=== PATIENT | male | born 1985 | race Caucasian/White ===

== ENCOUNTER → 2018-04-01 | Outpatient (CLI) | payer MEDICAID ==
[~2018-04-01] MED LIST: BUSP10TA95 PO; CATHETER FLUSH 10 ML SYR IV PRN; FLUO10TA PO; QUET100T69 PO
--- NOTE | 2018-04-01 13:38 | Diagnostic Imaging Report ---
Clinical indication: Patient with blood in stool. Comparison: None. Procedure: The patient was administered 5.42 millicuries of technetium 99m Choletec. After 60 minutes of the images, one can of Ensure was drink followed by another 60 minutes of imaging. A nuclear medicine hepatobiliary scan with ejection fraction was performed. Findings: There is prompt uptake and excretion of radiotracer by the liver. Activity is visible in the gallbladder by 25 minutes and the small bowel by 10 minutes. Ejection fraction of the gallbladder is calculated at 41% (normal >35%). The gallbladder visibly empties on the scans following the ingestion of Ensure. Impression: Normal hepatobiliary scan with normal gallbladder ejection fraction. Dictated by: Dictated on workstation # [id number]
== END ==
LOC: CARD 10:18
PROVIDERS: ATTEND Nurse Practitioner Community Health
DX: K92.1 Melena (principal); K92.0 Hematemesis; R19.7 Diarrhea, unspecified
CPT/HCPCS: 78227

== ENCOUNTER 2018-04-14 05:40 | Outpatient (CLI) | payer MEDICAID ==
[~2018-04-14] VITALS: Ht 170.2 cm; Wt 81.6 kg
[2018-04-15] MEDS ORDERED: FLUO10TA PO (09:11)
[2018-04-15] MEDS ORDERED: QUET100T69 PO (09:11)
[2018-04-15] MEDS ORDERED: BUSP10TA95 PO (09:11)
== END 2018-04-14 15:00 | disposition home or self-care (01) ==
LOC: PREOP 05:40
PROVIDERS: ATTEND Surgery
DX: Z01.818 Encounter for other preprocedural examination (principal)

== ENCOUNTER 2018-04-20 09:23 | Day surgery (SDC) | payer MEDICAID ==
[~2018-04-20] VITALS: Ht 170.2 cm; Wt 81.6 kg
[~2018-04-20 09:23] MED LIST changes: -CATHETER FLUSH 10 ML SYR IV PRN
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
--- OUTSIDE RECORDS SUMMARY | 2018-04-20 09:27 | XMS REPORT ---
Author Author SUSHMA KAUFFMAN Organization [employer] Address Unknown Phone Unavailable Care Team Providers Care Component Engineer Name Role Phone SUSHMA KAUFFMAN CP Unavailable Allergies, Adverse Reactions, Alerts Substance Reaction Event Type Penicillin V Potassium unknown Drug Allergy Ibuprofen Info Not Available Drug Allergy Benadryl Unknown reaction Drug Allergy Problems Problem Type Condition Code Onset Dates Condition Status Problem Intermittent explosive disorder 312.34 Active Problem Routine general medical examination at health care facility V70.0 Active Problem Dysthymic disorder 300.4 Active Assessment Depression, unspecified depression type F32.9 Active Problem Acute pharyngitis 462 Active Problem Influenza with other respiratory manifestations 487.1 Active Medications No Known Medications Procedures Procedure Coding System Code Date Office Visit, Est Pt., Level 2 CPT-4 38769 Mar 05, 2016 Vital Signs Date/Time: Mar 05, 2016 Cardiac Monitoring Heart Rate 85 bpm Weight 179 lbs Height 69 in BMI 26.43 Index Blood Pressure Diastolic 70 mmHg Blood Pressure Systolic 120 mmHg Results No Known Results Summary Purpose [employer] Submission
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
[2018-04-20] MEDS ORDERED: LACTATED RINGERS 1,000 ML IV ONE (09:28)
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
--- OUTSIDE RECORDS SUMMARY | 2018-04-20 09:28 | XMS REPORT | Continuity of Care Document ---
Author Author [facility] Address Unknown Phone Unavailable Allergies Active Description Code Type Severity Reaction Onset Reported/Identified Relationship to Patient Clinical Status Yes BENADRYL UNKNOWN UNKNOWN Yes IBUPROFEN UNKNOWN UNKNOWN Yes PENICILLINS MODERATE OTHER Yes Benadryl Drug Allergy N/A N/A 08/11/2013 Yes ibuprofen Drug Allergy N/A N/A 08/11/2013 Yes Penicillins Drug Allergy N/A N/A 08/11/2013 Yes No Allergy Information Available [id number] Drug Allergy Unknown N/A 2017 Yes diphenhydramine [id number] Drug Allergy Unknown RASH 04/15/2018 Yes ibuprofen [id number] Drug Allergy Unknown RASH 04/15/2018 Yes Penicillins [id number] Drug Allergy Unknown ANAPHYLAXIS 04/15/2018 Medications Medication Packaging Start Date Stop Date Route Dosage Sig FAMOTIDINE VIAL INJ 20 MG/2CC (PEPCID VIAL) MG 01/25/2017 01/25/2017 ONCE&2056 PANTOPAZOLE VIAL INJ 40 MG (PROTONIX IV) MG 01/25/2017 01/25/2017 ONCE&2056 NORMAL SALINE 1000CC IV BAG INJ 0.9 % (NS 1000CC IV BAG) ml 01/25/2017 02/09/2017 CONTINUOUSEVERY 0 Hour ONDANSETRON VIAL INJ 4 MG/2CC (ZOFRAN 2CC VIAL) MG 03/12/2018 03/12/2018 PRN ONCE LACTATED RINGERS 1000CC IV BAG INJ ml 03/12/2018 03/12/2018 ONCE&1909 PANTOPRAZOLE VIAL INJ 40 MG (PROTONIX IV) MG 03/12/2018 03/12/2018 ONCE&1909 ONDANSETRON VIAL INJ 4 MG/2CC (ZOFRAN 2CC VIAL) MG 03/12/2018 03/12/2018 PRN ONCE GI COCKTAIL SINGLE DOSE LIQ (GRASSHOPPER) ML 03/12/2018 03/12/2018 ONCE&2042 AZITHROMYCIN TAB 500 MG (ZITHROMAX) MG 03/12/2018 03/12/2018 ONCE&2110 PROMETHAZINE VIAL INJ 25 MG/CC (PHENERGAN VIAL) MG 03/12/2018 03/12/2018 PRN ONCE Problems Date Dx Coded Attending Type Code Diagnosis Diagnosed By 08/11/2013 KHADIJAH COYLE DO 487.1 INFLUENZA WITH OTHER RESPIRATORY MANIFESTATIONS 08/11/2013 KHADIJAH COYLE DO 487.1 INFLUENZA WITH OTHER RESPIRATORY MANIFESTATIONS 08/11/2013 DIANA SESAY DDS 487.1 INFLUENZA WITH OTHER RESPIRATORY MANIFESTATIONS 08/11/2013 JESUS DA SILVA APRN 487.1 INFLUENZA WITH OTHER RESPIRATORY MANIFESTATIONS 08/11/2013 KHADIJAH COYLE DO 487.1 INFLUENZA WITH OTHER RESPIRATORY MANIFESTATIONS 08/11/2013 JESUS DA SILVA APRN 487.1 INFLUENZA WITH OTHER RESPIRATORY MANIFESTATIONS 08/29/2013 KHADIJAH COYLE DO V70.0 ROUTINE GENERAL MEDICAL EXAMINATION AT A HEALTH CARE FACILITY 08/29/2013 DIANA SESAY DDS V70.0 ROUTINE GENERAL MEDICAL EXAMINATION AT A HEALTH CARE FACILITY 08/29/2013 JESUS DA SILVA APRN V70.0 ROUTINE GENERAL MEDICAL EXAMINATION AT A HEALTH CARE FACILITY 08/29/2013 KHADIJAH COYLE DO V70.0 ROUTINE GENERAL MEDICAL EXAMINATION AT A HEALTH CARE FACILITY 08/29/2013 JESUS DA SILVA APRN V70.0 ROUTINE GENERAL MEDICAL EXAMINATION AT A HEALTH CARE FACILITY 08/07/2014 KHADIJAH COYLE DO 462 ACUTE PHARYNGITIS 08/07/2014 JESUS DA SILVA APRN 462 ACUTE PHARYNGITIS 08/16/2014 KHADIJAH COYLE DO 300.4 DYSTHYMIC DISORDER 08/16/2014 KHADIJAH COYLE DO 312.34 INTERMITTENT EXPLOSIVE DISORDER 08/16/2014 JESUS DA SILVA APRN 300.4 DYSTHYMIC DISORDER 08/16/2014 JESUS DA SILVA APRN 312.34 INTERMITTENT EXPLOSIVE DISORDER 01/25/2017 KENNEDI MIRANDA 535.00 ACUTE GASTRITIS, WITHOUT MENTION OF HEMORRHAGE 01/25/2017 KENNEDI MIRANDA K29.00 ACUTE GASTRITIS WITHOUT BLEEDING 03/12/2018 Anthony Mendoza 535.00 ACUTE GASTRITIS, WITHOUT MENTION OF HEMORRHAGE 03/12/2018 Anthony Mendoza K29.00 ACUTE GASTRITIS WITHOUT BLEEDING 04/14/2018 AMELIA FELIX DO Ot Z01.818 ENCOUNTER FOR OTHER PREPROCEDURAL EXAMIN 04/14/2018 SHAHBAZ CROWDER Ot K92.0 HEMATEMESIS 04/14/2018 SHAHBAZ CROWDER Ot K92.1 MELENA 04/14/2018 SHAHBAZ CROWDER Ot R19.7 DIARRHEA, UNSPECIFIED 04/15/2018 AMELIA FELIX DO Ot Z01.818 ENCOUNTER FOR OTHER PREPROCEDURAL EXAMIN 04/15/2018 AMELIA FELIX DO, Ot Z01.818 ENCOUNTER FOR OTHER PREPROCEDURAL EXAMIN 04/20/2018 SHAHBAZ CROWDER Ot K92.0 HEMATEMESIS 04/20/2018 SHAHBAZ CROWDER Ot K92.1 MELENA 04/20/2018 SHAHBAZ CROWDER Ot R19.7 DIARRHEA, UNSPECIFIED Procedures Code Description [place] [address] INFLUENZA A & B (IN-HOUSE) 08/11/2013 75162 ROUTINE VENIPUNCTURE 08/16/2014 37613 URINE DRUG SCREEN (IN-HOUSE ) 08/16/2014 82900 TSH 08/16/2014 94072 A1C (IN-HOUSE) 08/16/2014 Results Test Result Range Amylase - 01/25/17 20:56 Amylase 56 U/L 20-100 CMP - 07/17/17 09:49 GLUCOSE 64 mg/dL 65-99 UREA NITROGEN (BUN) 18 mg/dL 7-25 CREATININE 1.06 mg/dL 0.60-1.35 eGFR NON-AFR. ZAMBIAN 91 mL/min/1.73m2 > OR=60 eGFR 106 mL/min/1.73m2 > OR=60 BUN/CREATININE RATIO NOT APPLICABLE (calc) 6-22 SODIUM 140 mmol/L 135-146 POTASSIUM 4.3 mmol/L 3.5-5.3 CHLORIDE 104 mmol/L 98-110 CARBON DIOXIDE 28 mmol/L 20-31 CALCIUM 9.7 mg/dL 8.6-10.3 PROTEIN, TOTAL 7.0 g/dL 6.1-8.1 ALBUMIN 4.5 g/dL 3.6-5.1 GLOBULIN 2.5 g/dL (calc) 1.9-3.7 ALBUMIN/GLOBULIN RATIO 1.8 (calc) 1.0-2.5 BILIRUBIN, TOTAL 0.5 mg/dL 0.2-1.2 ALKALINE PHOSPHATASE 73 U/L 40-115 AST 19 U/L 10-40 ALT 28 U/L 9-46 Mycoplasma - 03/12/18 19:10 Mycoplasma Positive Negative Lipase - 03/12/18 19:10 Lipase 44 U/L 7-59 Urinalysis - 03/12/18 20:00 Icotest N/A Negative Urine Crystals Amorphous material: few/HPF Urine Volume Urine Volume Sufficient (10mL) Urine-Appearance Slightly cloudy Clear Urine-Bacteria Trace Urine-Bilirubin Negative Negative Urine-Blood Negative Negative Urine-Color Yellow Colorless-Lt. Yellow Urine-Epithelial Cells 0-5/HPF Urine-Glucose Negative Negative Urine-Ketones 1+ Negative Urine-Leukocytes Negative Negative Urine-Mucus 4+ Urine-Nitrite Negative Negative Urine-Other Urine Saved if Culture Needed (48hrs from time of collection) Urine-pH 5.5 5-8.5 Urine-Protein Negative Negative Urine-RBC 0-2/HPF Urine-Specific [place] >=1.030 1.000-1.030 Urine-WBC 2-5/HPF Urobilinogen 0.2 0.2-1.0 Encounters ACCT No. Visit Date/Time Discharge Status Pt. Type Provider Facility Loc./Unit Complaint [id number] 10/02/2014 14:57:00 10/02/2014 23:59:59 CLS Outpatient JESUS DA SILVA APRN [id number] 08/16/2014 09:49:00 08/16/2014 23:59:59 CLS Outpatient KHADIJAH COYLE DO [id number] 04/12/2014 14:51:00 04/12/2014 23:59:59 CLS Outpatient JESUS DA SILVA APRN [id number] 10/26/2013 07:49:00 10/26/2013 23:59:59 CLS Outpatient DIANA SESAY DDS [id number] 08/29/2013 15:38:00 08/29/2013 23:59:59 CLS Outpatient KHADIJAH COYLE DO [id number] 08/11/2013 14:18:00 08/11/2013 23:59:59 [place] [id number] 01/15/2018 16:40:00 01/15/2018 23:59:59 CLS Outpatient DALY GARCIASUSHMA Juarez [facility] [id number] 07/17/2017 09:20:00 Document Registration [id number] 03/12/2018 18:13:00 Document Registration [id number] 03/12/2018 18:13:00 03/12/2018 21:40:00 [facility] [id number] 01/25/2017 20:07:00 01/25/2017 22:10:00 DIS Outpatient KENNEDI MIRANDA [id number] 01/25/2017 20:57:33 Document Registration [id number] 04/14/2018 05:40:00 04/14/2018 15:00:00 DIS Outpatient AMELIA FELIX DO Via [facility] PREOP COLONOSCOPY/EGD [id number] 04/01/2018 10:18:00 04/01/2018 23:59:59 CLS Outpatient SHAHBAZ CROWDER [facility] CARD BLOOD IN STOOL, HEMATEMESIS W/ NAUSEA [id number] 04/20/2018 09:23:00 ACT Outpatient AMELIA FELIX DO [facility] ENDO DIARRHEA/BLOOD IN STOOL/EPIGASTRIC ABD PAIN
[2018-04-20 09:30] VITALS: BP 121/86
[2018-04-20] MEDS ORDERED: LACTATED RINGERS 1,000 ML IV STA (09:35)
[2018-04-20] MEDS ORDERED: HURRICAINE EXT TUBE (BENZOCAINE) ONE (09:45)
[2018-04-20] MEDS ORDERED: HURRICAINE EXT TUBE (BENZOCAINE) XX PRN (09:45)
[2018-04-20] MEDS ORDERED: PROPOFOL INJECTION 50 ML IV ONE ×2 (09:54→10:13)
[2018-04-20] MEDS ORDERED: MIDAZOLAM 2 MG/2 ML (VERSED) VIAL ONE (09:55)
--- NOTE | 2018-04-20 09:57 | Progress Note-Pre Operative ---
Pre-Operative Progress Note H&P Reviewed The H&P was reviewed, patient examined and no changes noted. Date Seen by Provider: Apr 20, 2018 Time Seen by Provider: 09:57 Date H&P Reviewed: Apr 20, 2018 Time H&P Reviewed: 09:57 Pre-Operative Diagnosis: epigastric abdominal pain, blood in stool, diarrhea AMELIA FELIX DO Apr 20, 2018 09:57
[2018-04-20] MEDS ORDERED: PANT40TA2 PO (10:29)
--- NOTE | 2018-04-20 10:29 | Progress Note-Post Operative ---
Post-Operative Progess Note Surgeon (s)/Master Control Operator (s) Surgeon AMELIA FELIX DO Master Control Operator: na Pre-Operative Diagnosis epigastric abdominal pain, blood in stool, diarrhea Post-Operative Diagnosis small hiatal hernia, reflux esophagitis, normal colon Procedure & Operative Findings Date of Procedure 04/20/18 Procedure Performed/Findings egd c biopsies, colonoscopy Anesthesia Type per rice dryer mechanic Estimated Blood Loss Estimated blood loss (mL): none Specimens/Packing Specimens Removed antrum, ge AMELIA FELIX DO Apr 20, 2018 10:29
--- NOTE | 2018-04-20 10:31 | Discharge Inst-Simple/Standard ---
Discharge Inst-Standard Discharge Medications New, Converted or Re-Newed RX: Transmitted to Pharmacy Patient Instructions/Follow Up Plan of Care/Instructions/FU: 2 weeks Chand[place] Activity as Tolerated: Yes Discharge Diet: Regular Diet AMELIA FELIX DO Apr 20, 2018 10:31
[2018-04-20 11:15] VITALS: BP 115/71
[2018-04-20 11:45] VITALS: BP 116/79
[2018-04-20 12:10] VITALS: BP 116/79
--- NOTE | 2018-04-20 14:10 | OPERATIVE REPORT ---
DATE OF SERVICE: 04/20/2018 PREOPERATIVE DIAGNOSES: Epigastric abdominal pain, blood in stool, diarrhea. POSTOPERATIVE DIAGNOSES: Small hiatal hernia, reflux esophagitis, normal colon. PROCEDURE: EGD with biopsies and colonoscopy. SURGEON: Amelia Tariq DO ANESTHESIA: Per HEAD OF CYTOGENETICS. ESTIMATED BLOOD LOSS: None. COMPLICATIONS: None. INDICATIONS: The patient is a 33-year-old male with epigastric abdominal pain. He states he had some blood in stools and having some diarrhea. He understands risks and benefits of procedure and wished to proceed with procedure. Consent was signed on the chart. DESCRIPTION OF PROCEDURE: The patient was taken to the endoscopy suite, placed in left lateral recumbent position. Timeout was performed. Scope was inserted into the mouth, down the esophagus, stomach and into the duodenum without difficulty. There were no polyps, masses or ulcerations in the duodenum. Scope was slowly retracted back into the stomach where it was further insufflated. No polyps, masses or ulcerations. No erythematous changes. Biopsy of the antrum was obtained. Scope was retroflexed noting a small hiatal hernia, no other pathology. Scope was then returned to its normal position, slowly withdrawn to the distal esophagus, had significant erythema at the GE junction. Biopsy of the GE junction was obtained. Scope was then slowly retracted back until completely removed, noting no other pathology. Digital rectal exam was performed. There were no palpable polyps, masses or ulcerations. The scope was inserted in the rectum and advanced all the way to the cecum with minimal difficulty. Prep was adequate. Scope was then slowly retracted back. There were no polyps, masses or ulcerations in the cecum, ascending, transverse, descending and sigmoid colon. Once in the rectum, scope was also retroflexed noting no other pathology. Scope was returned to its normal position, slowly withdrawn until completely removed. RECOMMENDATIONS: The patient was started on Protonix 40 mg daily if this does not improve his symptoms. He will follow up in the office in approximately 2 weeks. If he has any return of condition, he should be reevaluated at that time. The patient will need repeat colonoscopy per routine guidelines. Job ID: [id number] DocumentID: [id number] Dictated Date: 04/20/2018 10:33:03 School Physical Therapist Date: 04/20/2018 14:09:22 Dictated By: AMELIA TARIQ DO
--- NOTE | 2018-04-20 14:28 | Anesthesia-General Post-Op ---
MAC Patient Condition Mental Status/LOC: Same as Preop Cardiovascular: Satisfactory Nausea/Vomiting: Absent Respiratory: Satisfactory Pain: Controlled Complications: Absent Post Op Complications Complications None Follow Up Care/Instructions Patient Instructions None needed. Anesthesiology Discharge Order Discharge Order Patient is doing well, no complaints, stable vital signs, no apparent adverse anesthesia problems. No complications reported per nursing. YAAKOV SAVAGE CRNA Apr 20, 2018 14:28
[2018-04-21] MEDS ORDERED: ONDA8TAB13 SL (22:43)
[2018-04-23] MEDS ORDERED: CEFD300C3 PO (11:32)
== END 2018-04-20 12:10 | disposition home or self-care (01) ==
LOC: ENDO 09:23
PROVIDERS: ATTEND Surgery
DX: K21.0 Gastro-esophageal reflux disease with esophagitis (principal); K44.9 Diaphragmatic hernia without obstruction or gangrene; R19.7 Diarrhea, unspecified; K92.1 Melena; F17.210 Nicotine dependence, cigarettes, uncomplicated

== ENCOUNTER 2018-04-21 22:23 | Inpatient (IN) | payer MEDICAID ==
[~2018-04-21] VITALS: Ht 170.2 cm; Wt 81.6 kg
[~2018-04-21 22:23] MED LIST changes: +PANT40TA2 PO
--- OUTSIDE RECORDS SUMMARY | 2018-04-21 22:29 | XMS REPORT | Continuity of Care Document ---
Author Author [facility] Address Unknown Phone Unavailable Allergies Active Description Code Type Severity Reaction Onset Reported/Identified Relationship to Patient Clinical Status Yes BENADRYL UNKNOWN UNKNOWN Yes IBUPROFEN UNKNOWN UNKNOWN Yes PENICILLINS MODERATE OTHER Yes Benadryl Drug Allergy N/A N/A 08/11/2013 Yes ibuprofen Drug Allergy N/A N/A 08/11/2013 Yes Penicillins Drug Allergy N/A N/A 08/11/2013 Yes No Allergy Information Available [id number] Drug Allergy Unknown N/A 2017 Yes diphenhydramine [id number] Drug Allergy Unknown RASH 04/15/2018 Yes ibuprofen [id number] Drug Allergy Unknown RASH 04/15/2018 Yes Penicillins [id number] Drug Allergy Unknown ANAPHYLAXIS 04/15/2018 Medications Medication [...] Procedures Code [place] [address] INFLUENZA A & B (IN-HOUSE) 08/11/2013 05301 ROUTINE VENIPUNCTURE 08/16/2014 54809 URINE DRUG SCREEN (IN-HOUSE ) 08/16/2014 13920 TSH 08/16/2014 48159 A1C (IN-HOUSE) 08/16/2014 Results Test Result Range Amylase - 01/25/17 20:56 Amylase 56 U/L 20-100 CMP - 07/17/17 09:49 GLUCOSE 64 mg/dL 65-99 UREA NITROGEN (BUN) 18 mg/dL 7-25 CREATININE 1.06 mg/dL 0.60-1.35 eGFR NON-AFR. TOGOLESE 91 mL/min/1.73m2 > OR=60 eGFR 106 mL/min/1.73m2 [...] 5-8.5 Urine-Protein Negative Negative Urine-RBC 0-2/HPF Urine-Specific [place] >=1.030 1.000-1.030 Urine-WBC 2-5/HPF Urobilinogen 0.2 0.2-1.0 Encounters ACCT No. Visit Date/Time Discharge Status Pt. Type Provider Facility Loc./Unit Complaint [id number] 10/02/2014 14:57:00 10/02/2014 23:59:59 CLS Outpatient JESUS DA SILVA APRN [id number] 08/16/2014 09:49:00 08/16/2014 23:59:59 CLS Outpatient KHADIJAH COYLE DO [id number] 04/12/2014 14:51:00 04/12/2014 23:59:59 CLS Outpatient JESUS DA SILVA APRN [id number] 10/26/2013 07:49:00 10/26/2013 23:59:59 CLS Outpatient DIANA SESAY DDS [id number] 08/29/2013 15:38:00 08/29/2013 23:59:59 CLS Outpatient KHADIJAH COYLE DO [id number] 08/11/2013 14:18:00 08/11/2013 23:59:59 [place] [id number] 01/15/2018 16:40:00 01/15/2018 23:59:59 CLS Outpatient SUSHMA KAUFFMAN APRN [facility] [id number] 07/17/2017 09:20:00 Document Registration [id number] 03/12/2018 18:13:00 Document Registration [id number] 03/12/2018 18:13:00 03/12/2018 21:40:00 [facility] [id number] 01/25/2017 20:07:00 01/25/2017 22:10:00 DIS Outpatient KENNEDI MIRANDA [id number] 01/25/2017 20:57:33 Document Registration [id number] 04/20/2018 09:23:00 04/20/2018 12:10:00 DIS Outpatient AMELIA FELIX DO [facility] ENDO DIARRHEA/BLOOD IN STOOL/ EPIGASTRIC ABD PAIN [id number] 04/14/2018 05:40:00 04/14/2018 15:00:00 DIS Outpatient AMELIA FELIX DO [facility] PREOP COLONOSCOPY/EGD [id number] 04/01/2018 10:18:00 04/01/2018 23:59:59 CLS Outpatient SHAHBAZ CROWDER [facility] CARD BLOOD IN STOOL, HEMATEMESIS W/ NAUSEA [id number] 04/21/2018 22:23:00 ACT Emergency ARMANI BANEGAS, ESTEPHANIA Arroyo [facility] ER VOMITING BLOOD
[2018-04-21] MEDS ORDERED: ONDA8TAB13 SL (22:43)
[2018-04-21] MEDS ORDERED: ONDANSETRON 4 MG/2 ML (SDV) Z0FRAN IVP ONE (22:45)
[2018-04-21] MEDS ORDERED: CEFEPIME INJECTION 2,000 MG in NS (IVPB) 50 ML IV ONE (22:45)
[2018-04-21] MEDS ORDERED: fentaNYL INJECTION 100 MCG/2 ML AMP IVP ONE (22:45)
[2018-04-21] MEDS ORDERED: LACTATED RINGERS 1,500 ML IV PRN (22:45)
--- NOTE | 2018-04-21 22:50 | ED GI ---
General Chief Complaint: Abdominal/GI Problems Stated Complaint: VOMITING BLOOD Source of Information: Patient, Spouse Exam Limitations: No Limitations History of Present Illness Date Seen by Provider: Apr 21, 2018 Time Seen by Provider: 22:32 Initial Comments The patient presents to ER with a significant medical history of depression and anxiety and most recently EGD colonoscopy working up his abdominal pain find some gastritis and erosions. Came by private conveyance with his francisco because he had an EGD colonoscopy yesterday by Dr. Felix and then today he had some nausea vomiting, diarrhea for the past 2 days and then some coughing fits. Whenever he coughs he vomits and then he has pain in his midepigastric area. He thinks is related to his gallbladder he had an ultrasound and HIDA scan done that showed his and gallbladder to be punching at low end of normal for ejection fraction. He's had no surgeries on his abdomen and no findings on his colonoscopy. He had a fever today and yesterday of 101 MAXIMUM TEMPERATURE and he was given Tylenol by his significant other yesterday. He was prescribed some Zofran which they picked up this evening and took around 5 or 6:00 at night and he says it did not help with his vomiting. He seemed a little bit of red blood in his vomit. He's having no chest pain or shortness of breath. Nonproductive cough. No painful urination. Allergies and Home Medications Allergies Coded Allergies: Penicillins (Verified Allergy, Unknown, ANAPHYLAXIS, 04/15/18) diphenhydramine (Verified Allergy, Unknown, RASH, 04/15/18) ibuprofen (Verified Allergy, Unknown, RASH, 04/15/18) Home Medications Buspirone HCl 10 Mg Tablet, 10 MG PO BID, (Reported) Fluoxetine HCl 10 Mg Tablet, 30 MG PO DAILY, (Reported) take 3 (10mg) tabs Pantoprazole Sodium 40 Mg Tablet.dr, 40 MG PO DAILY Prescribed by: AMELIA FELIX on 04/20/18 1029 Quetiapine Fumarate 100 Mg Tablet, 100 MG PO HS, (Reported) Patient Home Medication List Home Medication List Reviewed: Yes Review of Systems Review of Systems Constitutional: chills, diaphoresis, fever, malaise EENTM: No Blurred Vision, No Double Vision Respiratory: Cough; Denies Shortness of Air Cardiovascular: Denies Chest Pain, Denies Edema, Denies Irregular Heart Rate, Denies Lightheadedness Gastrointestinal: Denies Abdomen Distended; Abdominal Pain; Denies Constipated ; Diarrhea, Nausea, Poor Appetite, Poor Fluid Intake, Vomiting Genitourinary: Denies Burning, Denies Discharge, Denies Drainage Musculoskeletal: No back pain, No joint pain Past Heddfqm-Lqyytl-Jfvfot Hx Patient Social History Alcohol Use: Denies Use Recreational Drug Use: No Smoking Status: Former Smoker Former Smoker, Quit: Apr 14, 2016 Recent Foreign Travel: No Contact w/Someone Who Travel: No Recent Hopitalizations: No Seasonal Allergies Seasonal Allergies: No Past Medical History Gastroesophageal Reflux Physical Exam Vital Signs Vital Signs - First Documented 04/21/18 22:35 Temp 100.9 Pulse 119 Resp 20 B/P (MAP) 120/96 (104) Pulse Ox 95 O2 Delivery Room Air Capillary Refill : Height/Weight/BMI Height: 5'7.00" Weight: 180lbs. 0.0oz. 81.764883ot; 28.2 BMI Method: General Appearance: WD/WN, mild distress HEENT: PERRL/EOMI, normal ENT inspection, TMs normal, pharynx normal Neck: non-tender, full range of motion, normal inspection Respiratory: chest non-tender, lungs clear, normal breath sounds, no respiratory distress, no accessory muscle use Cardiovascular: normal peripheral pulses, regular rate, rhythm Peripheral Pulses: 2+ Radial Pulses (R), 2+ Radial Pulses (L) Gastrointestinal: normal bowel sounds; No rebound; tenderness, other ( difficult to elicit a reproducible [place] sign. He has tenderness diffusely throughout his abdomen with pain on leg rise and some mesenteric tenderness when percussing his heels.) Extremities: normal range of motion, non-tender, normal inspection, no pedal edema, normal capillary refill Back: normal inspection, no CVA tenderness Neurologic/Psychiatric: no motor/sensory deficits, alert, oriented x 3, other ( anxious affect, tearful) Skin: normal color, warm/dry Focused Exam Lactate Level 04/21/18 23:00: Lactic Acid Level 0.72 Lactic Acid Level Laboratory Tests Test 04/21/18 23:00 Lactic Acid Level 0.72 MMOL/L (0.50-2.00) Progress/Results/Core Measures Results/Orders Lab Results Laboratory Tests Test 04/21/18 22:00 04/21/18 22:50 04/21/18 23:00 Range/Units Lipase 15 8-78 U/L Urine Color YELLOW Urine Clarity CLEAR Urine pH 5 5-9 Urine Specific [place] 1.025 H 1.016-1.022 Urine Protein 2+ H NEGATIVE Urine Glucose (UA) NEGATIVE NEGATIVE Urine Ketones 1+ H NEGATIVE Urine Nitrite NEGATIVE NEGATIVE Urine Bilirubin NEGATIVE NEGATIVE Urine Urobilinogen 1 NORMAL MG/DL Urine Leukocyte Esterase 1+ H NEGATIVE Urine RBC (Auto) NEGATIVE NEGATIVE Urine RBC 5-10 H /HPF Urine WBC 10-25 H /HPF Urine Squamous Epithelial Cells 0-2 /HPF Urine Crystals NONE /LPF Urine Bacteria FEW H /HPF Urine Casts NONE /LPF Urine Mucus LARGE H /LPF Urine Culture Indicated NO White Blood Count 15.4 H 4.3-11.0 10^3/uL Red Blood Count 5.08 4.35-5.85 10^6/uL Hemoglobin 15.2 13.3-17.7 G/DL Hematocrit 43 40-54 % Mean Corpuscular Volume 84 80-99 FL Mean Corpuscular Hemoglobin 30 25-34 PG Mean Corpuscular Hemoglobin Concent 36 32-36 G/DL Red Cell Distribution Width 13.3 10.0-14.5 % Platelet Count 192 130-400 10^3/uL Mean Platelet Volume 10.1 7.4-10.4 FL Neutrophils (%) (Auto) 80 H 42-75 % Lymphocytes (%) (Auto) 10 L 12-44 % Monocytes (%) (Auto) 9 0-12 % Eosinophils (%) (Auto) 1 0-10 % Basophils (%) (Auto) 0 0-10 % Neutrophils # (Auto) 12.3 H 1.8-7.8 X 10^3 Lymphocytes # (Auto) 1.5 1.0-4.0 X 10^3 Monocytes # (Auto) 1.4 H 0.0-1.0 X 10^3 Eosinophils # (Auto) 0.2 0.0-0.3 10^3/uL Basophils # (Auto) 0.0 0.0-0.1 10^3/uL Neutrophils % (Manual) 80 % Lymphocytes % (Manual) 13 % Monocytes % (Manual) 5 % Eosinophils % (Manual) 1 % Basophils % (Manual) 1 % Band Neutrophils 0 % Blood Morphology Comment NORMAL Prothrombin Time 15.1 H 12.2-14.7 SEC INR Comment 1.2 0.8-1.4 Activated Partial Thromboplast Time 34 24-35 SEC Sodium Level 143 135-145 MMOL/L Potassium Level 3.9 3.6-5.0 MMOL/L Chloride Level 108 H 98-107 MMOL/L Carbon Dioxide Level 24 21-32 MMOL/L Anion Gap 11 5-14 MMOL/L Blood Urea Nitrogen 19 H 7-18 MG/DL Creatinine 1.30 0.60-1.30 MG/DL Estimat Glomerular Filtration Rate > 60 BUN/Creatinine Ratio 15 Glucose Level 137 H 70-105 MG/DL Lactic Acid Level 0.72 0.50-2.00 MMOL/L Calcium Level 9.4 8.5-10.1 MG/DL Corrected Calcium 9.1 8.5-10.1 MG/DL Total Bilirubin 0.7 0.1-1.0 MG/DL Aspartate Amino Transf (AST/SGOT) 23 5-34 U/L Alanine Aminotransferase (ALT/SGPT) 35 0-55 U/L Alkaline Phosphatase 74 40-136 U/L Total Protein 7.4 6.4-8.2 GM/DL Albumin 4.4 3.2-4.5 GM/DL Monoscreen NEGATIVE NEGATIVE Micro Results Microbiology 04/21/18 Influenza Types A,B Antigen (GARY) - Final, Complete My Orders Orders - ESTEPHANIA LOMELI Ct Abdomen/Pelvis W (04/21/18 22:41) Saline Lock/Iv-Start (04/21/18 22:41) Cbc With Automated Diff (04/21/18 22:41) Comprehensive Metabolic Panel (04/21/18 22:41) Blood Culture (04/21/18 22:41) Sputum Culture (04/21/18 22:41) Urinalysis (04/21/18 22:41) Urine Culture (04/21/18 22:41) Protime With Inr (04/21/18 22:41) Partial Thromboplastin Time (04/21/18 22:41) Chest 1 View, Ap/Pa Only (04/21/18 22:41) Saline Lock/Iv-Start (04/21/18 22:41) Saline Lock/Iv-Start (04/21/18 22:41) Vital Signs Adult Sepsis Patie Q15M (04/21/18 22:41) O2 (04/21/18 22:41) Remove Rings In Anticipation O (04/21/18 22:41) Lactic Acid Analyzer (04/21/18 22:41) Lactated Ringers (Lr 1000 Ml Iv Solution (04/21/18 22:45) Ondansetron Injection (Zofran Injectio (04/21/18 22:45) Influenza A And B Antigens (04/21/18 22:41) Monotest (04/21/18 22:41) Fentanyl Injection (Sublimaze Injection (04/21/18 22:45) Cefepime Injection (Maxipime Injection) (04/21/18 22:45) Acetaminophen Tablet (Tylenol Tablet) (04/21/18 23:00) Manual Differential (04/21/18 23:00) Iohexol Injection (Omnipaque 350 Mg/Ml 1 (04/21/18 23:45) Ns (Ivpb) (Sodium Chloride 0.9%) (04/21/18 23:45) Lipase (04/21/18 23:43) Promethazine Injection (Phenergan Injec (04/22/18 00:30) Azithromycin Injection (Zithromax Inject (04/22/18 00:30) Ondansetron Injection (Zofran Injectio (04/22/18 00:30) Medications Given in ED Current Medications Medications Dose Ordered Sig/Mitzy Route Start Time Stop Time Status Last Admin Dose Admin Acetaminophen 1,000 mg ONCE ONCE PO 04/21/18 23:00 04/21/18 23:01 DC 04/21/18 23:21 1,000 MG Azithromycin 500 mg/Sodium Chloride 250 ml @ 250 mls/hr ONCE ONCE IV 04/22/18 00:30 04/22/18 01:29 DC 04/22/18 00:42 250 MLS/HR Cefepime HCl 2000 mg/Sodium Chloride 50 ml @ 100 mls/hr ONCE ONCE IV 04/21/18 22:45 04/21/18 23:14 DC 04/21/18 23:20 100 MLS/HR Fentanyl Citrate 50 mcg ONCE ONCE IVP 04/21/18 22:45 04/21/18 22:47 DC 04/21/18 23:04 50 MCG Iohexol 100 ml ONCE ONCE IV 04/21/18 23:45 04/21/18 23:46 DC 04/21/18 23:50 100 ML Lactated Ringer's 1,500 ml @ 1,500 mls/hr PRN PRN IV 04/21/18 22:45 04/21/18 23:04 1,500 MLS/HR Ondansetron HCl 4 mg ONCE ONCE IVP 04/21/18 22:45 04/21/18 22:47 DC 04/21/18 23:04 4 MG Ondansetron HCl 4 mg ONCE ONCE IVP 04/22/18 00:30 04/22/18 00:31 DC 04/22/18 00:41 4 MG Promethazine HCl 25 mg ONCE ONCE IVP 04/22/18 00:30 04/22/18 00:31 DC 04/22/18 00:41 25 MG Sodium Chloride 250 ml ONCE ONCE IV 04/21/18 23:45 04/21/18 23:46 DC 04/21/18 23:50 80 ML Vital Signs/I&O 04/21/18 04/21/18 04/21/18 22:35 23:04 23:21 Temp 100.9 100.9 100.9 Pulse 119 Resp 20 B/P (MAP) 120/96 (104) Pulse Ox 95 O2 Delivery Room Air 04/22/18 00:00 Intake Total 50 ml Balance 50 ml Progress Progress Note : Time: 22:49 Progress Note Septic workup, LR, cefepime. Is not sure what his reaction to penicillin as he just knows the hospital stay associated with the use of it. Since he states he has a allergy to ibuprofen is probably more related to his gastritis/erosions so we will use fentanyl instead. We'll give him another dose of Zofran IV see if we can get his nausea under control as well as some IV fluids and a CT of the abdomen and pelvis with contrast. Diagnostic Imaging Diagonstic Imaging: Xray Plain Films/CT/US/NM/MRI: chest (1v) Comments Faint bibasilar infiltrates seen. Reviewed: Reviewed by Me Diagonstic Imaging: CT (with contrast) Plain Films/CT/US/NM/MRI: abdomen, pelvis Comments Bilateral basilar infiltrates for which follow-up is recommended. Unremarkable abdomen pelvis otherwise. Reviewed: Reviewed by Me Departure Communication (Admissions) Time/Spoke to Admitting Phy: 01:00 Discussed case lab imaging findings with Dr. Jurado and she agrees to accept the patient. Impression Primary Impression: Pneumonia Qualified Codes: J18.1 - Lobar pneumonia, unspecified organism Additional Impressions: UTI (urinary tract infection) Qualified Codes: N30.01 - Acute cystitis with hematuria Sepsis Qualified Codes: A41.9 - Sepsis, unspecified organism Disposition: ADMITTED INPATIENT Condition: Stable Admissions Decision to Admit Reason: Admit from ER (General) Decision to Admit/Date: Apr 22, 2018 Time/Decision to Admit Time: 01:00 Departure-Patient Inst. Referrals: SHAHBAZ CROWDER (PCP/Family) Primary Care Physician Copy Copies To 1: KHADIJAH COYLE TITUS J Apr 21, 2018 22:50
[2018-04-21] MEDS ORDERED: ACETAMINOPHEN 500 MG TAB (TYLENOL) PO ONE (23:00)
[2018-04-21 23:18] LABS: BASOPHILS % (AUTO) 0 % (0-10); EOSINOPHILS # (AUTO) 0.2 10^3/uL (0.0-0.3); EOSINOPHILS % (AUTO) 1 % (0-10); HEMATOCRIT 43 % (40-54); HEMOGLOBIN 15.2 G/DL (13.3-17.7); LYMPHOCYTES # (AUTO) 1.5 X 10^3 (1.0-4.0); LYMPHOCYTES % (AUTO) 10 % (12-44); MEAN CORPUSCULAR HEMOGLOBIN 30 PG (25-34); MEAN CORPUSCULAR HGB CONC 36 G/DL (32-36); MEAN CORPUSCULAR VOLUME 84 FL (80-99); MEAN PLATELET VOLUME 10.1 FL (7.4-10.4); MONOCYTES # (AUTO) 1.4 X 10^3 (0.0-1.0); MONOCYTES % (AUTO) 9 % (0-12); NEUTROPHILS # (AUTO) 12.3 X 10^3 (1.8-7.8); NEUTROPHILS % (AUTO) 80 % (42-75); PLATELET COUNT 192 10^3/uL (130-400); RED BLOOD COUNT 5.08 10^6/uL (4.35-5.85); RED CELL DISTRIBUTION WIDTH 13.3 % (10.0-14.5); WHITE BLOOD COUNT 15.4 10^3/uL (4.3-11.0)
[2018-04-21 23:19] LABS: BILIRUBIN,URINE NEGATIVE (NEGATIVE); CLARITY,URINE CLEAR; COLOR,URINE YELLOW; GLUCOSE, URINE (UA) NEGATIVE (NEGATIVE); KETONES,URINE 1+ (NEGATIVE); LEUKOCYTE ESTERASE ,URINE 1+ (NEGATIVE); NITRITE,URINE NEGATIVE (NEGATIVE); PH,URINE 5 (5-9); PROTEIN,URINE 2+ (NEGATIVE); UROBILINOGEN,URINE 1 MG/DL (NORMAL)
[2018-04-21 23:26] LABS: BACTERIA,URINE FEW /HPF; SQUAMOUS EPITHELIAL CELL,UR 0-2 /HPF
[2018-04-21 23:29] LABS: BAND NEUTROPHILS 0 %; BASOPHILS % (MANUAL) 1 %; EOSINOPHILS % (MANUAL) 1 %; LYMPHOCYTES % (MANUAL) 13 %; MONOCYTES % (MANUAL) 5 %; NEUTROPHILS % (MANUAL) 80 %; RBC MORPH NORMAL
[2018-04-21 23:31] LABS: INR 1.2 (0.8-1.4); PROTHROMBIN TIME PATIENT 15.1 SEC (12.2-14.7)
[2018-04-21 23:41] LABS: ALANINE AMINOTRANSFERASE 35 U/L (0-55); ALBUMIN 4.4 GM/DL (3.2-4.5); ALKALINE PHOSPHATASE 74 U/L (40-136); BILIRUBIN,TOTAL 0.7 MG/DL (0.1-1.0); BUN/CREATININE RATIO 15; CALCIUM 9.4 MG/DL (8.5-10.1); CARBON DIOXIDE 24 MMOL/L (21-32); CHLORIDE 108 MMOL/L (98-107); GFR ESTIMATED > 60; GLUCOSE 137 MG/DL (70-105); POTASSIUM 3.9 MMOL/L (3.6-5.0); SODIUM 143 MMOL/L (135-145); TOTAL PROTEIN 7.4 GM/DL (6.4-8.2)
[2018-04-21] MEDS ORDERED: IOHEXOL 350 MG/ML 100 ML (OMNIPAQUE 350) VIAL IV ONE (23:45)
[2018-04-21] MEDS ORDERED: NS 250 ML (IVPB) BAG IV ONE (23:45)
[2018-04-22] VITALS (7 sets, daily range): BP systolic 114–134; BP diastolic 65–80
[2018-04-22] MEDS ORDERED: ONDANSETRON 4 MG/2 ML (SDV) Z0FRAN IVP ONE (00:30)
[2018-04-22] MEDS ORDERED: PROMETHAZINE INJ 25 MG/ML (PHENERGAN) AMP IVP ONE (00:30)
[2018-04-22] MEDS ORDERED: AZITHROMYCIN INJECTION 500 MG in NS (IVPB) 250 ML IV ONE (00:30)
--- OUTSIDE RECORDS SUMMARY | 2018-04-22 01:27 | XMS REPORT | Continuity of Care Document ---
Author Author [facility] Address Unknown Phone Unavailable Allergies Active Description Code Type Severity Reaction Onset Reported/Identified Relationship to Patient Clinical Status Yes BENADRYL UNKNOWN UNKNOWN Yes IBUPROFEN UNKNOWN UNKNOWN Yes PENICILLINS MODERATE OTHER Yes Benadryl Drug Allergy N/A N/A 08/11/2013 Yes ibuprofen Drug Allergy N/A N/A 08/11/2013 Yes Penicillins Drug Allergy N/A N/A 08/11/2013 Yes No Allergy Information Available [id number] Drug Allergy Unknown N/A 2017 Yes diphenhydramine [id number] Drug Allergy Unknown RASH 04/15/2018 Yes ibuprofen [id number] Drug Allergy Unknown RASH 04/15/2018 Yes Penicillins [id number] Drug Allergy Unknown ANAPHYLAXIS 04/15/2018 Medications Medication [...] EXAMINATION AT A HEALTH CARE FACILITY 08/29/2013 JSEUS DA SILVA APRN V70.0 ROUTINE GENERAL MEDICAL [...] GASTRITIS, WITHOUT MENTION OF HEMORRHAGE 01/25/2017 KENNEDI MIARNDA K29.00 ACUTE GASTRITIS WITHOUT BLEEDING 03/12/2018 Anthony [...] Procedures Code [place] [address] INFLUENZA A & B (IN-HOUSE) 08/11/2013 42249 ROUTINE VENIPUNCTURE 08/16/2014 05706 URINE DRUG SCREEN (IN-HOUSE ) 08/16/2014 46682 TSH 08/16/2014 73021 A1C (IN-HOUSE) 08/16/2014 Results Test Result Range Amylase - 01/25/17 20:56 Amylase 56 U/L 20-100 CMP - 07/17/17 09:49 GLUCOSE 64 mg/dL 65-99 UREA NITROGEN (BUN) 18 mg/dL 7-25 CREATININE 1.06 mg/dL 0.60-1.35 eGFR NON-AFR. DANISH 91 mL/min/1.73m2 > OR=60 eGFR 106 mL/min/1.73m2 [...] 5-8.5 Urine-Protein Negative Negative Urine-RBC 0-2/HPF Urine-Specific [place] >=1.030 1.000-1.030 Urine-WBC 2-5/HPF Urobilinogen 0.2 0.2-1.0 Lipase - 04/21/18 22:00 Lipase 15 U/L 8-78 Complete urinalysis with reflex to culture - 04/21/18 22:50 Urine color determination YELLOW NRG Urine clarity determination CLEAR NRG Urine pH measurement by test strip 5 5-9 Specific gravity of urine by test strip 1.025 1.016- 1.022 Urine protein assay by test strip, semi-quantitative 2+ NEGATIVE Urine glucose detection by automated test strip NEGATIVE NEGATIVE Erythrocytes detection in urine sediment by light microscopy NEGATIVE NEGATIVE Urine ketones detection by automated test strip 1+ NEGATIVE Urine nitrite detection by test strip NEGATIVE NEGATIVE Urine total bilirubin detection by test strip NEGATIVE NEGATIVE Urine urobilinogen measurement by automated test strip (mass/volume) 1 mg/dL NORMAL Urine leukocyte esterase detection by dipstick 1+ NEGATIVE Automated urine sediment erythrocyte count by microscopy (number/high power field) [HPF] NRG Automated urine sediment leukocyte count by microscopy (number/high power field ) [HPF] NRG Bacteria detection in urine sediment by light microscopy FEW NRG Squamous epithelial cells detection in urine sediment by light microscopy 0-2 NRG Crystals detection in urine sediment by light microscopy NONE NRG Casts detection in urine sediment by light microscopy NONE NRG Mucus detection in urine sediment by light microscopy LARGE NRG Complete urinalysis with reflex to culture NO NRG Complete blood count (CBC) with automated white blood cell (WBC) differential - 04/21/18 23:00 Blood leukocytes automated count (number/volume) 15.4 10*3/uL 4.3-11.0 Blood erythrocytes automated count (number/volume) 5.08 10*6/uL 4.35-5.85 Venous blood hemoglobin measurement (mass/volume) 15.2 g/dL 13.3-17.7 Blood hematocrit (volume fraction) 43 % 40-54 Automated erythrocyte mean corpuscular volume 84 [foz_us] 80-99 Automated erythrocyte mean corpuscular hemoglobin (mass per erythrocyte) 30 pg 25-34 Automated erythrocyte mean corpuscular hemoglobin concentration measurement ( mass/volume) 36 g/dL 32-36 Automated erythrocyte distribution width ratio 13.3 % 10.0-14.5 Automated blood platelet count (count/volume) 192 10*3/uL 130-400 Automated blood platelet mean volume measurement 10.1 [foz_us] 7.4-10.4 Automated blood neutrophils/100 leukocytes 80 % 42-75 Automated blood lymphocytes/100 leukocytes 10 % 12-44 Blood monocytes/100 leukocytes 9 % 0-12 Automated blood eosinophils/100 leukocytes 1 % 0-10 Automated blood basophils/100 leukocytes 0 % 0-10 Blood neutrophils automated count (number/volume) 12.3 10*3 1.8-7.8 Blood lymphocytes automated count (number/volume) 1.5 10*3 1.0-4.0 Blood monocytes automated count (number/volume) 1.4 10*3 0.0-1.0 Automated eosinophil count 0.2 10*3/uL 0.0-0.3 Automated blood basophil count (count/volume) 0.0 10*3/uL 0.0-0.1 Blood manual differential performed detection - 04/21/18 23:00 Blood monocytes/100 leukocytes 5 % NRG Manual blood segmented neutrophils/100 leukocytes 80 % NRG Blood band neutrophils/100 leukocytes 0 % NRG Manual blood lymphocytes/100 leukocytes 13 % NRG Manual eosinophils/100 leukocytes in nose 1 % NRG Manual blood basophils/100 leukocytes 1 % [facility] Blood erythrocyte morphology finding identification NORMAL [facility] Serum heterophile antibody titer - 04/21/18 23:00 Serum heterophile antibody titer NEGATIVE NEGATIVE PT panel in platelet poor plasma by coagulation assay - 04/21/18 23:00 Prothrombin time (PT) in platelet poor plasma by coagulation assay 15.1 s 12.2-14.7 INR in platelet poor plasma or blood by coagulation assay 1.2 0.8-1.4 Activated partial thromboplastin time (aPTT) in platelet poor plasma bycoagulation assay - 04/21/18 23:00 Activated partial thromboplastin time (aPTT) in platelet poor plasma bycoagulation assay 34 s 24-35 Blood lactic acid measurement (moles/volume) - 04/21/18 23:00 Blood lactic acid measurement (moles/volume) 0.72 mmol/L 0.50-2.00 Influenza virus A and B antigen detection - 04/21/18 23:00 FLU RESULT NEGATIVE FOR INFLUENZA A AND B ANTIGENS BY IA [facility] Comprehensive metabolic panel - 04/21/18 23:00 Serum or plasma sodium measurement (moles/volume) 143 mmol/L 135-145 Serum or plasma potassium measurement (moles/volume) 3.9 mmol/L 3.6-5.0 Serum or plasma chloride measurement (moles/volume) 108 mmol/L 98-107 Carbon dioxide 24 mmol/L 21-32 Serum or plasma anion gap determination (moles/volume) 11 mmol/L 5-14 Serum or plasma urea nitrogen measurement (mass/volume) 19 mg/dL 7-18 Serum or plasma creatinine measurement (mass/volume) 1.30 mg/dL 0.60-1.30 Serum or plasma urea nitrogen/creatinine mass ratio 15 [facility] Serum or plasma creatinine measurement with calculation of estimated glomerular filtration rate > [facility] Serum or plasma glucose measurement (mass/volume) 137 mg/dL 70-105 Serum or plasma calcium measurement (mass/volume) 9.4 mg/dL 8.5-10.1 Serum or plasma total bilirubin measurement (mass/volume) 0.7 mg/dL 0.1-1.0 Serum or plasma alkaline phosphatase measurement (enzymatic activity/volume) 74 U/L 40-136 Serum or plasma aspartate aminotransferase measurement (enzymatic activity/ volume) 23 U/L 5-34 Serum or plasma alanine aminotransferase measurement (enzymatic activity/volume ) 35 U/L 0-55 Serum or plasma protein measurement (mass/volume) 7.4 g/dL 6.4-8.2 Serum or plasma albumin measurement (mass/volume) 4.4 g/dL 3.2-4.5 CALCIUM CORRECTED 9.1 mg/dL 8.5-10.1 Encounters ACCT No. Visit Date/Time Discharge Status Pt. Type Provider Facility Loc./Unit Complaint [id number] 10/02/2014 14:57:00 10/02/2014 23:59:59 CLS Outpatient JESUS DA SILVA APRN [id number] 08/16/2014 09:49:00 08/16/2014 23:59:59 CLS Outpatient KHADIJAH COYLE DO [id number] 04/12/2014 14:51:00 04/12/2014 23:59:59 CLS Outpatient JESUS DA SILVA APRN [id number] 10/26/2013 07:49:00 10/26/2013 23:59:59 CLS Outpatient DIANA SESAY DDS [id number] 08/29/2013 15:38:00 08/29/2013 23:59:59 CLS Outpatient KHADIJAH COYLE DO [id number] 08/11/2013 14:18:00 08/11/2013 23:59:59 [place] [id number] 01/15/2018 16:40:00 01/15/2018 23:59:59 CLS Outpatient SUSHMA KAUFFMAN [facility]N [facility] [id number] 07/17/2017 09:20:00 Document Registration [id number] 03/12/2018 18:13:00 Document Registration [id number] 03/12/2018 18:13:00 03/12/2018 21:40:00 DIS Outpatient Reji [facility] ER [id number] 01/25/2017 20:07:00 01/25/2017 22:10:00 DIS Outpatient KENNEDI MIRANDA [id number] 01/25/2017 20:57:33 Document Registration [id number] 04/20/2018 09:23:00 04/20/2018 12:10:00 DIS Outpatient AMELIA FELIX DO [facility] ENDO DIARRHEA/BLOOD IN STOOL/ EPIGASTRIC ABD PAIN [id number] 04/14/2018 05:40:00 04/14/2018 15:00:00 DIS Outpatient AMELIA FELIX DO [facility] PREOP COLONOSCOPY/EGD [id number] 04/01/2018 10:18:00 04/01/2018 23:59:59 CLS Outpatient SHAHBAZ CROWDER [facility] CARD BLOOD IN STOOL, HEMATEMESIS W/ NAUSEA [id number] 04/22/2018 01:00:00 ACT Inpatient MANDIE BANEGAS, LINWOOD Juarez [facility] 4TH PNA,UTI,SEPSIS
[2018-04-22] MEDS ORDERED: fentaNYL INJECTION 100 MCG/2 ML AMP ONE (02:50)
[2018-04-22] MEDS ORDERED: 1/2 NS W/KCL 20 MEQ/L 1,000 ML IV ONE (02:50)
[2018-04-22] MEDS ORDERED: PROMETHAZINE INJ 25 MG/ML (PHENERGAN) AMP IV PRN (03:00)
[2018-04-22] MEDS ORDERED: AZITHROMYCIN INJECTION 500 MG in NS (IVPB) 250 ML IV SCH (03:00)
[2018-04-22] MEDS ORDERED: ONDANSETRON 4 MG/2 ML (SDV) Z0FRAN IV PRN (03:00)
[2018-04-22] MEDS ORDERED: ACETAMINOPHEN 500 MG TAB (TYLENOL) PO PRN (03:00)
[2018-04-22] MEDS: fentaNYL INJECTION 100 MCG/2 ML AMP IV PRN ×3 (03:01→20:17)
[2018-04-22] MEDS: 1/2 NS W/KCL 20 MEQ/L 1,000 ML IV SCH ×4 (03:01→22:25)
[2018-04-22] MEDS ORDERED: RT-ALBUTEROL SULF 2.5 MG/3 ML PRE-MIX VIAL INH PRN (03:45)
[2018-04-22 05:14] LABS: BASOPHILS % (AUTO) 0 % (0-10); EOSINOPHILS # (AUTO) 0.2 10^3/uL (0.0-0.3); EOSINOPHILS % (AUTO) 1 % (0-10); HEMATOCRIT 40 % (40-54); HEMOGLOBIN 14.1 G/DL (13.3-17.7); LYMPHOCYTES # (AUTO) 2.2 X 10^3 (1.0-4.0); LYMPHOCYTES % (AUTO) 17 % (12-44); MEAN CORPUSCULAR HEMOGLOBIN 30 PG (25-34); MEAN CORPUSCULAR HGB CONC 35 G/DL (32-36); MEAN CORPUSCULAR VOLUME 85 FL (80-99); MEAN PLATELET VOLUME 9.9 FL (7.4-10.4); MONOCYTES # (AUTO) 1.3 X 10^3 (0.0-1.0); MONOCYTES % (AUTO) 10 % (0-12); NEUTROPHILS % (AUTO) 71 % (42-75); PLATELET COUNT 192 10^3/uL (130-400); RED BLOOD COUNT 4.73 10^6/uL (4.35-5.85); RED CELL DISTRIBUTION WIDTH 13.4 % (10.0-14.5); WHITE BLOOD COUNT 12.6 10^3/uL (4.3-11.0)
[2018-04-22] MEDS: cefTRIAXone FOR IV USE 1,000 MG in NS (IVPB) 50 ML IV SCH (05:16)
[2018-04-22 05:30] LABS: BUN/CREATININE RATIO 13; CALCIUM 8.9 MG/DL (8.5-10.1); CARBON DIOXIDE 23 MMOL/L (21-32); CHLORIDE 110 MMOL/L (98-107); CREATININE SERUM 1.11 MG/DL (0.60-1.30); GFR ESTIMATED > 60; GLUCOSE 98 MG/DL (70-105); SODIUM 142 MMOL/L (135-145)
--- NOTE | 2018-04-22 06:02 | Diagnostic Imaging Report ---
PROCEDURE: CT abdomen and pelvis with contrast. TECHNIQUE: Multiple contiguous axial images were obtained through the abdomen and pelvis after administration of intravenous contrast. INDICATION: Nausea, emesis and left upper quadrant abdominal pain There is groundglass density seen in both lower lobes as well as the visualized lingula due to edema or pneumonitis. No focal hepatic or splenic lesion is identified. Spleen is at the upper limits of normal for size. There is no evidence of gallbladder, pancreatic or adrenal gland lesion. Kidneys are also unremarkable in appearance. There is no evidence of free fluid within the abdomen or pelvis. Partially opacified urinary bladder has a normal appearance. There is no evidence of localized inflammation or organized fluid collection within the abdomen or pelvis. No pathologic adenopathy is identified and there is no evidence of bowel obstruction. IMPRESSION: Edema and/or pneumonitis is seen in the visualized lung bases. Clinical correlation would be of use. Otherwise, there is no evidence of acute abnormality seen within the abdomen or pelvis. Dictated by: Dictated on workstation # [id number]
[2018-04-22] MEDS ORDERED: CATHETER FLUSH 10 ML SYR IV PRN (06:30)
--- NOTE | 2018-04-22 06:32 | Diagnostic Imaging Report ---
INDICATION: Nausea, emesis and cough. Single PA view of the chest is obtained. There is no previous study for comparison. FINDINGS: Heart size and pulmonary vascularity are within normal limits. There is groundglass density in the perihilar and basilar regions, greater on the left. No lobar consolidation is identified. There is no evidence of pneumothorax or significant pleural fluid. IMPRESSION: Probable edema and/or pneumonitis in the perihilar regions, greater on the left. Followup study could be performed to document resolution. Dictated by: Dictated on workstation # [id number]
--- NOTE | 2018-04-22 07:29 | Consultation ---
History of Present Illness History of Present Illness Patient Consulted On(etienne/time) 04/22/18 07:23 Date Seen by Provider: Apr 22, 2018 Time Seen by Provider: 06:42 History of Present Illness Consulted by Dr Jurado for N/V/D, abdominal pain. 33 year old male who had EGD and colonoscopy done 2 days ago c/o N/V/D, epigastric abd pain fever and chills since after his scopes. Pt states that he is having a productive cough, and notices some red in his emesis occasionally. Pt also c/o lower abdominal pain. Pt had CT abdomen done that was negative. Pt had CXR that showed edema/pneumonitis perihilar L>R. Pt denies CP, SOB. Patient laying in bed does answer some questions, but has forced speech to answer questions and limited response. Allergies and Home Medications Allergies Coded Allergies: Penicillins (Verified Allergy, Unknown, ANAPHYLAXIS, 04/15/18) diphenhydramine (Verified Allergy, Unknown, RASH, 04/15/18) ibuprofen (Verified Allergy, Unknown, RASH, 04/15/18) Home Medications Buspirone HCl 10 Mg Tablet, 10 MG PO BID, (Reported) Fluoxetine HCl 10 Mg Capsule, 30 MG PO DAILY, (Reported) TAKES 3 (10MG) CAPSULES Ondansetron 8 Mg Tab.rapdis, 8 MG SL Q8H PRN for NAUSEA/VOMITING-1ST LINE, ( Reported) Pantoprazole Sodium 40 Mg Tablet.dr, 40 MG PO DAILY, (Reported) Promethazine HCl 25 Mg Tablet, 25 MG PO Q6H PRN for NAUSEA/VOMITING-2ND LINE, ( Reported) Quetiapine Fumarate 100 Mg Tablet, 100 MG PO HS, (Reported) Sucralfate 1 Gm Tablet, 1 GM PO ACHS, (Reported) Terbinafine HCl 15 Gm Cream..g., TOP BID PRN for RASH, (Reported) Patient Home Medication List Home Medication List Reviewed: Yes Past Zpkmuzs-Pyiofs-Jlywio Hx Patient Social History Alcohol Use: Denies Use Recreational Drug Use: No Smoking Status: Never a Smoker Former Smoker, Quit: Apr 14, 2016 Recent Foreign Travel: No Contact w/Someone Who Travel: No Recent Infectious Disease Expo: No Recent Hopitalizations: No Physical Abuse Screen: No Sexual Abuse: No Immunizations Up To Date Tetanus Booster (TDap): Unknown Seasonal Allergies Seasonal Allergies: No Surgeries History of Surgeries: Yes (lump removed from tongue, egd, colonoscopy) Respiratory History of Respiratory Disorde: No Cardiovascular History of Cardiac Disorders: No Neurological History of Neurological Disord: No Reproductive System Sexually Transmitted Disease: No HIV/AIDS: No Genitourinary History of Genitourinary Disor: No Gastrointestinal History of Gastrointestinal Di: Yes (diarrhea, blood in stools, vomiting) Gastrointestinal Disorders: Gastroesophageal Reflux, Hiatal Hernia Musculoskeletal History of Musculoskeletal Dis: No Endocrine History of Endocrine Disorders: No HEENT History of HEENT Disorders: No Cancer History of Cancer: No Psychosocial History of Psychiatric Problem: Yes Behavioral Health Disorders: Sleep Difficulties, Anxiety, Bipolar, Depression Integumentary History of Skin or Integumenta: No Blood Transfusions History of Blood Disorders: No Adverse Reaction to a Blood Tr: No Family Medical History Significant Family History: No Pertinent Family Hx Family Medial History: Diabetes mellitus 17 FATHER Review of Systems-General Constitutional: chills, fever EENTM: no symptoms reported Respiratory: cough; No short of breath Gastrointestinal: abdominal pain (epigastric and lower abdomen), diarrhea, nausea, vomiting Musculoskeletal: no symptoms reported Skin: no symptoms reported Psychiatric/Neurological: No Symptoms Reported Physical Exam-General Problems Physical Exam Vital Signs Vital Signs - First Documented 04/21/18 04/22/18 22:35 03:30 Temp 100.9 Pulse 119 Resp 20 B/P (MAP) 120/96 (104) Pulse Ox 95 O2 Delivery Room Air FiO2 21 Capillary Refill : Less Than 3 SecondsLess Than 3 Seconds General Appearance: no apparent distress (laying in bed) Eyes: Bilateral Eye EOMI HEENT: PERRL/EOMI Neck: full range of motion, supple Respiratory: chest non-tender, no respiratory distress, no accessory muscle use Cardiovascular: regular rate, rhythm Gastrointestinal: soft, tenderness (minimal in epigastric and lower abdomen) Rectal: deferred Back: no CVA tenderness Extremities: normal range of motion 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, no motor/sensory deficits, alert, oriented x 3, other (forced speech) Skin: normal color Lymphatic: no adenopathy Data Review Labs Laboratory Tests 04/21/18 22:00: Lipase 15 04/21/18 22:50: Urine Color YELLOW, Urine Clarity CLEAR, Urine pH 5, Urine Specific [place] 1.025H, Urine Protein 2+H, Urine Glucose (UA) NEGATIVE, Urine Ketones 1+H, Urine Nitrite NEGATIVE, Urine Bilirubin NEGATIVE, Urine Urobilinogen 1, Urine Leukocyte Esterase 1+H, Urine RBC (Auto) NEGATIVE, Urine RBC 5-10H, Urine WBC 10 -25H, Urine Squamous Epithelial Cells 0-2, Urine Crystals NONE, Urine Bacteria FEWH, Urine Casts NONE, Urine Mucus LARGEH, Urine Culture Indicated NO 04/21/18 23:00: White Blood Count 15.4H, Red Blood Count 5.08, Hemoglobin 15.2, Hematocrit 43, Mean Corpuscular Volume 84, Mean Corpuscular Hemoglobin 30, Mean Corpuscular Hemoglobin Concent 36, Red Cell Distribution Width 13.3, Platelet Count 192, Mean Platelet Volume 10.1, Neutrophils (%) (Auto) 80H, Lymphocytes (%) (Auto) 10L, Monocytes (%) (Auto) 9, Eosinophils (%) (Auto) 1, Basophils (%) (Auto) 0, Neutrophils # (Auto) 12.3H, Lymphocytes # (Auto) 1.5, Monocytes # (Auto) 1.4H, Eosinophils # (Auto) 0.2, Basophils # (Auto) 0.0, Neutrophils % (Manual) 80, Lymphocytes % (Manual) 13, Monocytes % (Manual) 5, Eosinophils % (Manual) 1, Basophils % (Manual) 1, Band Neutrophils 0, Blood Morphology Comment NORMAL, Prothrombin Time 15.1H, INR Comment 1.2, Activated Partial Thromboplast Time 34 , Sodium Level 143, Potassium Level 3.9, Chloride Level 108H, Carbon Dioxide Level 24, Anion Gap 11, Blood Urea Nitrogen 19H, Creatinine 1.30, Estimat Glomerular Filtration Rate > 60, BUN/Creatinine Ratio 15, Glucose Level 137H, Lactic Acid Level 0.72, Calcium Level 9.4, Corrected Calcium 9.1, Total Bilirubin 0.7, Aspartate Amino Transf (AST/SGOT) 23, Alanine Aminotransferase ( ALT/SGPT) 35, Alkaline Phosphatase 74, Total Protein 7.4, Albumin 4.4, Monoscreen NEGATIVE 04/22/18 05:00: White Blood Count 12.6H, Red Blood Count 4.73, Hemoglobin 14.1, Hematocrit 40, Mean Corpuscular Volume 85, Mean Corpuscular Hemoglobin 30, Mean Corpuscular Hemoglobin Concent 35, Red Cell Distribution Width 13.4, Platelet Count 192, Mean Platelet Volume 9.9, Neutrophils (%) (Auto) 71, Lymphocytes (%) (Auto) 17, Monocytes (%) (Auto) 10, Eosinophils (%) (Auto) 1, Basophils (%) (Auto) 0, Neutrophils # (Auto) 9.0H, Lymphocytes # (Auto) 2.2, Monocytes # (Auto) 1.3H, Eosinophils # (Auto) 0.2, Basophils # (Auto) 0.0, Sodium Level 142, Potassium Level 4.0, Chloride Level 110H, Carbon Dioxide Level 23, Anion Gap 9, Blood Urea Nitrogen 14, Creatinine 1.11, Estimat Glomerular Filtration Rate > 60, BUN/ Creatinine Ratio 13, Glucose Level 98, Calcium Level 8.9 Microbiology 04/21/18 Influenza Types A,B Antigen (GARY) - Final, Complete Assessment/Plan Assessment/Plan Assessment/Plan Nausea and Vomiting Diarrhea Abdominal pain epigastric and lower abdomen UTI Pneumonitis Pt has elevated WBC at 12.6. CT abdomen/pelvis was negative. Chest x ray with pneumonitis Will continue IV abx No surgical intervention Do not see any complication from egd/colonoscopy Will follow. Physician Assessment Physician Assessment Scribed by Edy Coyne MS3 for Dr. Felix Clinical Quality Measures DVT/VTE Risk/Contraindication: RFS Level Per Nursing on Admit: 0=No Risk/No VTE PPX SUSHMA COYNE MEDICAL STUDENT Apr 22, 2018 07:29 AMELIA FELIX DO Apr 22, 2018 10:53
[2018-04-22] MEDS ORDERED: FLU QUADRIvalent (5+ YOA) 2018-2019 (AFLURIA) 0.5 ML IM ONE (07:30)
[2018-04-22] MEDS: RT-ALBUTEROL SULF 2.5 MG/3 ML PRE-MIX VIAL INH SCH ×4 (07:45→18:47)
[2018-04-22] MEDS ORDERED: FLUO10CA19 PO (08:37)
[2018-04-22] MEDS ORDERED: PROM25TA14 PO (08:37)
[2018-04-22] MEDS ORDERED: SUCR1TAB PO (08:37)
[2018-04-22] MEDS ORDERED: TERB15CR6 TOP (08:37)
[2018-04-22] MEDS ORDERED: PANT40TA3 PO (08:37)
--- NOTE | 2018-04-22 16:39 | History & Physicial ([facility]) ---
HPI History of Present Illness: 33 yo male presented to ER with vomiting x 2 days, fever and feeling very poorly not acting himself. His mother provides most of the history and states he has had trouble with vomiting for a year at least. He had EGD/colonoscopy 2 days ago with gastritis. He admits to cough, shortness of breath, vomiting, diarrhea. Source: family Date seen by provider: Apr 22, 2018 Time Seen by Provider: 11:40 Attending Physician Linwood Jurado MD PCP Dean Villalta Consult Date of Admission Apr 22, 2018 at 1:00 am Home Medications Home Medications Reviewed patient Home Medication Reconciliation performed by pharmacy medication reconciliations body shop technician and/or nursing. Patients Allergies have been reviewed. Allergies Coded Allergies: Penicillins (Verified Allergy, Unknown, ANAPHYLAXIS, 04/15/18) diphenhydramine (Verified Allergy, Unknown, RASH, 04/15/18) ibuprofen (Verified Allergy, Unknown, RASH, 04/15/18) [id number] Hx Patient Social History Alcohol Use: Denies Use Recreational Drug Use: No Smoking Status: Never a Smoker Recent Foreign Travel: No Contact w/other who traveled: No Recent Hopitalizations: No Recent Infectious Disease Expo: No Physical Abuse Screen: No Sexual Abuse: No Immunizations Up To Date Tetanus Booster (TDap): Unknown Past Medical History PMHx: Anxiety Bipolar disorder PSurgHx: Tongue lesion removal as a child Family Medical History Significant Family History: Diabetes Family History: Diabetes mellitus 19 FATHER Review of Systems ([facility]) Constitutional: chills, fever, malaise EENTM: No nose congestion Respiratory: cough, short of breath Cardiovascular: No chest pain Gastrointestinal: see HPI Genitourinary: no symptoms reported Musculoskeletal: muscle pain Skin: no symptoms reported Psychiatric/Neurological: Anxiety Reviewed Test Results Reviewed Test Results Lab Laboratory Tests Test 04/21/18 22:00 04/21/18 22:50 04/21/18 23:00 04/22/18 05:00 Range/Units Lipase 15 8-78 U/L Urine Color YELLOW Urine Clarity CLEAR Urine pH 5 5-9 Urine Specific [place] 1.025 H 1.016-1.022 Urine Protein 2+ H NEGATIVE Urine Glucose (UA) NEGATIVE NEGATIVE Urine Ketones 1+ H NEGATIVE Urine Nitrite NEGATIVE NEGATIVE Urine Bilirubin NEGATIVE NEGATIVE Urine Urobilinogen 1 NORMAL MG/DL Urine Leukocyte Esterase 1+ H NEGATIVE Urine RBC (Auto) NEGATIVE NEGATIVE Urine RBC 5-10 H /HPF Urine WBC 10-25 H /HPF Urine Squamous Epithelial Cells 0-2 /HPF Urine Crystals NONE /LPF Urine Bacteria FEW H /HPF Urine Casts NONE /LPF Urine Mucus LARGE H /LPF Urine Culture Indicated NO White Blood Count 15.4 H 12.6 H 4.3-11.0 10^3/uL Red Blood Count 5.08 4.73 4.35-5.85 10^6/uL Hemoglobin 15.2 14.1 13.3-17.7 G/DL Hematocrit 43 40 40-54 % Mean Corpuscular Volume 84 85 80-99 FL Mean Corpuscular Hemoglobin 30 30 25-34 PG Mean Corpuscular Hemoglobin Concent 36 35 32-36 G/DL Red Cell Distribution Width 13.3 13.4 10.0-14.5 % Platelet Count 192 192 130-400 10^3/uL Mean Platelet Volume 10.1 9.9 7.4-10.4 FL Neutrophils (%) (Auto) 80 H 71 42-75 % Lymphocytes (%) (Auto) 10 L 17 12-44 % Monocytes (%) (Auto) 9 10 0-12 % Eosinophils (%) (Auto) 1 1 0-10 % Basophils (%) (Auto) 0 0 0-10 % Neutrophils # (Auto) 12.3 H 9.0 H 1.8-7.8 X 10^3 Lymphocytes # (Auto) 1.5 2.2 1.0-4.0 X 10^3 Monocytes # (Auto) 1.4 H 1.3 H 0.0-1.0 X 10^3 Eosinophils # (Auto) 0.2 0.2 0.0-0.3 10^3/uL Basophils # (Auto) 0.0 0.0 0.0-0.1 10^3/uL Neutrophils % (Manual) 80 % Lymphocytes % (Manual) 13 % Monocytes % (Manual) 5 % Eosinophils % (Manual) 1 % Basophils % (Manual) 1 % Band Neutrophils 0 % Blood Morphology Comment NORMAL Prothrombin Time 15.1 H 12.2-14.7 SEC INR Comment 1.2 0.8-1.4 Activated Partial Thromboplast Time 34 24-35 SEC Sodium Level 143 142 135-145 MMOL/L Potassium Level 3.9 4.0 3.6-5.0 MMOL/L Chloride Level 108 H 110 H 98-107 MMOL/L Carbon Dioxide Level 24 23 21-32 MMOL/L Anion Gap 11 9 5-14 MMOL/L Blood Urea Nitrogen 19 H 14 7-18 MG/DL Creatinine 1.30 1.11 0.60-1.30 MG/DL Estimat Glomerular Filtration Rate > 60 > 60 BUN/Creatinine Ratio 15 13 Glucose Level 137 H 98 70-105 MG/DL Lactic Acid Level 0.72 0.50-2.00 MMOL/L Calcium Level 9.4 8.9 8.5-10.1 MG/DL Corrected Calcium 9.1 8.5-10.1 MG/DL Total Bilirubin 0.7 0.1-1.0 MG/DL Aspartate Amino Transf (AST/SGOT) 23 5-34 U/L Alanine Aminotransferase (ALT/SGPT) 35 0-55 U/L Alkaline Phosphatase 74 40-136 U/L Total Protein 7.4 6.4-8.2 GM/DL Albumin 4.4 3.2-4.5 GM/DL Monoscreen NEGATIVE NEGATIVE Radiology CXR IMPRESSION: Probable edema and/or pneumonitis in the perihilar regions, greater on the left. Followup study could be performed to document resolution. CT abd/pelvis: IMPRESSION: Edema and/or pneumonitis is seen in the visualized lung bases. Clinical correlation would be of use. Otherwise, there is no evidence of acute abnormality seen within the abdomen or pelvis. Physical Exam-([facility]) Physical Exam Vital Signs VS - Last 72 Hours, by Label 04/21/18 04/21/18 04/21/18 04/22/18 22:35 23:04 23:21 01:51 Temp 100.9 100.9 100.9 98.2 Pulse 119 105 Resp 20 18 B/P (MAP) 120/96 (104) 117/77 (90) Pulse Ox 95 97 O2 Delivery Room Air Room Air 04/22/18 04/22/18 04/22/18 04/22/18 02:10 02:10 03:30 04:44 Temp 98.6 98.7 Pulse 100 105 84 Resp 19 18 B/P (MAP) 132/76 (94) 127/65 (85) Pulse Ox 94 97 94 O2 Delivery Room Air Room Air Room Air FiO2 21 04/22/18 04/22/18 04/22/18 04/22/18 07:50 08:00 09:00 11:10 Temp 99.2 Pulse 91 Resp 22 B/P (MAP) 130/74 (92) Pulse Ox 94 92 95 O2 Delivery Room Air Room Air Room Air Room Air 04/22/18 04/22/18 12:00 14:43 Temp 99.1 Pulse 103 Resp 24 B/P (MAP) 134/80 (98) Pulse Ox 96 96 O2 Delivery Room Air Room Air Capillary Refill : Less Than 3 SecondsLess Than 3 Seconds General Appearance: WD/WN, other (moaning, barely opens eyes or speaks) Respiratory: lungs clear, normal breath sounds, no respiratory distress Cardiovascular: regular rate, rhythm, no murmur Gastrointestinal: normal bowel sounds, soft, tenderness (diffuse) Neurologic/Psychiatric: other (flat affect, answers questions when prodded, but otherwise defers to mother) Skin: normal color, warm/dry Assessment/Plan Assessment/Plan Admission Status: Inpatient Order (span 2 midnights) Reason for Inpatient Admission: Sepsis with nausea and vomiting unable to tolerate oral antibiotics. (1) Sepsis Status: Acute Assessment & Plan: Possibly secondary to pneumonia- febrile with leukocytosis and suspected pneumonia. No hypotension, lactic acidosis or end organ dysfunction. Treatment as below for pneumonia. Qualifiers: Qualified Codes: A41.9 - Sepsis, unspecified organism (2) Pneumonia Status: Acute Assessment & Plan: Ceftriaxone and azithromycin. Blood cultures pending. Sputum culture pending. Influenza neg. No hypoxia. RT protocol. Qualifiers: Qualified Codes: J18.1 - Lobar pneumonia, unspecified organism (3) Nausea and vomiting Status: Chronic Assessment & Plan: Acute on chronic, supportive care with promethazine, ondansetron. Clear liquid diet, advance as tolerated. (4) Hematuria Status: Acute Assessment & Plan: Urine culture pending. CT abdomen/pelvis unremarkable. (5) Abdominal pain Status: Acute Assessment & Plan: CT unremarkable. Recent EGD/colo, Surgery consulted, appreciate recommendations. (6) Bipolar disorder Status: Chronic Assessment & Plan: Resume home medications. (7) Anxiety Status: Chronic Assessment & Plan: Resume home medications. (8) DVT prophylaxis Status: Acute Assessment & Plan[facility] Clinical Quality Measures DVT/VTE Risk/Contraindication: RFS Level Per Nursing on Admit: 0=No Risk/No VTE PPX LINWOOD JURADO MD Apr 22, 2018 4:39 pm
[2018-04-22] MEDS: busPIRone 10 MG (BUSPAR) TAB PO SCH (20:31)
[2018-04-22] MEDS: SUCRALFATE 1 GM (CARAFATE) TAB PO SCH (20:31)
[2018-04-22] MEDS ORDERED: AZITHROMYCIN 250 MG TAB (ZITHROMAX) PO SCH (21:00)
[2018-04-22] MEDS ORDERED: QUEtiapine 100 MG (SEROquel) TAB IMMEDIATE RELEASE PO SCH (21:00)
[2018-04-23 00:17] VITALS: BP 115/70
[2018-04-23] MEDS: 1/2 NS W/KCL 20 MEQ/L 1,000 ML IV SCH ×2 (03:21→09:50)
[2018-04-23 04:18] VITALS: BP 113/72
[2018-04-23] MEDS: SUCRALFATE 1 GM (CARAFATE) TAB PO SCH ×2 (05:47→11:25)
[2018-04-23] MEDS: cefTRIAXone FOR IV USE 1,000 MG in NS (IVPB) 50 ML IV SCH (05:47)
[2018-04-23 05:59] LABS: HEMOGLOBIN 13.3 G/DL (13.3-17.7); MEAN PLATELET VOLUME 9.7 FL (7.4-10.4); RED BLOOD COUNT 4.52 10^6/uL (4.35-5.85); RED CELL DISTRIBUTION WIDTH 13.6 % (10.0-14.5); WHITE BLOOD COUNT 10.7 10^3/uL (4.3-11.0)
[2018-04-23] MEDS: RT-ALBUTEROL SULF 2.5 MG/3 ML PRE-MIX VIAL INH SCH ×2 (06:09→10:22)
[2018-04-23 06:22] LABS: BUN/CREATININE RATIO 6; CARBON DIOXIDE 23 MMOL/L (21-32); CHLORIDE 110 MMOL/L (98-107); CREATININE SERUM 1.08 MG/DL (0.60-1.30); GFR ESTIMATED > 60; GLUCOSE 92 MG/DL (70-105); POTASSIUM 4.6 MMOL/L (3.6-5.0); SODIUM 142 MMOL/L (135-145)
[2018-04-23 08:00] VITALS: BP 117/77
[2018-04-23] MEDS ORDERED: PANTOPRAZOLE 40 MG (PROTONIX) TAB PO SCH (09:00)
[2018-04-23] MEDS ORDERED: FLUoxetine HCL 10 MG (PROzac) CAPSULE/TABLET PO SCH (09:00)
--- NOTE | 2018-04-23 09:25 | Progress Note ---
Subjective Date Seen by a Provider: Apr 23, 2018 Time Seen by a Provider: 09:22 Subjective/Events-last exam Patient states that still having abdominal pain like he had before. Patient has not had fever overnight. wbc down in normal range. No new issues. Denies n/v fever sweats chills shortness of breath or chest pain. No family in room. Focused Exam Lactate Level 04/21/18 23:00: Lactic Acid Level 0.72 Objective Exam Vital Signs Date Time Temp Pulse Resp B/P (MAP) Pulse Ox O2 Delivery O2 Flow Rate FiO2 04/23/18 08:00 99.1 87 16 117/77 (90) 93 Room Air 04/23/18 06:11 93 Room Air 04/23/18 04:18 98.0 75 22 113/72 (86) 91 Room Air 04/23/18 00:17 97.6 86 24 115/70 (85) 93 Room Air 04/22/18 20:10 98.9 104 24 129/70 (89) 95 Room Air 04/22/18 19:50 Room Air 04/22/18 18:47 93 Room Air 04/22/18 16:45 98.5 85 24 114/70 (85) 94 Room Air 04/22/18 14:43 96 Room Air 04/22/18 12:00 99.1 103 24 134/80 (98) 96 Room Air 04/22/18 11:10 95 Room Air I & O 04/23/18 07:00 Intake Total 3845 ml Output Total 3450 ml Balance 395 ml Capillary Refill : Less Than 3 SecondsLess Than 3 Seconds General Appearance: No Apparent Distress HEENT: PERRL/EOMI Neck: Supple Respiratory: Chest Non Tender, No Accessory Muscle Use, No Respiratory Distress Cardiovascular: Regular Rate, Rhythm Peripheral Pulses: 2+ Radial Pulses (R), 2+ Radial Pulses (L) Gastrointestinal: normal bowel sounds, soft, tenderness (minimal varies location and doesn't seem to have significant pain when distracted.) Neurologic/Psychiatric: Alert, Oriented x3, No Motor/Sensory Deficits, Normal 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, 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 Skin: Normal Color, Warm/Dry Lymphatic: No Adenopathy Results Lab Laboratory Tests 04/23/18 05:40: White Blood Count 10.7, Red Blood Count 4.52, Hemoglobin 13.3, Hematocrit 39L, Mean Corpuscular Volume 86, Mean Corpuscular Hemoglobin 29, Mean Corpuscular Hemoglobin Concent 34, Red Cell Distribution Width 13.6, Platelet Count 172, Mean Platelet Volume 9.7, Sodium Level 142, Potassium Level 4.6, Chloride Level 110H, Carbon Dioxide Level 23, Anion Gap 9, Blood Urea Nitrogen 7, Creatinine 1.08, Estimat Glomerular Filtration Rate > 60, BUN/Creatinine Ratio 6, Glucose Level 92, Calcium Level 9.0 Microbiology 04/21/18 Blood Culture - Preliminary, Resulted No growth 04/21/18 Influenza Types A,B Antigen (GARY) - Final, Complete 04/21/18 Urine Culture - Preliminary, Resulted Culture In Progress Assessment/Plan Assessment/Plan Assessment/Plan Nausea and Vomiting Diarrhea Abdominal pain epigastric and lower abdomen UTI Pneumonitis Pt had elevated WBC now in normal range. CT abdomen/pelvis was negative. Chest x ray with pneumonitis Will continue IV abx No surgical intervention Do not see any complication from egd/colonoscopy Will follow. Clinical Quality Measures DVT/VTE Risk/Contraindication: RFS Level Per Nursing on Admit: 0=No Risk/No VTE PPX AMELIA FELIX DO Apr 23, 2018 09:25
[2018-04-23] MEDS: busPIRone 10 MG (BUSPAR) TAB PO SCH (09:47)
[2018-04-23] MEDS ORDERED: CEFD300C3 PO (11:32)
--- NOTE | 2018-04-23 11:33 | Discharge Instructions ---
Discharge [facility] Discharge Medications New, Converted or Re-Newed RX: Transmitted to Pharmacy New Medications: Cefdinir (Cefdinir) 300 Mg Capsule 300 MG PO BID, #12 CAP 0 Refills Continued Medications: Buspirone HCl (Buspirone HCl) 10 Mg Tablet 10 MG PO BID, TAB Fluoxetine HCl (Fluoxetine HCl) 10 Mg Capsule 30 MG PO DAILY, CAP TAKES 3 (10MG) CAPSULES Ondansetron (Ondansetron Odt) 8 Mg Tab.rapdis 8 MG SL Q8H PRN for NAUSEA/VOMITING-1ST LINE, TAB Pantoprazole Sodium (Pantoprazole Sodium) 40 Mg Tablet.dr 40 MG PO DAILY, TAB Promethazine HCl (Promethazine Tablet) 25 Mg Tablet 25 MG PO Q6H PRN for NAUSEA/VOMITING-2ND LINE, TAB Quetiapine Fumarate (Quetiapine Fumarate) 100 Mg Tablet 100 MG PO HS, TAB Sucralfate (Sucralfate) 1 Gm Tablet 1 GM PO ACHS, TAB Terbinafine HCl (Terbinafine) 15 Gm Cream..g. TOP BID PRN for RASH, EA Patient Instructions Goal/Follow Up Appt: Follow up with Salvador Villalta on 04/28 at 2:40 pm. Activity & Diet Discharge Diet: No Restrictions (start with liquid diet, advance to bland and then advance as tolerated) Activity as Tolerated: Yes Copy Copies To 1: RUBEN Bernardo BETHANY N MD Apr 23, 2018 11:33 am
--- NOTE | 2018-04-23 11:36 | Discharge Summary ---
Diagnosis/Chief Complaint Date of Admission Apr 22, 2018 at 1:00 am Date of Discharge Apr 23, 2018 Admission Diagnosis Admission Diagnosis (1) Sepsis Status: Acute Qualifiers: Qualified Codes: A41.9 - Sepsis, unspecified organism (2) Pneumonia Status: Acute Qualifiers: Qualified Codes: J18.1 - Lobar pneumonia, unspecified organism (3) Nausea and vomiting Status: Chronic (4) Hematuria Status: Acute (5) Abdominal pain Status: Acute (6) Bipolar disorder Status: Chronic (7) Anxiety Status: Chronic Discharge Diagnosis (1) Sepsis Status: Acute Assessment & Plan: Possibly secondary to pneumonia- febrile with leukocytosis and suspected pneumonia. No hypotension, lactic acidosis or end organ dysfunction. Treatment as below for pneumonia. RESOLVED (2) Pneumonia Status: Acute Assessment & Plan: Ceftriaxone and azithromycin. Blood cultures pending. Sputum culture pending. Influenza neg. No hypoxia. RT protocol. Discharged with cefdinir x 6 more days. (3) Nausea and vomiting Status: Chronic Assessment & Plan: Acute on chronic, supportive care with promethazine, ondansetron. Clear liquid diet, advance as tolerated. Tolerated liquids inpatient. (4) Hematuria Status: Acute Assessment & Plan: Urine culture pending. CT abdomen/pelvis unremarkable. (5) Abdominal pain Status: Acute Assessment & Plan: CT unremarkable. Recent EGD/colo, Surgery consulted, no acute issues. (6) Bipolar disorder Status: Chronic Assessment & Plan: Resumed home medications. (7) Anxiety Status: Chronic Assessment & Plan: Resumed home medications. Chief Complaint/HPI Chief Complaint/HPI 33 yo male presented to ER with vomiting x 2 days, fever and feeling very poorly not acting himself. His mother provides most of the history and states he has had trouble with vomiting for a year at least. He had EGD/colonoscopy 2 days ago with gastritis. He admits to cough, shortness of breath, vomiting, diarrhea. Discharge Summary-Simple/Stand Consultations Discharge Physical Examination Allergies: Coded Allergies: Penicillins (Verified Allergy, Unknown, ANAPHYLAXIS, 04/15/18) diphenhydramine (Verified Allergy, Unknown, RASH, 04/15/18) ibuprofen (Verified Allergy, Unknown, RASH, 04/15/18) Vitals & I&Os Vital Sign - Last 12Hours Date Time Temp Pulse Resp B/P (MAP) Pulse Ox O2 Delivery O2 Flow Rate FiO2 04/23/18 10:40 92 Room Air 04/23/18 08:00 99.1 87 16 117/77 (90) 04/22/18 03:30 21 Intake and Output 04/23/18 00:00 Intake Total 2530 ml Output Total 2700 ml Balance -170 ml General Appearance: Alert, No Acute Distress Respiratory: Clear to Auscultation, Normal Air Movement Cardiovascular: Regular Rate, No Murmurs Abdominal: Normal Bowel Sounds, Soft, Other (mild diffuse tenderness) Neuro: Normal Speech Psych/Mental Status: Mental Status NL Hospital Course See final discharge diagnosis. Labs Laboratory Tests Test 04/21/18 22:00 04/21/18 22:50 04/21/18 23:00 04/22/18 05:00 Range/Units Lipase 15 8-78 U/L Urine Color YELLOW Urine Clarity CLEAR Urine pH 5 5-9 Urine Specific [place] 1.025 H 1.016-1.022 Urine Protein 2+ H NEGATIVE Urine Glucose (UA) NEGATIVE NEGATIVE Urine Ketones 1+ H NEGATIVE Urine Nitrite NEGATIVE NEGATIVE Urine Bilirubin NEGATIVE NEGATIVE Urine Urobilinogen 1 NORMAL MG/DL Urine Leukocyte Esterase 1+ H NEGATIVE Urine RBC (Auto) NEGATIVE NEGATIVE Urine RBC 5-10 H /HPF Urine WBC 10-25 H /HPF Urine Squamous Epithelial Cells 0-2 /HPF Urine Crystals NONE /LPF Urine Bacteria FEW H /HPF Urine Casts NONE /LPF Urine Mucus LARGE H /LPF Urine Culture Indicated NO White Blood Count 15.4 H 12.6 H 4.3-11.0 10^3/uL Red Blood Count 5.08 4.73 4.35-5.85 10^6/uL Hemoglobin 15.2 14.1 13.3-17.7 G/DL Hematocrit 43 40 40-54 % Mean Corpuscular Volume 84 85 80-99 FL Mean Corpuscular Hemoglobin 30 30 25-34 PG Mean Corpuscular Hemoglobin Concent 36 35 32-36 G/DL Red Cell Distribution Width 13.3 13.4 10.0-14.5 % Platelet Count 192 192 130-400 10^3/uL Mean Platelet Volume 10.1 9.9 7.4-10.4 FL Neutrophils (%) (Auto) 80 H 71 42-75 % Lymphocytes (%) (Auto) 10 L 17 12-44 % Monocytes (%) (Auto) 9 10 0-12 % Eosinophils (%) (Auto) 1 1 0-10 % Basophils (%) (Auto) 0 0 0-10 % Neutrophils # (Auto) 12.3 H 9.0 H 1.8-7.8 X 10^3 Lymphocytes # (Auto) 1.5 2.2 1.0-4.0 X 10^3 Monocytes # (Auto) 1.4 H 1.3 H 0.0-1.0 X 10^3 Eosinophils # (Auto) 0.2 0.2 0.0-0.3 10^3/uL Basophils # (Auto) 0.0 0.0 0.0-0.1 10^3/uL Neutrophils % (Manual) 80 % Lymphocytes % (Manual) 13 % Monocytes % (Manual) 5 % Eosinophils % (Manual) 1 % Basophils % (Manual) 1 % Band Neutrophils 0 % Blood Morphology Comment NORMAL Prothrombin Time 15.1 H 12.2-14.7 SEC INR Comment 1.2 0.8-1.4 Activated Partial Thromboplast Time 34 24-35 SEC Sodium Level 143 142 135-145 MMOL/L Potassium Level 3.9 4.0 3.6-5.0 MMOL/L Chloride Level 108 H 110 H 98-107 MMOL/L Carbon Dioxide Level 24 23 21-32 MMOL/L Anion Gap 11 9 5-14 MMOL/L Blood Urea Nitrogen 19 H 14 7-18 MG/DL Creatinine 1.30 1.11 0.60-1.30 MG/DL Estimat Glomerular Filtration Rate > 60 > 60 BUN/Creatinine Ratio 15 13 Glucose Level 137 H 98 70-105 MG/DL Lactic Acid Level 0.72 0.50-2.00 MMOL/L Calcium Level 9.4 8.9 8.5-10.1 MG/DL Corrected Calcium 9.1 8.5-10.1 MG/DL Total Bilirubin 0.7 0.1-1.0 MG/DL Aspartate Amino Transf (AST/SGOT) 23 5-34 U/L Alanine Aminotransferase (ALT/SGPT) 35 0-55 U/L Alkaline Phosphatase 74 40-136 U/L Total Protein 7.4 6.4-8.2 GM/DL Albumin 4.4 3.2-4.5 GM/DL Monoscreen NEGATIVE NEGATIVE Test 04/23/18 05:40 Range/Units White Blood Count 10.7 4.3-11.0 10^3/uL Red Blood Count 4.52 4.35-5.85 10^6/uL Hemoglobin 13.3 13.3-17.7 G/DL Hematocrit 39 L 40-54 % Mean Corpuscular Volume 86 80-99 FL Mean Corpuscular Hemoglobin 29 25-34 PG Mean Corpuscular Hemoglobin Concent 34 32-36 G/DL Red Cell Distribution Width 13.6 10.0-14.5 % Platelet Count 172 130-400 10^3/uL Mean Platelet Volume 9.7 7.4-10.4 FL Sodium Level 142 135-145 MMOL/L Potassium Level 4.6 3.6-5.0 MMOL/L Chloride Level 110 H 98-107 MMOL/L Carbon Dioxide Level 23 21-32 MMOL/L Anion Gap 9 5-14 MMOL/L Blood Urea Nitrogen 7 7-18 MG/DL Creatinine 1.08 0.60-1.30 MG/DL Estimat Glomerular Filtration Rate > 60 BUN/Creatinine Ratio 6 Glucose Level 92 70-105 MG/DL Calcium Level 9.0 8.5-10.1 MG/DL Radiology Reviewed CXR IMPRESSION: Probable edema and/or pneumonitis in the perihilar regions, greater on the left. Followup study could be performed to document resolution. CT abd/pelvis: IMPRESSION: Edema and/or pneumonitis is seen in the visualized lung bases. Clinical correlation would be of use. Otherwise, there is no evidence of acute abnormality seen within the abdomen or pelvis. Discharge Instructions to patient/family Please see electronic discharge instructions given to patient. Discharge Medications Reviewed and agree with Discharge Medication list on patient's Discharge Instruction sheet Clinical Quality Measures DVT/VTE Risk/Contraindication: RFS Level Per Nursing on Admit: 0=No Risk/No VTE PPX Copy Copies To 1: RUBEN Bernardo BETHANY N MD Apr 23, 2018 11:36 am
[2018-04-23 12:00] VITALS: BP 118/71
[2018-04-23 14:00] VITALS: BP 118/71
== END 2018-04-23 14:05 | disposition home or self-care (01) | DRG 871 ==
LOC: ER 22:23 → EDUNIT# 22:23 → 4TH 04-22 01:00
PROVIDERS: ADMIT Family Medicine; ATTEND Family Medicine
DX: A41.9 Sepsis, unspecified organism (principal); J18.9 Pneumonia, unspecified organism; N39.0 Urinary tract infection, site not specified; R11.2 Nausea with vomiting, unspecified; R19.7 Diarrhea, unspecified; R31.9 Hematuria, unspecified; K21.9 Gastro-esophageal reflux disease without esophagitis; K44.9 Diaphragmatic hernia without obstruction or gangrene; K29.70 Gastritis, unspecified, without bleeding; F41.9 Anxiety disorder, unspecified; F31.9 Bipolar disorder, unspecified; Z87.891 Personal history of nicotine dependence
CPT/HCPCS: 36415; 71045; 74177; 80048; 80053; 81000; 83605; 83690; 85007; 85025; 85027; 85610; 85730; 86308; 87040; 87088; 87804; 94640; 94760; 96361; 96365; 96367; 96375; 96376

== ENCOUNTER 2018-06-08 20:40 | Observation (INO) | payer MEDICAID ==
[~2018-06-08] VITALS: Ht 175.3 cm; Wt 76.7 kg
[~2018-06-08 20:40] MED LIST changes: +CEFD300C3 PO; +FLUO10CA19 PO; +ONDA8TAB13 SL; +PANT40TA3 PO; +PROM25TA14 PO; +SUCR1TAB PO; +TERB15CR6 TOP
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
--- OUTSIDE RECORDS SUMMARY | 2018-06-08 20:46 | XMS REPORT | Continuity of Care Document ---
Author Author [facility] Address Unknown Phone Unavailable Allergies Active Description Code Type Severity Reaction Onset Reported/Identified Relationship to Patient Clinical Status Yes BENADRYL UNKNOWN UNKNOWN Yes IBUPROFEN UNKNOWN UNKNOWN Yes PENICILLINS MODERATE OTHER Yes Benadryl Drug Allergy N/A N/A 08/11/2013 Yes ibuprofen Drug Allergy N/A N/A 08/11/2013 Yes Penicillins Drug Allergy N/A N/A 08/11/2013 Yes No Allergy Information Available [id number] Drug Allergy Unknown N/A 2017 Yes diphenhydramine [id number] Drug Allergy Unknown RASH 04/15/2018 Yes ibuprofen [id number] Drug Allergy Unknown RASH 04/15/2018 Yes Penicillins [id number] Drug Allergy Unknown ANAPHYLAXIS 04/15/2018 Medications Medication [...] MIRANDA K29.00 ACUTE GASTRITIS WITHOUT BLEEDING 03/12/2018 Howayek, Anthony A 535.00 ACUTE GASTRITIS, WITHOUT MENTION OF HEMORRHAGE 03/12/2018 Anthony Mendoza A K29.00 ACUTE GASTRITIS WITHOUT BLEEDING 04/14/2018 AMELIA FELIX DO Ot Z01.818 ENCOUNTER FOR OTHER PREPROCEDURAL EXAMIN 04/14/2018 SHAHBAZ CROWDER Ot K92.0 HEMATEMESIS 04/14/2018 SHAHBAZ CROWDER Ot K92.1 MELENA 04/14/2018 SHAHBAZ RCOWDER Ot R19.7 DIARRHEA, UNSPECIFIED 04/15/2018 AMELIA FELIX DO Ot Z01.818 ENCOUNTER FOR OTHER PREPROCEDURAL EXAMIN 04/15/2018 AMELIA FELIX DO, Ot Z01.818 ENCOUNTER FOR OTHER PREPROCEDURAL EXAMIN 04/20/2018 SHAHBAZ CROWDER Ot K92.0 HEMATEMESIS 04/20/2018 SHAHBAZ CROWDER Ot K92.1 MELENA 04/20/2018 SHAHBAZ CROWDER Ot R19.7 DIARRHEA, UNSPECIFIED 04/20/2018 AMELIA FELIX DO Ot F17.210 NICOTINE DEPENDENCE, CIGARETTES, UNCOMPL 04/20/2018 AMELIA FELIX DO Ot K21.0 GASTRO-ESOPHAGEAL REFLUX DISEASE WITH ES 04/20/2018 AMELIA FELIX DO Ot K44.9 DIAPHRAGMATIC HERNIA WITHOUT OBSTRUCTION 04/20/2018 AMELIA FELIX DO Ot K92.1 MELENA 04/20/2018 AMELIA FELIX DO Ot R19.7 DIARRHEA, UNSPECIFIED 04/22/2018 SHAHBAZ CROWDER Ot K92.0 HEMATEMESIS 04/22/2018 SHAHBAZ CROWDER Ot K92.1 MELENA 04/22/2018 SHAHBAZ CROWDER Ot R19.7 DIARRHEA, UNSPECIFIED 04/23/2018 LINWOOD LOCKWOOD MD Ot A41.9 SEPSIS, UNSPECIFIED ORGANISM 04/23/2018 LINWOOD LOCKWOOD MD Ot F31.9 BIPOLAR DISORDER, UNSPECIFIED 04/23/2018 LINWOOD LOCKWOOD MD Ot F41.9 ANXIETY DISORDER, UNSPECIFIED 04/23/2018 LINWOOD LOCKWOOD MD Ot J18.9 PNEUMONIA, UNSPECIFIED ORGANISM 04/23/2018 LINWOOD LOCKWOOD MD Ot K21.9 GASTRO-ESOPHAGEAL REFLUX DISEASE WITHOUT 04/23/2018 LINWOOD LOCKWOOD MD Ot K29.70 GASTRITIS, UNSPECIFIED, WITHOUT BLEEDING 04/23/2018 LINWOOD LOCKWOOD MD Ot K44.9 DIAPHRAGMATIC HERNIA WITHOUT OBSTRUCTION 04/23/2018 LINWOOD LOCKWOOD MD Ot N39.0 URINARY TRACT INFECTION, SITE NOT SPECIF 04/23/2018 LINWOOD LOCKWOOD MD Ot R11.2 NAUSEA WITH VOMITING, UNSPECIFIED 04/23/2018 LINWOOD LOCKWOOD MD Ot R19.7 DIARRHEA, UNSPECIFIED 04/23/2018 LINWOOD LOCKWOOD MD Ot R31.9 HEMATURIA, UNSPECIFIED 04/23/2018 LINWOOD LOCKWOOD MD, Ot Z87.891 PERSONAL HISTORY OF NICOTINE DEPENDENCE 04/30/2018 AMELIA FELIX DO Ot F17.210 NICOTINE DEPENDENCE, CIGARETTES, UNCOMPL 04/30/2018 AMELIA FELIX DO Ot K21.0 GASTRO-ESOPHAGEAL REFLUX DISEASE WITH ES 04/30/2018 AMELIA FELIX DO Ot K44.9 DIAPHRAGMATIC HERNIA WITHOUT OBSTRUCTION 04/30/2018 AMELIA FELIX DO Ot K92.1 MELENA 04/30/2018 AMELIA FELIX DO Ot R19.7 DIARRHEA, UNSPECIFIED Procedures Code [place] [address] INFLUENZA A & B (IN-HOUSE) 08/11/2013 56188 ROUTINE VENIPUNCTURE 08/16/2014 08661 URINE DRUG SCREEN (IN-HOUSE ) 08/16/2014 00057 TSH 08/16/2014 73882 A1C (IN-HOUSE) 08/16/2014 Results Test Result Range Amylase - 01/25/17 20:56 Amylase 56 U/L 20-100 CMP - 07/17/17 09:49 GLUCOSE 64 mg/dL 65-99 UREA NITROGEN (BUN) 18 mg/dL 7-25 CREATININE 1.06 mg/dL 0.60-1.35 eGFR NON-AFR. SPANISH 91 mL/min/1.73m2 > OR=60 eGFR 106 mL/min/1.73m2 [...] 5-8.5 Urine-Protein Negative Negative Urine-RBC 0-2/HPF Urine-Specific Shipman >=1.030 1.000-1.030 Urine-WBC 2-5/HPF Urobilinogen 0.2 0.2-1.0 [...] urinalysis with reflex to culture NO NRG Bacterial urine culture - 04/21/18 22:50 Bacterial urine culture [id number] NRG COLONY COUNT . NRG FTX;REPORTABLE 10,000 CFU/ML NRG FREE TEXT ENTRY 2 NO SUSCEPTIBILITY PERFORMED NRG FREE TEXT ENTRY 3 FINAL REPORT 04-23-2018, 1205. NRG Complete blood count (CBC) with automated [...] NRG Manual blood basophils/100 leukocytes 1 % NRG Blood erythrocyte morphology finding identification [facility] Serum heterophile antibody titer - 04/21/18 23:00 [...] INFLUENZA A AND B ANTIGENS BY IA [facility] Comprehensive metabolic panel - 04/21/18 23:00 Serum [...] or plasma urea nitrogen/creatinine mass ratio 15 NRG Serum or plasma creatinine measurement with calculation of estimated glomerular filtration rate > NRG Serum or plasma glucose measurement (mass/volume) 137 [...] g/dL 3.2-4.5 CALCIUM CORRECTED 9.1 mg/dL 8.5-10.1 Bacterial blood culture - 04/21/18 23:00 Bacterial blood culture NG NRG Bacterial blood culture - 04/21/18 23:15 Bacterial blood culture NG NRG Complete blood count (CBC) with automated white blood cell (WBC) differential - 04/22/18 05:00 Blood leukocytes automated count (number/volume) 12.6 10*3/uL 4.3-11.0 Blood erythrocytes automated count (number/volume) 4.73 10*6/uL 4.35-5.85 Venous blood hemoglobin measurement (mass/volume) 14.1 g/dL 13.3-17.7 Blood hematocrit (volume fraction) 40 % 40-54 Automated erythrocyte mean corpuscular volume 85 [foz_us] 80-99 Automated erythrocyte mean corpuscular hemoglobin (mass per erythrocyte) 30 pg 25-34 Automated erythrocyte mean corpuscular hemoglobin concentration measurement ( mass/volume) 35 g/dL 32-36 Automated erythrocyte distribution width ratio 13.4 % 10.0-14.5 Automated blood platelet count (count/volume) 192 10*3/uL 130-400 Automated blood platelet mean volume measurement 9.9 [foz_us] 7.4-10.4 Automated blood neutrophils/100 leukocytes 71 % 42-75 Automated blood lymphocytes/100 leukocytes 17 % 12-44 Blood monocytes/100 leukocytes 10 % 0-12 Automated blood eosinophils/100 leukocytes 1 % 0-10 Automated blood basophils/100 leukocytes 0 % 0-10 Blood neutrophils automated count (number/volume) 9.0 10*3 1.8-7.8 Blood lymphocytes automated count (number/volume) 2.2 10*3 1.0-4.0 Blood monocytes automated count (number/volume) 1.3 10*3 0.0-1.0 Automated eosinophil count 0.2 10*3/uL 0.0-0.3 Automated blood basophil count (count/volume) 0.0 10*3/uL 0.0-0.1 Whole blood basic metabolic panel - 04/22/18 05:00 Serum or plasma sodium measurement (moles/volume) 142 mmol/L 135-145 Serum or plasma potassium measurement (moles/volume) 4.0 mmol/L 3.6-5.0 Serum or plasma chloride measurement (moles/volume) 110 mmol/L 98-107 Carbon dioxide 23 mmol/L 21-32 Serum or plasma anion gap determination (moles/volume) 9 mmol/L 5-14 Serum or plasma urea nitrogen measurement (mass/volume) 14 mg/dL 7-18 Serum or plasma creatinine measurement (mass/volume) 1.11 mg/dL 0.60-1.30 Serum or plasma urea nitrogen/creatinine mass ratio 13 NRG Serum or plasma creatinine measurement with calculation of estimated glomerular filtration rate > NRG Serum or plasma glucose measurement (mass/volume) 98 mg/dL 70-105 Serum or plasma calcium measurement (mass/volume) 8.9 mg/dL 8.5-10.1 Automated blood complete blood count (hemogram) panel - 04/23/18 05:40 Blood leukocytes automated count (number/volume) 10.7 10*3/uL 4.3-11.0 Blood erythrocytes automated count (number/volume) 4.52 10*6/uL 4.35-5.85 Venous blood hemoglobin measurement (mass/volume) 13.3 g/dL 13.3-17.7 Blood hematocrit (volume fraction) 39 % 40-54 Automated erythrocyte mean corpuscular volume 86 [foz_us] 80-99 Automated erythrocyte mean corpuscular hemoglobin (mass per erythrocyte) 29 pg 25-34 Automated erythrocyte mean corpuscular hemoglobin concentration measurement ( mass/volume) 34 g/dL 32-36 Automated erythrocyte distribution width ratio 13.6 % 10.0-14.5 Automated blood platelet count (count/volume) 172 10*3/uL 130-400 Automated blood platelet mean volume measurement 9.7 [foz_us] 7.4-10.4 Whole blood basic metabolic panel - 04/23/18 05:40 Serum or plasma sodium measurement (moles/volume) 142 mmol/L 135-145 Serum or plasma potassium measurement (moles/volume) 4.6 mmol/L 3.6-5.0 Serum or plasma chloride measurement (moles/volume) 110 mmol/L 98-107 Carbon dioxide 23 mmol/L 21-32 Serum or plasma anion gap determination (moles/volume) 9 mmol/L 5-14 Serum or plasma urea nitrogen measurement (mass/volume) 7 mg/dL 7-18 Serum or plasma creatinine measurement (mass/volume) 1.08 mg/dL 0.60-1.30 Serum or plasma urea nitrogen/creatinine mass ratio 6 NRG Serum or plasma creatinine measurement with calculation of estimated glomerular filtration rate > NRG Serum or plasma glucose measurement (mass/volume) 92 mg/dL 70-105 Serum or plasma calcium measurement (mass/volume) 9.0 mg/dL 8.5-10.1 Encounters ACCT No. Visit Date/Time Discharge Status Pt. Type Provider Facility Loc./Unit Complaint [id number] 10/02/2014 14:57:00 10/02/2014 23:59:59 CLS Outpatient JESUS DA SILVA APRN [id number] 08/16/2014 09:49:00 08/16/2014 23:59:59 CLS Outpatient KHADIJAH COYLE DO [id number] 04/12/2014 14:51:00 04/12/2014 23:59:59 CLS Outpatient JESUS DA SILVA APRN [id number] 10/26/2013 07:49:00 10/26/2013 23:59:59 CLS Outpatient DIANA SESAY DDS [id number] 08/29/2013 15:38:00 08/29/2013 23:59:59 CLS Outpatient KHADIJAH COYLE DO [id number] 08/11/2013 14:18:00 08/11/2013 23:59:59 [place] [id number] 01/15/2018 16:40:00 01/15/2018 23:59:59 CLS Outpatient SUSHMA KAUFFMAN APRN [facility] [id number] 07/17/2017 09:20:00 Document Registration [id number] 03/12/2018 18:13:00 Document Registration [id number] 03/12/2018 18:13:00 03/12/2018 21:40:00 DIS Outpatient Re[facility] ER [id number] 01/25/2017 20:07:00 01/25/2017 22:10:00 DIS Outpatient KENNEDI MIRANDA [id number] 01/25/2017 20:57:33 Document Registration [id number] 04/22/2018 01:00:00 04/23/2018 14:05:00 DIS Inpatient MANDIE BANEGAS, LINWOOD Juarez [facility] 4TH PNA,UTI,SEPSIS [id number] 04/20/2018 09:23:00 04/20/2018 12:10:00 DIS Outpatient AMELIA FELIX DO [facility] ENDO DIARRHEA/BLOOD IN STOOL/ EPIGASTRIC ABD PAIN [id number] 04/14/2018 05:40:00 04/14/2018 15:00:00 DIS Outpatient AMELIA FELIX DO [facility] PREOP COLONOSCOPY/EGD [id number] 04/01/2018 10:18:00 04/01/2018 23:59:59 CLS Outpatient SHAHBAZ CROWDER [facility] CARD BLOOD IN STOOL, HEMATEMESIS W/ NAUSEA
[2018-06-08] MEDS ORDERED: NS IV 1000 ML 1,000 ML IV ONE (21:20)
[2018-06-08 21:30] LABS: BASOPHILS % (AUTO) 0 % (0-10); EOSINOPHILS % (AUTO) 0 % (0-10); HEMATOCRIT 46 % (40-54); HEMOGLOBIN 16.4 G/DL (13.3-17.7); LYMPHOCYTES # (AUTO) 0.8 X 10^3 (1.0-4.0); LYMPHOCYTES % (AUTO) 7 % (12-44); MEAN CORPUSCULAR HEMOGLOBIN 29 PG (25-34); MEAN CORPUSCULAR HGB CONC 36 G/DL (32-36); MEAN CORPUSCULAR VOLUME 82 FL (80-99); MEAN PLATELET VOLUME 9.8 FL (7.4-10.4); MONOCYTES # (AUTO) 1.1 X 10^3 (0.0-1.0); MONOCYTES % (AUTO) 10 % (0-12); NEUTROPHILS # (AUTO) 9.7 X 10^3 (1.8-7.8); NEUTROPHILS % (AUTO) 83 % (42-75); PLATELET COUNT 212 10^3/uL (130-400); RED BLOOD COUNT 5.61 10^6/uL (4.35-5.85); RED CELL DISTRIBUTION WIDTH 13.7 % (10.0-14.5); WHITE BLOOD COUNT 11.6 10^3/uL (4.3-11.0)
[2018-06-08] MEDS ORDERED: ONDANSETRON 4 MG/2 ML (SDV) Z0FRAN IVP ONE (21:30)
[2018-06-08] MEDS ORDERED: HYOSCYAMINE 0.125 MG (LEVSIN) TAB PO ONE (21:30)
[2018-06-08] MEDS ORDERED: PANTOPRAZOLE 40 MG (PROTONIX) VIAL IV ONE (21:30)
[2018-06-08 21:48] LABS: BILIRUBIN,URINE NEGATIVE (NEGATIVE); CLARITY,URINE CLEAR; COLOR,URINE YELLOW; GLUCOSE, URINE (UA) NEGATIVE (NEGATIVE); KETONES,URINE 1+ (NEGATIVE); LEUKOCYTE ESTERASE ,URINE 2+ (NEGATIVE); NITRITE,URINE NEGATIVE (NEGATIVE); PH,URINE 5 (5-9); PROTEIN,URINE 1+ (NEGATIVE); UROBILINOGEN,URINE NORMAL (NORMAL)
[2018-06-08 21:49] LABS: BACTERIA,URINE NEGATIVE /HPF; RBC,URINE RARE /HPF
[2018-06-08 21:50] LABS: ALANINE AMINOTRANSFERASE 29 U/L (0-55); ALBUMIN 4.7 GM/DL (3.2-4.5); ALKALINE PHOSPHATASE 77 U/L (40-136); AMYLASE 73 U/L (25-125); BILIRUBIN,TOTAL 0.9 MG/DL (0.1-1.0); BUN/CREATININE RATIO 16; CALCIUM 9.8 MG/DL (8.5-10.1); CARBON DIOXIDE 22 MMOL/L (21-32); CHLORIDE 108 MMOL/L (98-107); CREATININE SERUM 1.25 MG/DL (0.60-1.30); GFR ESTIMATED > 60; GLUCOSE 118 MG/DL (70-105); LIPASE 35 U/L (8-78); POTASSIUM 3.9 MMOL/L (3.6-5.0); SODIUM 142 MMOL/L (135-145); TOTAL PROTEIN 7.7 GM/DL (6.4-8.2)
[2018-06-08 21:54] LABS: BAND NEUTROPHILS 1 %; BASOPHILS % (MANUAL) 0 %; EOSINOPHILS % (MANUAL) 0 %; LYMPHOCYTES % (MANUAL) 5 %; MONOCYTES % (MANUAL) 5 %; NEUTROPHILS % (MANUAL) 89 %; RBC MORPH NORMAL
[2018-06-08 21:56] LABS: AMPHETAMINE SCREEN, URINE NEGATIVE (NEGATIVE); BARBITURATE SCREEN URINE NEGATIVE (NEGATIVE); BENZODIAZEPINES SCREEN URINE NEGATIVE (NEGATIVE); CANNABINOID SCREEN, URINE NEGATIVE (NEGATIVE); COCAINE SCREEN URINE NEGATIVE (NEGATIVE); METHADONE STAT NEGATIVE (NEGATIVE); METHAMPHETAMINE SCREEN URINE S NEGATIVE (NEGATIVE); OPIATE SCREEN URINE NEGATIVE (NEGATIVE); OXYCODONE STAT NEGATIVE (NEGATIVE); PROPOXYPHENE STAT NEGATIVE (NEGATIVE); TRICYCLIC ANTIDEPRESSANTS SCRE NEGATIVE (NEGATIVE)
--- NOTE | 2018-06-08 22:08 | ED GI ---
General Chief Complaint: Abdominal/GI Problems Stated Complaint: VOMITING,SHAKING Nursing Triage Note: Pt has been vomiting all day today (>10 times). Pt was in hospital couple weeks ago for pneumonia and sepsis. Pt has had diarrhea for the past 6 years. Pt has generalized abd pain, but localizes main pain on RUQ. Pt states pain is a 10, stabbing and constant. Sepsis Screen: Possible Sepsis Risk Source of Information: Patient, Other (FEMALE S.O. TRIES TO DO MOST OF TALKING FOR PT) History of Present Illness Date Seen by Provider: Jun 08, 2018 Time Seen by Provider: 21:20 Initial Comments PT ARRIVES VIA POV FROM HOME C/O NAUSEA/VOMITING/DIARRHEA AND ABDOMINAL PAIN SINCE THIS MORNING STATES HE HAS VOMITED OVER 10 TIMES TODAY AND CANNOT KEEP ANYTHING DOWN. STATES HAS HAD A FEW STREAKS OF BLOOD IN EMESIS. STATES HE HAS HAD DIARRHEA X 4 TODAY--NO BLACK/BLOODY/TARRY STOOLS. C/O GENERALIZED CONSTANT ABDOMINAL PAIN WITH SHARP SHOOTING PAINS THAT COME AND GO--PAIN IS MOSTLY IN RIGHT MID AND UPPER ABDOMEN PAIN IS WORSE WITH MOVEMENTS HAS HAD SUBJECTIVE FEVER LAST VOID IS UNKNOWN--THINKS IT WAS SOME TIME THIS MORNING. 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 STATES HE WAS HOSPITALIZED IN [place] WITH PNEUMONIA PT HAD EGD AND COLONOSCOPY 04/20/18 FOR ONGOING ISSUES WITH DIARRHEA AND NAUSEA/ VOMITING WITH QUESTIONABLE HEMATEMESIS. WAS FOUND TO HAVE NORMAL COLON, AND MILD HIATAL HERNIA AND REFLUX ESOPHAGITIS. PT HAD ALSO BEEN PREVIOUSLY TREATED FOR H. PYLORI PT WAS THEN ADMITTED 04/22-04/24 FOR PNEUMONIA. PT HAS FOLLOW UP APPOINTMENT WITH DR. FELIX TOMORROW FOR TEST RESULTS FROM COLONOSCOPY. STATES HE DID NOT COMPLETELY GET OVER THE GI ISSUES, BUT PNEUMONIA SYMPTOMS HAVE RESOLVED. Allergies and Home Medications Allergies Coded Allergies: Penicillins (Verified Allergy, Unknown, ANAPHYLAXIS, 04/15/18) diphenhydramine (Verified Allergy, Unknown, RASH, 04/15/18) ibuprofen (Verified Allergy, Unknown, RASH, 04/15/18) Home Medications Buspirone HCl 10 Mg Tablet, 10 MG PO BID, (Reported) Cefdinir 300 Mg Capsule, 300 MG PO BID Prescribed by: LINWOOD LOCKWOOD on 04/23/18 1132 Fluoxetine HCl 10 Mg Capsule, 30 MG PO DAILY, (Reported) TAKES 3 (10MG) CAPSULES Ondansetron 8 Mg Tab.rapdis, 8 MG SL Q8H PRN for NAUSEA/VOMITING-1ST LINE, ( Reported) Pantoprazole Sodium 40 Mg Tablet.dr, 40 MG PO DAILY, (Reported) Promethazine HCl 25 Mg Tablet, 25 MG PO Q6H PRN for NAUSEA/VOMITING-2ND LINE, ( Reported) Quetiapine Fumarate 100 Mg Tablet, 100 MG PO HS, (Reported) Sucralfate 1 Gm Tablet, 1 GM PO ACHS, (Reported) Terbinafine HCl 15 Gm Cream..g., TOP BID PRN for RASH, (Reported) Patient Home Medication List Home Medication List Reviewed: Yes Review of Systems Review of Systems Constitutional: see HPI, chills, fever, malaise, weakness EENTM: No Symptoms Reported Respiratory: No Symptoms Reported Cardiovascular: No Symptoms Reported Gastrointestinal: See HPI, Abdominal Pain, Diarrhea, Nausea, Poor Appetite, Poor Fluid Intake; Denies Rectal Bleeding; Vomiting Genitourinary: See HPI Musculoskeletal: no symptoms reported Skin: no symptoms reported Psychiatric/Neurological: No Symptoms Reported Endocrine: No Symptoms Reported Hematologic/Lymphatic: No Symptoms Reported Past Yzjnsog-Mvepuc-Rlksrp Hx Patient Social History Alcohol Use: Denies Use Recreational Drug Use: No Smoking Status: Never a Smoker Former Smoker, Quit: Apr 14, 2016 Recent Foreign Travel: No Contact w/Someone Who Travel: No Recent Infectious Disease Expo: No Recent Hopitalizations: Yes (few weeks ago for pneumonia and sepsis) Physical Abuse: No Sexual Abuse: No Mistreated: No Fear: No Immunizations Up To Date Tetanus Booster (TDap): Unknown Seasonal Allergies Seasonal Allergies: No Past Medical History Surgeries: Yes (lump removed from tongue, egd, colonoscopy) Respiratory: Yes (PNEUMONIA 04/2018) Pneumonia Cardiac: No Neurological: No Sexually Transmitted Disease: No HIV/AIDS: No Genitourinary: Yes Kidney Stones Gastrointestinal: Yes (ONGOING NAUSEA/VOMITING/DIARRHEA) Gastroesophageal Reflux, Esophagitis, Hiatal Hernia Musculoskeletal: No Endocrine: No HEENT: No Cancer: No Psychosocial: Yes (ANGER ISSUES) Sleep Difficulties, Anxiety, Bipolar, Depression Integumentary: No Blood Disorders: No Adverse Reaction/Blood Tranf: No Family Medical History Diabetes mellitus 19 FATHER Diabetes Physical Exam Vital Signs Vital Signs - First Documented 06/08/18 21:10 Temp 100.0 Pulse 110 Resp 20 B/P (MAP) 129/91 (104) Pulse Ox 97 O2 Delivery Room Air Capillary Refill : Less Than 3 Seconds Height/Weight/BMI Height: 5'8.00" Weight: 190lbs. 0.0oz. 86.232186oa; 28.2 BMI Method:Stated General Appearance: WD/WN, no apparent distress, other (DRAMATIC) Neck: normal inspection Respiratory: normal breath sounds, no respiratory distress, no accessory muscle use Cardiovascular: regular rate, rhythm, no edema, no JVD, no murmur Gastrointestinal: soft, no organomegaly, no pulsatile mass, abnormal bowel sounds (HYPERACTIVE); No distended, No guarding, No rebound; tenderness ( DIFFUSE TENDERNESS, BUT HAS SIGNIFICANT TENDERNESS TO RIGHT MID AND UPPER ABDOMEN); No hernia, No mass Extremities: normal inspection, normal capillary refill Back: normal inspection, no CVA tenderness Neurologic/Psychiatric: motor expert II-XII nml as tested, no motor/sensory deficits, alert, oriented x 3 Skin: normal color, warm/dry, rash (HAS APPEARANCE OF CONTACT DERMATITIS TO AREA BELOW UMBILICUS, IN AREA OF WHERE BELT BUCKLE OR BUTTON WOULD RUB. SKIN ERYTHEMATOUS, THICKENED, SLIGHTLY PAPULAR, SLIGHTLY SCALY. ), tattoos/piercings (TATTOOS) Focused Exam Lactate Level 06/08/18 21:17: Lactic Acid Level 0.97 Lactic Acid Level Laboratory Tests Test 06/08/18 21:17 Lactic Acid Level 0.97 MMOL/L (0.50-2.00) Progress/Results/Core Measures Results/Orders Lab Results Laboratory Tests Test 06/08/18 21:17 06/08/18 21:18 06/08/18 21:35 Range/Units White Blood Count 11.6 H 4.3-11.0 10^3/uL Red Blood Count 5.61 4.35-5.85 10^6/uL Hemoglobin 16.4 13.3-17.7 G/DL Hematocrit 46 40-54 % Mean Corpuscular Volume 82 80-99 FL Mean Corpuscular Hemoglobin 29 25-34 PG Mean Corpuscular Hemoglobin Concent 36 32-36 G/DL Red Cell Distribution Width 13.7 10.0-14.5 % Platelet Count 212 130-400 10^3/uL Mean Platelet Volume 9.8 7.4-10.4 FL Neutrophils (%) (Auto) 83 H 42-75 % Lymphocytes (%) (Auto) 7 L 12-44 % Monocytes (%) (Auto) 10 0-12 % Eosinophils (%) (Auto) 0 0-10 % Basophils (%) (Auto) 0 0-10 % Neutrophils # (Auto) 9.7 H 1.8-7.8 X 10^3 Lymphocytes # (Auto) 0.8 L 1.0-4.0 X 10^3 Monocytes # (Auto) 1.1 H 0.0-1.0 X 10^3 Eosinophils # (Auto) 0.0 0.0-0.3 10^3/uL Basophils # (Auto) 0.0 0.0-0.1 10^3/uL Neutrophils % (Manual) 89 % Lymphocytes % (Manual) 5 % Monocytes % (Manual) 5 % Eosinophils % (Manual) 0 % Basophils % (Manual) 0 % Band Neutrophils 1 % Blood Morphology Comment NORMAL Sodium Level 142 135-145 MMOL/L Potassium Level 3.9 3.6-5.0 MMOL/L Chloride Level 108 H 98-107 MMOL/L Carbon Dioxide Level 22 21-32 MMOL/L Anion Gap 12 5-14 MMOL/L Blood Urea Nitrogen 20 H 7-18 MG/DL Creatinine 1.25 0.60-1.30 MG/DL Estimat Glomerular Filtration Rate > 60 BUN/Creatinine Ratio 16 Glucose Level 118 H 70-105 MG/DL Lactic Acid Level 0.97 0.50-2.00 MMOL/L Calcium Level 9.8 8.5-10.1 MG/DL Corrected Calcium 8.5-10.1 MG/DL Magnesium Level 2.0 1.8-2.4 MG/DL Total Bilirubin 0.9 0.1-1.0 MG/DL Aspartate Amino Transf (AST/SGOT) 19 5-34 U/L Alanine Aminotransferase (ALT/SGPT) 29 0-55 U/L Alkaline Phosphatase 77 40-136 U/L Total Protein 7.7 6.4-8.2 GM/DL Albumin 4.7 H 3.2-4.5 GM/DL Amylase Level 73 25-125 U/L Lipase 35 8-78 U/L Serum Alcohol < 10 <10 MG/DL Glucometer 116 H 70-110 MG/DL Urine Color YELLOW Urine Clarity CLEAR Urine pH 5 5-9 Urine Specific [place] 1.020 1.016-1.022 Urine Protein 1+ H NEGATIVE Urine Glucose (UA) NEGATIVE NEGATIVE Urine Ketones 1+ H NEGATIVE Urine Nitrite NEGATIVE NEGATIVE Urine Bilirubin NEGATIVE NEGATIVE Urine Urobilinogen NORMAL NORMAL MG/DL Urine Leukocyte Esterase 2+ H NEGATIVE Urine RBC (Auto) NEGATIVE NEGATIVE Urine RBC RARE /HPF Urine WBC 2-5 /HPF Urine Crystals NONE /LPF Urine Bacteria NEGATIVE /HPF Urine Casts NONE /LPF Urine Mucus LARGE H /LPF Urine Culture Indicated NO Urine Opiates Screen NEGATIVE NEGATIVE Urine Oxycodone Screen NEGATIVE NEGATIVE Urine Methadone Screen NEGATIVE NEGATIVE Urine Propoxyphene Screen NEGATIVE NEGATIVE Urine Barbiturates Screen NEGATIVE NEGATIVE Ur Tricyclic Antidepressants Screen NEGATIVE NEGATIVE Urine Phencyclidine Screen NEGATIVE NEGATIVE Urine Amphetamines Screen NEGATIVE NEGATIVE Urine Methamphetamines Screen NEGATIVE NEGATIVE Urine Benzodiazepines Screen NEGATIVE NEGATIVE Urine Cocaine Screen NEGATIVE NEGATIVE Urine Cannabinoids Screen NEGATIVE NEGATIVE Micro Results Microbiology 06/08/18 Influenza Types A,B Antigen (GARY) - Final, Complete My Orders Orders - ODALIS DONATO DO Saline Lock/Iv-Start (06/08/18 21:20) Ekg Tracing (06/08/18 21:20) Monitor-Rhythm Ecg Trace Only (06/08/18 21:20) Amylase (06/08/18 21:20) Cbc With Automated Diff (06/08/18 21:20) Comprehensive Metabolic Panel (06/08/18 21:20) Lactic Acid Analyzer (06/08/18 21:20) Lipase (06/08/18 21:20) Magnesium (06/08/18 21:20) Saline Lock/Iv-Start (06/08/18 21:20) Ns Iv 1000 Ml (Sodium Chloride 0.9%) (06/08/18 21:20) Ondansetron Injection (Zofran Injectio (06/08/18 21:30) Alcohol (06/08/18 21:29) Drug Screen Stat (Urine) (06/08/18 21:29) Blood Culture (06/08/18 21:29) Influenza A And B Antigens (06/08/18 21:29) Pantoprazole Injection (Protonix Injecti (06/08/18 21:30) Hyoscyamine Sl Tablet (Levsin Sl Tablet) (06/08/18 21:30) Manual Differential (06/08/18 21:17) Ct Abdomen/Pelvis W (06/08/18 21:57) Acute Abd Series (06/08/18 21:57) Iohexol Injection (Omnipaque 350 Mg/Ml 1 (06/08/18 22:30) Contrast Received (Contrast Received) (06/08/18 22:30) Ns (Ivpb) (Sodium Chloride 0.9%) (06/08/18 22:30) Acetaminophen Tablet (Tylenol Tablet) (06/08/18 23:30) Medications Given in ED Current Medications Medications Dose Ordered Sig/Mitzy Route Start Time Stop Time Status Last Admin Dose Admin Acetaminophen 1,000 mg ONCE ONCE PO 06/08/18 23:30 06/08/18 23:31 DC 06/08/18 23:56 1,000 MG Hyoscyamine Sulfate 0.25 mg ONCE ONCE PO 06/08/18 21:30 06/08/18 21:31 DC 06/08/18 21:44 0.25 MG Iohexol 100 ml ONCE ONCE IV 06/08/18 22:30 06/08/18 22:31 DC 06/08/18 22:24 100 ML Ondansetron HCl 4 mg ONCE ONCE IVP 06/08/18 21:30 06/08/18 21:31 DC 06/08/18 21:43 4 MG Pantoprazole 40 mg ONCE ONCE IV 06/08/18 21:30 06/08/18 21:31 DC 06/08/18 21:44 40 MG Sodium Chloride 250 ml ONCE ONCE IV 06/08/18 22:30 06/08/18 22:31 DC 06/08/18 22:24 80 ML Sodium Chloride 1,000 ml @ 0 mls/hr Q0M ONCE IV 06/08/18 21:20 06/08/18 21:23 DC 06/08/18 21:43 1,000 MLS/HR Vital Signs/I&O 06/08/18 21:10 Temp 100.0 Pulse 110 Resp 20 B/P (MAP) 129/91 (104) Pulse Ox 97 O2 Delivery Room Air 06/09/18 00:00 Intake Total 1000 ml Balance 1000 ml Blood Pressure Mean: 104 FSBG Bedside Testing Finger Stick Blood Glucose: 116 Blood Glucose Action Taken: Dr Donato notified Progress Progress Note : Progress Note UNEVENTFUL ER STAY. NO DETERIORATION IN PT'S CONDITION DURING ER STAY NAUSEA IMPROVED AND NO VOMITING OR DIARRHEA DURING ER STAY CONTINUES TO C/O PAIN--GIVEN FENTANYL PRIOR TO ADMIT, WITH SOME IMPROVEMENT. Diagnostic Imaging Comments ABDOMEN XRAYS--NO ACUTE PROCESS, PENDING RADIOLOGIST REVIEW CT ABDOMEN/PELVIS--APPENDIX IS ENLARGED AT 8MM AND IS IN RIGHT UPPER QUADRANT. NO SURROUNDING INFLAMMATORY CHANGES. SPLENOMEGALY. QUESTIONABLE WALL THICKENING OF DISTAL ESOPHAGUS-LIMITED VIEW OF ESOPHAGUS. FLUID IN COLON. PER [facility] VIA FAX @ [phone] Reviewed: Reviewed by De Departure Communication (Admissions) [id number]--SPOKE WITH DR. TURPIN, SURGEON MEDICAL SERVICES COORDINATOR. ACCEPTS PT FOR ADMIT. Impression Primary Impression: Abdominal pain Additional Impressions: Gastroenteritis BORDERLINE APPENDIX IN RUQ Dehydration Disposition: ADMITTED INPATIENT Condition: Stable Admissions Decision to Admit Reason: Admit from ER (General) Decision to Admit/Date: Jun 08, 2018 Time/Decision to Admit Time: 23:30 Departure-Patient Inst. Referrals: SHAHBAZ CROWDER (PCP/Family) Primary Care Physician ODALIS DONATO DO Jun 08, 2018 22:08
[2018-06-08] MEDS ORDERED: NS 250 ML (IVPB) BAG IV ONE (22:30)
[2018-06-08] MEDS ORDERED: IOHEXOL 350 MG/ML 100 ML (OMNIPAQUE 350) VIAL IV ONE (22:30)
[2018-06-08] MEDS ORDERED: RECEIVED CONTRAST (Hold Metformin) IV SCH (22:30)
[2018-06-08] MEDS ORDERED: ACETAMINOPHEN 500 MG TAB (TYLENOL) PO ONE (23:30)
[2018-06-09] MEDS ORDERED: fentaNYL INJECTION 100 MCG/2 ML AMP IVP STA (00:14)
--- OUTSIDE RECORDS SUMMARY | 2018-06-09 00:21 | XMS REPORT | Continuity of Care Document ---
Author Author [facility] Address Unknown Phone Unavailable Allergies Active Description Code Type Severity Reaction Onset Reported/Identified Relationship to Patient Clinical Status Yes BENADRYL UNKNOWN UNKNOWN Yes IBUPROFEN UNKNOWN UNKNOWN Yes PENICILLINS MODERATE OTHER Yes Benadryl Drug Allergy N/A N/A 08/11/2013 Yes ibuprofen Drug Allergy N/A N/A 08/11/2013 Yes Penicillins Drug Allergy N/A N/A 08/11/2013 Yes No Allergy Information Available [id number] Drug Allergy Unknown N/A 2017 Yes diphenhydramine [id number] Drug Allergy Unknown RASH 04/15/2018 Yes ibuprofen [id number] Drug Allergy Unknown RASH 04/15/2018 Yes Penicillins [id number] Drug Allergy Unknown ANAPHYLAXIS 04/15/2018 Medications Medication [...] Procedures Code [place] [address] INFLUENZA A & B (IN-HOUSE) 08/11/2013 80549 ROUTINE VENIPUNCTURE 08/16/2014 16615 URINE DRUG SCREEN (IN-HOUSE ) 08/16/2014 62504 TSH 08/16/2014 94816 A1C (IN-HOUSE) 08/16/2014 Results Test Result Range Amylase - 01/25/17 20:56 Amylase 56 U/L 20-100 CMP - 07/17/17 09:49 GLUCOSE 64 mg/dL 65-99 UREA NITROGEN (BUN) 18 mg/dL 7-25 CREATININE 1.06 mg/dL 0.60-1.35 eGFR NON-AFR. SUDANESE 91 mL/min/1.73m2 > OR=60 eGFR 106 mL/min/1.73m2 [...] 5-8.5 Urine-Protein Negative Negative Urine-RBC 0-2/HPF Urine-Specific [place] >=1.030 1.000-1.030 Urine-WBC 2-5/HPF Urobilinogen 0.2 0.2-1.0 [...] culture - 04/21/18 22:50 Bacterial urine culture [id number] NRG COLONY COUNT . NRG FTX;REPORTABLE 10,000 [...] NRG Blood erythrocyte morphology finding identification NORMAL [facility] Serum heterophile antibody titer - 04/21/18 [...] INFLUENZA A AND B ANTIGENS BY IA [facility] Comprehensive metabolic panel - 04/21/18 23:00 [...] Status Pt. Type Provider Facility Loc./Unit Complaint [id number] 10/02/2014 14:57:00 10/02/2014 23:59:59 CLS Outpatient JESUS DA SILVA APRN [id number] 08/16/2014 09:49:00 08/16/2014 23:59:59 CLS Outpatient KHADIJAH COYLE DO [id number] 04/12/2014 14:51:00 04/12/2014 23:59:59 CLS Outpatient JESUS DA SILVA APRN [id number] 10/26/2013 07:49:00 10/26/2013 23:59:59 CLS Outpatient DIANA SESAY DDS [id number] 08/29/2013 15:38:00 08/29/2013 23:59:59 CLS Outpatient KHADIJAH COYLE DO [id number] 08/11/2013 14:18:00 08/11/2013 23:59:59 [place] [id number] 01/15/2018 16:40:00 01/15/2018 23:59:59 CLS Outpatient SUSHMA KAUFFMAN APRN [facility] [id number] 07/17/2017 09:20:00 Document Registration [id number] 03/12/2018 18:13:00 Document Registration [id number] 03/12/2018 18:13:00 03/12/2018 21:40:00 DIS Outpatient Re[facility] ER [id number] 01/25/2017 20:07:00 01/25/2017 22:10:00 DIS Outpatient KENNEDI MIRANDA [id number] 01/25/2017 20:57:33 Document Registration [id number] 04/22/2018 01:00:00 04/23/2018 14:05:00 DIS Inpatient MANDIE BANEGSA, LINWOOD Juarez [facility] 4TH PNA,UTI,SEPSIS [id number] 04/20/2018 09:23:00 04/20/2018 12:10:00 DIS Outpatient AMELIA FELIX DO [facility] ENDO DIARRHEA/BLOOD IN STOOL/ EPIGASTRIC ABD PAIN [id number] 04/14/2018 05:40:00 04/14/2018 15:00:00 DIS Outpatient AMELIA FELIX DO [facility] PREOP COLONOSCOPY/EGD [id number] 04/01/2018 10:18:00 04/01/2018 23:59:59 CLS Outpatient SHAHBAZ CROWDER [facility] CARD BLOOD IN STOOL, HEMATEMESIS W/ NAUSEA
[2018-06-09 01:00] VITALS: BP 133/67
[2018-06-09] MEDS ORDERED: D5 1/2 NS W/KCL 20 MEQ/L 1,000 ML IV ONE (01:11)
[2018-06-09] MEDS ORDERED: ONDANSETRON 4 MG/2 ML (SDV) Z0FRAN IV PRN (01:30)
[2018-06-09] MEDS ORDERED: ACETAMINOPHEN 500 MG TAB (TYLENOL) PO PRN (01:30)
[2018-06-09] MEDS ORDERED: CATHETER FLUSH 10 ML SYR IV PRN (01:30)
[2018-06-09] MEDS: D5 1/2 NS W/KCL 20 MEQ/L 1,000 ML IV SCH ×3 (01:56→11:12)
[2018-06-09] MEDS: fentaNYL INJECTION 100 MCG/2 ML AMP IV PRN ×4 (02:18→10:52)
[2018-06-09 04:00] VITALS: BP 109/63
[2018-06-09 04:05] VITALS: BP 109/63
[2018-06-09 05:08] LABS: BASOPHILS % (AUTO) 0 % (0-10); EOSINOPHILS # (AUTO) 0.1 10^3/uL (0.0-0.3); EOSINOPHILS % (AUTO) 1 % (0-10); HEMATOCRIT 41 % (40-54); HEMOGLOBIN 14.5 G/DL (13.3-17.7); LYMPHOCYTES # (AUTO) 1.1 X 10^3 (1.0-4.0); LYMPHOCYTES % (AUTO) 15 % (12-44); MEAN CORPUSCULAR HEMOGLOBIN 30 PG (25-34); MEAN CORPUSCULAR HGB CONC 35 G/DL (32-36); MEAN CORPUSCULAR VOLUME 84 FL (80-99); MEAN PLATELET VOLUME 9.8 FL (7.4-10.4); MONOCYTES # (AUTO) 0.9 X 10^3 (0.0-1.0); MONOCYTES % (AUTO) 11 % (0-12); NEUTROPHILS # (AUTO) 5.6 X 10^3 (1.8-7.8); NEUTROPHILS % (AUTO) 73 % (42-75); PLATELET COUNT 176 10^3/uL (130-400); RED BLOOD COUNT 4.91 10^6/uL (4.35-5.85); RED CELL DISTRIBUTION WIDTH 13.8 % (10.0-14.5); WHITE BLOOD COUNT 7.6 10^3/uL (4.3-11.0)
[2018-06-09 05:38] LABS: ALANINE AMINOTRANSFERASE 23 U/L (0-55); ALBUMIN 3.8 GM/DL (3.2-4.5); ALKALINE PHOSPHATASE 61 U/L (40-136); BILIRUBIN,TOTAL 0.8 MG/DL (0.1-1.0); BUN/CREATININE RATIO 14; CALCIUM 8.7 MG/DL (8.5-10.1); CARBON DIOXIDE 22 MMOL/L (21-32); CHLORIDE 110 MMOL/L (98-107); CREATININE SERUM 1.14 MG/DL (0.60-1.30); GFR ESTIMATED > 60; GLUCOSE 124 MG/DL (70-105); POTASSIUM 3.9 MMOL/L (3.6-5.0); SODIUM 140 MMOL/L (135-145); TOTAL PROTEIN 6.1 GM/DL (6.4-8.2)
[2018-06-09] MEDS: CATHETER FLUSH 10 ML SYR IV SCH ×2 (06:08→14:26)
[2018-06-09] MEDS ORDERED: FLU QUADRIvalent (5+ YOA) 2018-2019 (AFLURIA) 0.5 ML IM ONE (07:30)
--- NOTE | 2018-06-09 07:39 | Diagnostic Imaging Report ---
INDICATION: Upper abdominal pain. COMPARISON: CT abdomen and pelvis performed earlier same day. FINDINGS: Low lung volumes. No focal airspace disease. No pleural effusion or pneumothorax. Heart is normal in size. No free intraperitoneal air. Nonobstructive bowel gas pattern. There are a few air-fluid levels within the small bowel and colon on upright imaging which can be seen with enteritis. Normal regional skeleton. IMPRESSION: 1. Nonobstructive bowel gas pattern with features suggestive of enteritis. Dictated by: Dictated on workstation # [id number]
--- NOTE | 2018-06-09 07:47 | Diagnostic Imaging Report ---
PROCEDURE: CT abdomen and pelvis with contrast. TECHNIQUE: Multiple contiguous axial images were obtained through the abdomen and pelvis after administration of intravenous contrast. INDICATION: Right upper quadrant pain with diarrhea. COMPARISON: 04/21/2018 CT abdomen and pelvis. FINDINGS: Lower chest: The lung bases are clear. No pericardial or pleural effusion. Peritoneum: No free intraperitoneal air or fluid. Liver and biliary system: The liver is normal. The gallbladder is normal. No biliary duct dilation. Spleen and Pancreas: Spleen is borderline enlarged measuring 12.5 cm. The pancreas enhances normally without mass lesion or peripancreatic inflammatory changes. Adrenals: Normal. tract: The kidneys enhance normally without suspicious mass or obstruction. Urinary bladder is distended without wall thickening. Prostate is normal. GI tract: Stomach is normally distended with fluid and air and there is no wall thickening. No bowel obstruction. No pericolonic inflammatory changes. Fluid within the small bowel and colon is present. The appendix is in the right upper quadrant but fluid and air-filled and normal. Vasculature and Lymph nodes: Normal caliber aorta. No abdominal or pelvic lymphadenopathy. Musculoskeletal: No concerning osseous lesion. IMPRESSION: 1. No bowel obstruction. Potential enteritis/gastroenteritis. 2. Otherwise, no acute intra-abdominal process. The appendix is normal. 3. Findings are in general agreement with the preliminary report. Dictated by: Dictated on workstation # [id number]
[2018-06-09 08:00] VITALS: BP 113/68
[2018-06-09] MEDS ORDERED: PANTOPRAZOLE 40 MG (PROTONIX) VIAL IV SCH (09:00)
[2018-06-09] MEDS ORDERED: TR1C15 TOP (09:54)
[2018-06-09] MEDS ORDERED: SUCR1TAB36 PO (09:58)
--- NOTE | 2018-06-09 12:00 | History & Physical-Surgical ---
History of Present Illness History of Present Illness Reason for visit/HPI Pt was admitted [facility] night because of abdominal pain, R/O appendicitis. HPI per ED: PT ARRIVES VIA POV FROM HOME C/O NAUSEA/VOMITING/DIARRHEA AND ABDOMINAL PAIN SINCE THIS MORNING STATES HE HAS VOMITED OVER 10 TIMES TODAY AND CANNOT KEEP ANYTHING DOWN. STATES HAS HAD A FEW STREAKS OF BLOOD IN EMESIS. STATES HE HAS HAD DIARRHEA X 4 TODAY--NO BLACK/BLOODY/TARRY STOOLS. C/O GENERALIZED CONSTANT ABDOMINAL PAIN WITH SHARP SHOOTING PAINS THAT COME AND GO--PAIN IS MOSTLY IN RIGHT MID AND UPPER ABDOMEN PAIN IS WORSE WITH MOVEMENTS HAS HAD SUBJECTIVE FEVER LAST VOID IS UNKNOWN--THINKS IT WAS SOME TIME THIS MORNING. 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 STATES HE WAS HOSPITALIZED IN [facility] WITH PNEUMONIA PT HAD EGD AND COLONOSCOPY 04/20/18 FOR ONGOING ISSUES WITH DIARRHEA AND NAUSEA/ VOMITING WITH QUESTIONABLE HEMATEMESIS. WAS FOUND TO HAVE NORMAL COLON, AND MILD HIATAL HERNIA AND REFLUX ESOPHAGITIS. PT HAD ALSO BEEN PREVIOUSLY TREATED FOR H. PYLORI PT WAS THEN ADMITTED 04/22-04/24 FOR PNEUMONIA. PT HAS FOLLOW UP APPOINTMENT WITH DR. TARIQ TOMORROW FOR TEST RESULTS FROM COLONOSCOPY. STATES HE DID NOT COMPLETELY GET OVER THE GI ISSUES, BUT PNEUMONIA SYMPTOMS HAVE RESOLVED. When I spoke to him and his girlfriend today, they relate a story of severe lower abdominal pain. 10 out of 10 stabbing pain. Associated symptoms include diarrhea (watery occurring 2-3 times per day), nausea and recent sick contacts with girlfriend and child who had "gastritis". He has seen Dr. Tariq and had EGD, colonoscopy and HIDA scan. They state he has never had any stool studies. Date of Admission Jun 09, 2018 at 00:02 Time Seen by a Provider: 11:13 I consulted on this patient on 06/09/18 11:55 Attending Physician Abner Turpin DO Admitting Physician Radu Consult Allergies and Home Medications Allergies Coded Allergies: Penicillins (Verified Allergy, Unknown, ANAPHYLAXIS, 04/15/18) diphenhydramine (Verified Allergy, Unknown, RASH, 04/15/18) ibuprofen (Verified Allergy, Unknown, RASH, 04/15/18) Home Medications Buspirone HCl 10 Mg Tablet, 10 MG PO BID, (Reported) LAST FILLED #60 10-16-18 Fluoxetine HCl 10 Mg Capsule, 30 MG PO DAILY, (Reported) LAST FILLED #90 04-27-18 TAKES 3 (10MG) CAPSULES Pantoprazole Sodium 40 Mg Tablet.dr, 40 MG PO DAILY, (Reported) LAST FILLED #30 04-20-18 Quetiapine Fumarate 100 Mg Tablet, 100 MG PO HS, (Reported) LAST FILLED #30 18 Sucralfate 1 Gm Tablet, 1 GM PO ACHS PRN for STOMACH UPSET, (Reported) LAST FILLED #120 03-13-18 Triamcinolone Acet 15 Gm Cr, TOP BID, (Reported) Patient Home Medication List Home Medication List Reviewed: Yes Past Ltxirtn-Kabczh-Egoejq Hx Patient Social History Alcohol Use: Denies Use Recreational Drug Use: No Smoking Status: Never a Smoker Former Smoker, Quit: Apr 14, 2016 Recent Foreign Travel: No Contact w/Someone Who Travel: No Recent Infectious Disease Expo: No Recent Hopitalizations: Yes (approx. 1 month ago for pne/sepsis) Physical Abuse Screen: No Sexual Abuse: No Immunizations Up To Date Tetanus Booster (TDap): Unknown Seasonal Allergies Seasonal Allergies: No Surgeries History of Surgeries: Yes (lump removed from tongue, egd, colonoscopy) Respiratory History of Respiratory Disorde: Yes (PNEUMONIA 04/2018) Respiratory Disorders: Pneumonia Cardiovascular History of Cardiac Disorders: No Neurological History of Neurological Disord: No Reproductive System Sexually Transmitted Disease: No HIV/AIDS: No Genitourinary History of Genitourinary Disor: Yes Genitourinary Disorders: Kidney Stones Gastrointestinal History of Gastrointestinal Di: Yes (ONGOING NAUSEA/VOMITING/DIARRHEA) Gastrointestinal Disorders: Gastroesophageal Reflux, Esophagitis, Hiatal Hernia Musculoskeletal History of Musculoskeletal Dis: No Endocrine History of Endocrine Disorders: No HEENT History of HEENT Disorders: No Cancer History of Cancer: No Psychosocial History of Psychiatric Problem: Yes (ANGER ISSUES) Behavioral Health Disorders: Sleep Difficulties, Anxiety, Bipolar, Depression Integumentary History of Skin or Integumenta: No Blood Transfusions History of Blood Disorders: No Adverse Reaction to a Blood Tr: No Family Medical History Significant Family History: Diabetes Family Medial History: Diabetes mellitus 19 FATHER Review of Systems Constitutional: chills, diaphoresis, malaise, weakness EENTM: No blurred vision, No double vision, No mouth pain, No mouth swelling, No epistaxis Respiratory: No cough, No dyspnea on exertion, No hemoptysis, No phlegm Cardiovascular: No chest pain, No palpitations Gastrointestinal: abdominal pain, diarrhea; No jaundice; loss of appetite; No melena; nausea, vomiting Genitourinary: No dysuria, No frequency, No hematuria Musculoskeletal: joint pain, joint swelling Skin: No change in color, No change in hair/nails, No lesions Psychiatric/Neurological: Anxiety, Depressed; Denies Seizure, Denies Tremors pt denies any abnormal bleeding or bruising Physical Exam Vital Signs Vital Signs - First Documented 06/08/18 21:10 Temp 100.0 Pulse 110 Resp 20 B/P (MAP) 129/91 (104) Pulse Ox 97 O2 Delivery Room Air Capillary Refill : Less Than 3 Seconds Height, Weight, BMI Height: 5'9.00" Weight: 169lbs. 1.6oz. [id number]; 25.0 BMI Method:Stated General Appearance: WD/WN, Chronically ill, Mild Distress Eyes: Bilateral Eye PERRL, Bilateral Eye EOMI HEENT: Moist Mucous Membranes; No Scleral Icterus (L), No Scleral Icterus (R) Neck: Full Range of Motion, Normal Inspection, Non Tender, Supple Respiratory: Chest Non Tender, Lungs Clear, Normal Breath Sounds, No Accessory Muscle Use, No Respiratory Distress Cardiovascular: Regular Rate, Rhythm, No Edema, No Murmur, Normal Peripheral Pulses Gastrointestinal: No Pulsatile Mass; No Distended; Tenderness Rectal: Deferred Back: No CVA Tenderness, No Vertebral Tenderness Extremity: Normal Capillary Refill, Normal Inspection, Normal Range of Motion, Non Tender, No Calf Tenderness, No Pedal Edema Neurologic/Psychiatric: Alert, Oriented x3, No Motor/Sensory Deficits, matcher II- XII Norm as Tested Skin: No Erythema, No Jaundice, No Mottled; Pallor Lymphatic: No Adenopathy (neck, axilla or groin) Data Review Labs Laboratory Tests 06/08/18 21:17: White Blood Count 11.6H, Red Blood Count 5.61, Hemoglobin 16.4, Hematocrit 46, Mean Corpuscular Volume 82, Mean Corpuscular Hemoglobin 29, Mean Corpuscular Hemoglobin Concent 36, Red Cell Distribution Width 13.7, Platelet Count 212, Mean Platelet Volume 9.8, Neutrophils (%) (Auto) 83H, Lymphocytes (%) (Auto) 7L , Monocytes (%) (Auto) 10, Eosinophils (%) (Auto) 0, Basophils (%) (Auto) 0, Neutrophils # (Auto) 9.7H, Lymphocytes # (Auto) 0.8L, Monocytes # (Auto) 1.1H, Eosinophils # (Auto) 0.0, Basophils # (Auto) 0.0, Neutrophils % (Manual) 89, Lymphocytes % (Manual) 5, Monocytes % (Manual) 5, Eosinophils % (Manual) 0, Basophils % (Manual) 0, Band Neutrophils 1, Blood Morphology Comment NORMAL, Sodium Level 142, Potassium Level 3.9, Chloride Level 108H, Carbon Dioxide Level 22, Anion Gap 12, Blood Urea Nitrogen 20H, Creatinine 1.25, Estimat Glomerular Filtration Rate > 60, BUN/Creatinine Ratio 16, Glucose Level 118H, Lactic Acid Level 0.97, Calcium Level 9.8, Corrected Calcium , Magnesium Level 2.0, Total Bilirubin 0.9, Aspartate Amino Transf (AST/SGOT) 19, Alanine Aminotransferase (ALT/SGPT) 29, Alkaline Phosphatase 77, Total Protein 7.7, Albumin 4.7H, Amylase Level 73, Lipase 35, Serum Alcohol < 10 06/08/18 21:18: Glucometer 116H 06/08/18 21:35: Urine Color YELLOW, Urine Clarity CLEAR, Urine pH 5, Urine Specific [place] 1.020, Urine Protein 1+H, Urine Glucose (UA) NEGATIVE, Urine Ketones 1+H, Urine Nitrite NEGATIVE, Urine Bilirubin NEGATIVE, Urine Urobilinogen NORMAL, Urine Leukocyte Esterase 2+H, Urine RBC (Auto) NEGATIVE, Urine RBC RARE, Urine WBC 2-5 , Urine Crystals NONE, Urine Bacteria NEGATIVE, Urine Casts NONE, Urine Mucus LARGEH, Urine Culture Indicated NO, Urine Opiates Screen NEGATIVE, Urine Oxycodone Screen NEGATIVE, Urine Methadone Screen NEGATIVE, Urine Propoxyphene Screen NEGATIVE, Urine Barbiturates Screen NEGATIVE, Ur Tricyclic Antidepressants Screen NEGATIVE, Urine Phencyclidine Screen NEGATIVE, Urine Amphetamines Screen NEGATIVE, Urine Methamphetamines Screen NEGATIVE, Urine Benzodiazepines Screen NEGATIVE, Urine Cocaine Screen NEGATIVE, Urine Cannabinoids Screen NEGATIVE 06/09/18 04:45: White Blood Count 7.6, Red Blood Count 4.91, Hemoglobin 14.5, Hematocrit 41, Mean Corpuscular Volume 84, Mean Corpuscular Hemoglobin 30, Mean Corpuscular Hemoglobin Concent 35, Red Cell Distribution Width 13.8, Platelet Count 176, Mean Platelet Volume 9.8, Neutrophils (%) (Auto) 73, Lymphocytes (%) (Auto) 15, Monocytes (%) (Auto) 11, Eosinophils (%) (Auto) 1, Basophils (%) (Auto) 0, Neutrophils # (Auto) 5.6, Lymphocytes # (Auto) 1.1, Monocytes # (Auto) 0.9, Eosinophils # (Auto) 0.1, Basophils # (Auto) 0.0, Sodium Level 140, Potassium Level 3.9, Chloride Level 110H, Carbon Dioxide Level 22, Anion Gap 8, Blood Urea Nitrogen 16, Creatinine 1.14, Estimat Glomerular Filtration Rate > 60, BUN/ Creatinine Ratio 14, Glucose Level 124H, Calcium Level 8.7, Corrected Calcium 8.9, Total Bilirubin 0.8, Aspartate Amino Transf (AST/SGOT) 15, Alanine Aminotransferase (ALT/SGPT) 23, Alkaline Phosphatase 61, Total Protein 6.1L, Albumin 3.8 Microbiology 06/08/18 Influenza Types A,B Antigen (GARY) - Final, Complete Assessment/Plan Assessment/Plan Admission Diagonsis Abdominal pain R/O appendicitis Admission Status: Observation Assessment/Plan Abdominal pain Intractable nausea and vomiting Diarrhea Elevated WBC Pt had CT which was basically read as normal, no appendicolith and no signs of inflammation. His WBC came down from 11.6 to 7.6(normal) this am. Pt is being worked up as an outpt and probably will be getting his GB removed. He does not have appendicitis and does not need surgery today. He should get stool studies done; diarrhea could be from the GB but must rule out bacteria, etc. He should increase fluids at home and increase diet as tolerated. Pt told to f/u with Dr. Tariq. Clinical Quality Measures DVT/VTE Risk/Contraindication: Risk Factor Score Per Nursin RFS Level Per Nursing on Admit: 1=Low/No VTE PPX ABNER TURPIN DO Jun 09, 2018 12:00
--- NOTE | 2018-06-09 12:08 | Discharge Inst-Surgical ---
Discharge Inst-Surgical Depart Medication/Instructions New, Converted or Re-Newed RX: Other (No rx needed) Patient Instructions Follow up Appt: Make appointment for 1 week. Instructions: No strenuous activity. May shower or take a bath. Symptoms to Report: Appetite Changes, Extremity Discoloration, Numbness/Tingling, Swelling Increased , Bleeding Excessive, Eyesight Changes, Pain Increased, Urine Color Change, Constipation(Persistent), Fever over 101 degree F, Pain/Pressure in chest, Urinating Difficulty, Cough Up/Vomit Blood, Heart Beat Irreg/Pounding, Pain/ Pressure in jaw, Cramps in feet or legs, Lightheadedness, Pain/Pressure in shoulder, Diarrhea(Persistent), Memory Changes Suddenly, Questions/Concerns, Weight gain consecutive days, Dizziness/Fainting, Nausea/Vomiting, Shortness of Breath, Weight gain over 2 pounds If questions or concerns contact your physician Or seek help at emergency department. Activity Activity as Tolerated: Yes Driving Instructions: You May Drive Diet Discharge Diet: No Restrictions Diet After 24 Hours: Clear Liquid if Nauseous If Any Problems/Questions/Issu: Contact Your Physician Skin/Wound Care Infection Signs and Symptoms: Increased Redness, Foul Odor of Wound, Increased Drainage, Skin Itchy or Has a Rash, Increased Swelling, Temperature Above 101 F KOMAL TURPIN DO Jun 09, 2018 12:08
[2018-06-09 14:00] VITALS: BP 113/68
== END 2018-06-09 14:20 | disposition home or self-care (01) ==
LOC: EDUNIT# 20:40 → ER 20:41 → 4TH 06-09 00:02
PROVIDERS: ADMIT Surgery; ATTEND Surgery
DX: E86.0 Dehydration (principal); K52.9 Noninfective gastroenteritis and colitis, unspecified; K21.9 Gastro-esophageal reflux disease without esophagitis; K44.9 Diaphragmatic hernia without obstruction or gangrene; Z79.899 Other long term (current) drug therapy
CPT/HCPCS: 36415; 74022; 74177; 80053; 80306; 80320; 81000; 82150; 82962; 83605; 83690; 83735; 85007; 85025; 85027; 87040; 87804; 93005; 93041; G0378

== ENCOUNTER 2018-06-16 10:46 | Outpatient (CLI) | payer MEDICAID ==
[~2018-06-16] VITALS: Ht 175.3 cm; Wt 76.7 kg
[~2018-06-16 10:46] MED LIST changes: +SUCR1TAB36 PO; +TR1C15 TOP
[2018-06-17] MEDS ORDERED: DOCU-143 PO (11:10)
[2018-06-17] MEDS ORDERED: ACHD5005 PO (11:10)
== END 2018-06-16 13:05 | disposition home or self-care (01) ==
LOC: PREOP 10:46
PROVIDERS: ATTEND Surgery
DX: Z01.818 Encounter for other preprocedural examination (principal)

== ENCOUNTER 2018-06-17 08:54 | Day surgery (SDC) | payer BC, MEDICAID ==
[~2018-06-17] VITALS: Ht 175.3 cm; Wt 76.7 kg
[2018-06-17] MEDS ORDERED: DEXAMETHASONE 10 MG/ML (DECADRON) 1 ML VIAL ONE (09:07)
[2018-06-17] MEDS ORDERED: ONDANSETRON 4 MG/2 ML (SDV) Z0FRAN ONE (09:07)
[2018-06-17] MEDS ORDERED: fentaNYL INJECTION 100 MCG/2 ML AMP ONE ×3 (09:07→11:29)
[2018-06-17] MEDS ORDERED: proPOfol 200 MG/20 ML (DIPRIVAN) VIAL IV ONE ×2 (09:07→10:42)
[2018-06-17] MEDS ORDERED: SEVOFLURANE (ULTANE) 15 ML INHAL SOLN ONE ×2 (09:07→10:42)
[2018-06-17] MEDS ORDERED: LIDOCAINE PF 2% 5 ML (XYLOCAINE) VIAL ONE (09:07)
[2018-06-17] MEDS ORDERED: ROCURONIUM 10 MG/ML 5 ML SYRINGE IV ONE (09:07)
[2018-06-17] MEDS ORDERED: MIDAZOLAM 2 MG/2 ML (VERSED) VIAL ONE ×2 (09:07→09:56)
[2018-06-17] MEDS ORDERED: BUPIVACAINE 0.5% 30 ML (SENSORCAINE) VIAL ONE (09:12)
[2018-06-17] MEDS ORDERED: LIDOCAINE 1% INJ 20 ML 20 ML VIAL ONE (09:12)
[2018-06-17 09:15] VITALS: BP 118/90
[2018-06-17] MEDS ORDERED: CLINDAMYCIN 900 MG/50 ML IVPB 50 ML IV ONE (09:30)
--- NOTE | 2018-06-17 09:31 | Progress Note-Pre Operative ---
Pre-Operative Progress Note H&P Reviewed The H&P was reviewed, patient examined and no changes noted. Date Seen by Provider: Jun 17, 2018 Time Seen by Provider: 09: Date H&P Reviewed: Jun 17, 2018 Time H&P Reviewed: 09:31 Pre-Operative Diagnosis: ruq abdominal pain, dilated appendix AMELIA FELIX DO Jun 17, 2018 09:31
[2018-06-17] MEDS: LACTATED RINGERS 1,000 ML IV PRN ×2 (09:40→10:38)
[2018-06-17] MEDS ORDERED: CLINDAMYCIN 600 MG/50 ML IVPB 50 ML IV ONE ×2 (09:56→10:00)
[2018-06-17] MEDS ORDERED: FAMOTIDINE 20MG/2ML IV (PEPCID) ONE (09:56)
[2018-06-17] MEDS ORDERED: FAMOTIDINE 20MG/2ML IV (PEPCID) IVP ONE (10:00)
[2018-06-17] MEDS ORDERED: MIDAZOLAM 2 MG/2 ML (VERSED) VIAL IVP ONE (10:00)
[2018-06-17] MEDS ORDERED: KETOROLAC 30 MG/ML VIAL ONE (11:05)
[2018-06-17] MEDS ORDERED: GLYCOPYRROLATE 0.2 MG/ML (ROBINUL) 2 ML VIAL ONE (11:07)
[2018-06-17] MEDS ORDERED: NEOSTIGMINE 1 MG/ML 5 ML SYRINGE ONE (11:07)
--- NOTE | 2018-06-17 11:09 | Progress Note-Post Operative ---
Post-Operative Progess Note Surgeon (s)/Air Battle Manager (s) Surgeon AMELIA FELIX DO Air Battle Manager: Dr. Lovelace Pre-Operative Diagnosis ruq abdominal pain, dilated appendix Post-Operative Diagnosis same Procedure & Operative Findings Date of Procedure 06/17/18 Procedure Performed/Findings lap dom c ioc, appendectomy Anesthesia Type gen Estimated Blood Loss Estimated blood loss (mL): min Specimens/Packing Specimens Removed gallbladder, appendix AMELIA FELIX DO Jun 17, 2018 11:09
[2018-06-17] MEDS ORDERED: ACHD5005 PO (11:10)
[2018-06-17] MEDS ORDERED: DOCU-143 PO (11:10)
--- NOTE | 2018-06-17 11:11 | Discharge Inst-Simple/Standard ---
Discharge Inst-Standard Discharge Medications New, Converted or Re-Newed RX: RX on Chart Patient Instructions/Follow Up Plan of Care/Instructions/FU: 2 weeks [place] Activity as Tolerated: No Discharge Diet: Regular Diet Other Inst to Patient Follow up Appt: Make appointment for 2 weeks. Instructions: No lifting greater than 10 pounds. No strenuous activity. May shower in 24 hours, no tub bath or soaking. Use incentive spirometer at home as directed. No Smoking Skin/Wound Care: You have special glue over incisions it will fall off on its own. Symptoms to Report: Appetite Changes, Extremity Discoloration, Numbness/Tingling, Swelling Increased , Bleeding Excessive, Eyesight Changes, Pain Increased, Urine Color Change, Constipation(Persistent), Fever over 101 degree F, Pain/Pressure in chest, Urinating Difficulty, Cough Up/Vomit Blood, Heart Beat Irreg/Pounding, Pain/ Pressure in jaw, Vaginal Bleeding Increase, Cramps in feet or legs, Lightheadedness, Pain/Pressure in shoulder, Diarrhea(Persistent), Memory Changes Suddenly, Questions/Concerns, Weight gain consecutive days, Dizziness/ Fainting, Nausea/Vomiting, Shortness of Breath, Weight gain over 2 pounds. If eyes or skin turn yellow notify physician. If questions or concerns contact your physician Or seek help at emergency department. AMELIA FELIX DO Jun 17, 2018 11:11
[2018-06-17] MEDS ORDERED: fentaNYL INJECTION 100 MCG/2 ML AMP IVP ONE (11:30)
[2018-06-17] MEDS ORDERED: MEPERIDINE (DEMEROL) INJ 50 MG/ML IVP ONE (11:30)
[2018-06-17] MEDS ORDERED: ONDANSETRON 4 MG/2 ML (SDV) Z0FRAN IVP PRN (11:30)
[2018-06-17] MEDS ORDERED: PROMETHAZINE INJ 25 MG/ML (PHENERGAN) AMP IVP ONE (11:30)
--- NOTE | 2018-06-17 11:30 | Diagnostic Imaging Report ---
INDICATION: Undergoing cholecystectomy. Right upper quadrant pain, diarrhea. FINDINGS: Multiple intraoperative cholangiogram images are submitted. There is cannulation of the extra hepatic biliary tree. Images demonstrate contrast opacification of the biliary system. Biliary tree is not significantly dilated. There was no persistent filling defect to indicate a retained stone. Flow was present into the duodenum. IMPRESSION: Negative laparoscopic cholangiogram. Dictated by: Dictated on workstation # [id number]
[2018-06-17 12:35] VITALS: BP 146/91
[2018-06-17 13:05] VITALS: BP 143/92
[2018-06-17] MEDS ORDERED: HYDROcodone/APAP 5 MG/325 MG (LORTAB) TAB PO ONE (13:15)
[2018-06-17] MEDS ORDERED: HYDROcodone/APAP 5 MG/325 MG (LORTAB) TAB ONE (13:18)
--- NOTE | 2018-06-17 13:31 | Anesthesia-General Post-Op ---
General Patient Condition Mental Status/LOC: Same as Preop Cardiovascular: Satisfactory Nausea/Vomiting: Absent Respiratory: Satisfactory Pain: Controlled Complications: Absent Post Op Complications Complications None Follow Up Care/Instructions Patient Instructions None needed. Anesthesia/Patient Condition Patient Condition Patient is doing well, no complaints, stable vital signs, no apparent adverse anesthesia problems. No complications reported per nursing. ROMA MONACO CRNA Jun 17, 2018 13:31
[2018-06-17 13:35] VITALS: BP 123/70
--- OUTSIDE RECORDS SUMMARY | 2018-06-17 13:53 | XMS REPORT | Continuity of Care Document ---
Author Author [facility] Address Unknown Phone Unavailable Allergies Active Description Code Type Severity Reaction Onset Reported/Identified Relationship to Patient Clinical Status Yes BENADRYL UNKNOWN UNKNOWN Yes IBUPROFEN UNKNOWN UNKNOWN Yes PENICILLINS MODERATE OTHER Yes Benadryl Drug Allergy N/A N/A 08/11/2013 Yes ibuprofen Drug Allergy N/A N/A 08/11/2013 Yes Penicillins Drug Allergy N/A N/A 08/11/2013 Yes No Allergy Information Available [id number] Drug Allergy Unknown N/A 2017 Yes diphenhydramine [id number] Drug Allergy Unknown RASH 04/15/2018 Yes ibuprofen [id number] Drug Allergy Unknown RASH 04/15/2018 Yes Penicillins [id number] Drug Allergy Unknown ANAPHYLAXIS 04/15/2018 Medications Medication [...] K29.00 ACUTE GASTRITIS WITHOUT BLEEDING 04/14/2018 AMELIA FELXI DO Ot Z01.818 ENCOUNTER FOR OTHER PREPROCEDURAL [...] Ot R31.9 HEMATURIA, UNSPECIFIED 04/23/2018 LINWOOD LOCKWOOD MD Ot Z87.891 PERSONAL HISTORY OF NICOTINE DEPENDENCE 04/30/2018 AMELIA FELIX DO Ot F17.210 NICOTINE DEPENDENCE, CIGARETTES, UNCOMPL 04/30/2018 AMELIA FELIX DO Ot K21.0 GASTRO-ESOPHAGEAL REFLUX DISEASE WITH ES 04/30/2018 AMELIA FELIX DO Ot K44.9 DIAPHRAGMATIC HERNIA WITHOUT OBSTRUCTION 04/30/2018 AMELIA FELIX DO Ot K92.1 MELENA 04/30/2018 AMELIA FELIX DO Ot R19.7 DIARRHEA, UNSPECIFIED 06/09/2018 GROVER TURPIN DOIC B Ot E86.0 DEHYDRATION 06/09/2018 GROVER TURPIN DOIC B Ot K21.9 GASTRO-ESOPHAGEAL REFLUX DISEASE WITHOUT 06/09/2018 GROVER TURPIN DOIC B Ot K44.9 DIAPHRAGMATIC HERNIA WITHOUT OBSTRUCTION 06/09/2018 GROVER TURPIN DOIC B Ot K52.9 NONINFECTIVE GASTROENTERITIS AND COLITIS 06/09/2018 DYANA GARCIA KOMAL B Ot Z79.899 OTHER HEALTHCARE RISK CONTROL CONSULTANT (CURRENT) DRUG THERAPY 06/17/2018 SHAHBAZ CROWDER ECHOCARDIOGRAPH TECHNICIAN Ot K92.0 HEMATEMESIS 06/17/2018 SHAHBAZ CROWDER ECHOCARDIOGRAPH TECHNICIAN Ot K92.1 MELENA 06/17/2018 SHAHBAZ CROWDERP Ot R19.7 DIARRHEA, UNSPECIFIED 06/17/2018 SHAHBAZ CROWDER ECHOCARDIOGRAPH TECHNICIAN Ot K92.0 HEMATEMESIS 06/17/2018 SHAHBAZ CROWDERP Ot K92.1 MELENA 06/17/2018 SHAHBAZ CROWDER Ot R19.7 DIARRHEA, UNSPECIFIED Procedures Code [place] [address] INFLUENZA A & B (IN-HOUSE) 08/11/2013 51737 ROUTINE VENIPUNCTURE 08/16/2014 60973 URINE DRUG SCREEN (IN-HOUSE ) 08/16/2014 63455 TSH 08/16/2014 34012 A1C (IN-HOUSE) 08/16/2014 Results Test Result Range Amylase - 01/25/17 20:56 Amylase 56 U/L 20-100 CMP - 07/17/17 09:49 GLUCOSE 64 mg/dL 65-99 UREA NITROGEN (BUN) 18 mg/dL 7-25 CREATININE 1.06 mg/dL 0.60-1.35 eGFR NON-AFR. [place] 91 mL/min/1.73m2 > OR=60 eGFR 106 mL/min/1.73m2 [...] 5-8.5 Urine-Protein Negative Negative Urine-RBC 0-2/HPF Urine-Specific Shoshone >=1.030 1.000-1.030 Urine-WBC 2-5/HPF Urobilinogen 0.2 0.2-1.0 [...] culture - 04/21/18 22:50 Bacterial urine culture [id number] NRG COLONY COUNT . NRG FTX;REPORTABLE 10,000 [...] NRG Blood erythrocyte morphology finding identification NORMAL NRG Serum heterophile antibody titer - 04/21/18 23:00 [...] INFLUENZA A AND B ANTIGENS BY IA [facility] Comprehensive metabolic panel - 04/21/18 [...] or plasma urea nitrogen/creatinine mass ratio 15 [facility] Serum or plasma creatinine measurement with calculation of estimated glomerular filtration rate > [facility] Serum or plasma glucose measurement [...] culture - 04/21/18 23:00 Bacterial blood culture [facility] Bacterial blood culture - 04/21/18 23:15 Bacterial blood culture [facility] Complete blood count (CBC) with automated white [...] plasma calcium measurement (mass/volume) 9.0 mg/dL 8.5-10.1 Complete blood count (CBC) with automated white blood cell (WBC) differential - 06/08/18 21:17 Blood leukocytes automated count (number/volume) 11.6 10*3/uL 4.3-11.0 Blood erythrocytes automated count (number/volume) 5.61 10*6/uL 4.35-5.85 Venous blood hemoglobin measurement (mass/volume) 16.4 g/dL 13.3-17.7 Blood hematocrit (volume fraction) 46 % 40-54 Automated erythrocyte mean corpuscular volume 82 [foz_us] 80-99 Automated erythrocyte mean corpuscular hemoglobin (mass per erythrocyte) 29 pg 25-34 Automated erythrocyte mean corpuscular hemoglobin concentration measurement ( mass/volume) 36 g/dL 32-36 Automated erythrocyte distribution width ratio 13.7 % 10.0-14.5 Automated blood platelet count (count/volume) 212 10*3/uL 130-400 Automated blood platelet mean volume measurement 9.8 [foz_us] 7.4-10.4 Automated blood neutrophils/100 leukocytes 83 % 42-75 Automated blood lymphocytes/100 leukocytes 7 % 12-44 Blood monocytes/100 leukocytes 10 % 0-12 Automated blood eosinophils/100 leukocytes 0 % 0-10 Automated blood basophils/100 leukocytes 0 % 0-10 Blood neutrophils automated count (number/volume) 9.7 10*3 1.8-7.8 Blood lymphocytes automated count (number/volume) 0.8 10*3 1.0-4.0 Blood monocytes automated count (number/volume) 1.1 10*3 0.0-1.0 Automated eosinophil count 0.0 10*3/uL 0.0-0.3 Automated blood basophil count (count/volume) 0.0 10*3/uL 0.0-0.1 Blood lactic acid measurement (moles/volume) - 06/08/18 21:17 Blood lactic acid measurement (moles/volume) 0.97 mmol/L 0.50-2.00 Serum or plasma ethanol measurement (mass/volume) - 06/08/18 21:17 Serum or plasma ethanol measurement (mass/volume) < mg/dL <10 Comprehensive metabolic panel - 06/08/18 21:17 Serum or plasma sodium measurement (moles/volume) 142 mmol/L 135-145 Serum or plasma potassium measurement (moles/volume) 3.9 mmol/L 3.6-5.0 Serum or plasma chloride measurement (moles/volume) 108 mmol/L 98-107 Carbon dioxide 22 mmol/L 21-32 Serum or plasma anion gap determination (moles/volume) 12 mmol/L 5-14 Serum or plasma urea nitrogen measurement (mass/volume) 20 mg/dL 7-18 Serum or plasma creatinine measurement (mass/volume) 1.25 mg/dL 0.60-1.30 Serum or plasma urea nitrogen/creatinine mass ratio 16 NRG Serum or plasma creatinine measurement with calculation of estimated glomerular filtration rate > NRG Serum or plasma glucose measurement (mass/volume) 118 mg/dL 70-105 Serum or plasma calcium measurement (mass/volume) 9.8 mg/dL 8.5-10.1 Serum or plasma total bilirubin measurement (mass/volume) 0.9 mg/dL 0.1-1.0 Serum or plasma alkaline phosphatase measurement (enzymatic activity/volume) 77 U/L 40-136 Serum or plasma aspartate aminotransferase measurement (enzymatic activity/ volume) 19 U/L 5-34 Serum or plasma alanine aminotransferase measurement (enzymatic activity/volume ) 29 U/L 0-55 Serum or plasma protein measurement (mass/volume) 7.7 g/dL 6.4-8.2 Serum or plasma albumin measurement (mass/volume) 4.7 g/dL 3.2-4.5 Magnesium - 06/08/18 21:17 Magnesium 2.0 mg/dL 1.8-2.4 Serum or plasma amylase measurement (enzymatic activity/volume) - 06/08/18 21: 17 Serum or plasma amylase measurement (enzymatic activity/volume) 73 U /L 25-125 Lipase - 06/08/18 21:17 Lipase 35 U/L 8-78 Blood manual differential performed detection - 06/08/18 21:17 Blood monocytes/100 leukocytes 5 % NRG Manual blood segmented neutrophils/100 leukocytes 89 % NRG Blood band neutrophils/100 leukocytes 1 % NRG Manual blood lymphocytes/100 leukocytes 5 % NRG Manual eosinophils/100 leukocytes in nose 0 % NRG Manual blood basophils/100 leukocytes 0 % NRG Blood erythrocyte morphology finding identification NORMAL NRG Bacterial blood culture - 06/08/18 21:17 Bacterial blood culture NG NRG Capillary blood glucose measurement by glucometer (mass/volume) - 06/08/18 21: 18 Capillary blood glucose measurement by glucometer (mass/volume) 116 mg/dL 70-110 Influenza virus A and B antigen detection - 06/08/18 21:34 FLU RESULT NEGATIVE FOR INFLUENZA A AND B ANTIGENS BY IA NRG Complete urinalysis with reflex to culture - 06/08/18 21:35 Urine color determination YELLOW NRG Urine clarity determination CLEAR NRG Urine pH measurement by test strip 5 5-9 Specific gravity of urine by test strip 1.020 1.016- 1.022 Urine protein assay by test strip, semi-quantitative 1+ NEGATIVE Urine glucose detection by automated test strip NEGATIVE NEGATIVE Erythrocytes detection in urine sediment by light microscopy NEGATIVE NEGATIVE Urine ketones detection by automated test strip 1+ NEGATIVE Urine nitrite detection by test strip NEGATIVE NEGATIVE Urine total bilirubin detection by test strip NEGATIVE NEGATIVE Urine urobilinogen measurement by automated test strip (mass/volume) NORMAL NORMAL Urine leukocyte esterase detection by dipstick 2+ NEGATIVE Automated urine sediment erythrocyte count by microscopy (number/high power field) RARE NRG Automated urine sediment leukocyte count by microscopy (number/high power field ) [HPF] NRG Bacteria detection in urine sediment by light microscopy NEGATIVE NRG Crystals detection in urine sediment by light microscopy NONE NRG Casts detection in urine sediment by light microscopy NONE NRG Mucus detection in urine sediment by light microscopy LARGE NRG Complete urinalysis with reflex to culture NO NRG Urine drug screening test - 06/08/18 21:35 Urine phencyclidine detection by screening method NEGATIVE NEGATIVE Urine benzodiazepines detection by screening method NEGATIVE NEGATIVE Urine cocaine detection NEGATIVE NEGATIVE Urine amphetamines detection by screening method NEGATIVE NEGATIVE Urine methamphetamine detection by screening method NEGATIVE NEGATIVE Urine cannabinoids detection by screening method NEGATIVE NEGATIVE Urine opiates detection by screening method NEGATIVE NEGATIVE Urine barbiturates detection NEGATIVE NEGATIVE Screening urine tricyclic antidepressants detection NEGATIVE NEGATIVE Urine methadone detection by screening method NEGATIVE NEGATIVE Urine oxycodone detection NEGATIVE NEGATIVE Urine propoxyphene detection NEGATIVE NEGATIVE Bacterial blood culture - 06/08/18 21:45 Bacterial blood culture NG NRG Complete blood count (CBC) with automated white blood cell (WBC) differential - 06/09/18 04:45 Blood leukocytes automated count (number/volume) 7.6 10*3/uL 4.3-11.0 Blood erythrocytes automated count (number/volume) 4.91 10*6/uL 4.35-5.85 Venous blood hemoglobin measurement (mass/volume) 14.5 g/dL 13.3-17.7 Blood hematocrit (volume fraction) 41 % 40-54 Automated erythrocyte mean corpuscular volume 84 [foz_us] 80-99 Automated erythrocyte mean corpuscular hemoglobin (mass per erythrocyte) 30 pg 25-34 Automated erythrocyte mean corpuscular hemoglobin concentration measurement ( mass/volume) 35 g/dL 32-36 Automated erythrocyte distribution width ratio 13.8 % 10.0-14.5 Automated blood platelet count (count/volume) 176 10*3/uL 130-400 Automated blood platelet mean volume measurement 9.8 [foz_us] 7.4-10.4 Automated blood neutrophils/100 leukocytes 73 % 42-75 Automated blood lymphocytes/100 leukocytes 15 % 12-44 Blood monocytes/100 leukocytes 11 % 0-12 Automated blood eosinophils/100 leukocytes 1 % 0-10 Automated blood basophils/100 leukocytes 0 % 0-10 Blood neutrophils automated count (number/volume) 5.6 10*3 1.8-7.8 Blood lymphocytes automated count (number/volume) 1.1 10*3 1.0-4.0 Blood monocytes automated count (number/volume) 0.9 10*3 0.0-1.0 Automated eosinophil count 0.1 10*3/uL 0.0-0.3 Automated blood basophil count (count/volume) 0.0 10*3/uL 0.0-0.1 Comprehensive metabolic panel - 06/09/18 04:45 Serum or plasma sodium measurement (moles/volume) 140 mmol/L 135-145 Serum or plasma potassium measurement (moles/volume) 3.9 mmol/L 3.6-5.0 Serum or plasma chloride measurement (moles/volume) 110 mmol/L 98-107 Carbon dioxide 22 mmol/L 21-32 Serum or plasma anion gap determination (moles/volume) 8 mmol/L 5-14 Serum or plasma urea nitrogen measurement (mass/volume) 16 mg/dL 7-18 Serum or plasma creatinine measurement (mass/volume) 1.14 mg/dL 0.60-1.30 Serum or plasma urea nitrogen/creatinine mass ratio 14 NRG Serum or plasma creatinine measurement with calculation of estimated glomerular filtration rate > NRG Serum or plasma glucose measurement (mass/volume) 124 mg/dL 70-105 Serum or plasma calcium measurement (mass/volume) 8.7 mg/dL 8.5-10.1 Serum or plasma total bilirubin measurement (mass/volume) 0.8 mg/dL 0.1-1.0 Serum or plasma alkaline phosphatase measurement (enzymatic activity/volume) 61 U/L 40-136 Serum or plasma aspartate aminotransferase measurement (enzymatic activity/ volume) 15 U/L 5-34 Serum or plasma alanine aminotransferase measurement (enzymatic activity/volume ) 23 U/L 0-55 Serum or plasma protein measurement (mass/volume) 6.1 g/dL 6.4-8.2 Serum or plasma albumin measurement (mass/volume) 3.8 g/dL 3.2-4.5 CALCIUM CORRECTED 8.9 mg/dL 8.5-10.1 Encounters ACCT No. Visit Date/Time Discharge Status Pt. Type Provider Facility Loc./Unit Complaint [id number] 10/02/2014 14:57:00 10/02/2014 23:59:59 CLS Outpatient JESUS DA SILVA APRN [id number] 08/16/2014 09:49:00 08/16/2014 23:59:59 CLS Outpatient KHADJIAH COYLE DO [id number] 04/12/2014 14:51:00 04/12/2014 23:59:59 CLS Outpatient JESUS DA SILVA APRN [id number] 10/26/2013 07:49:00 10/26/2013 23:59:59 CLS Outpatient DIANA SESAY DDS [id number] 08/29/2013 15:38:00 08/29/2013 23:59:59 CLS Outpatient KHADIJAH COYLE DO [id number] 08/11/2013 14:18:00 08/11/2013 23:59:59 [place] [id number] 01/15/2018 16:40:00 01/15/2018 23:59:59 CLS Outpatient [facility]USH[facility]FFMAN [facility] [id number] 07/17/2017 09:20:00 Document Registration [id number] 03/12/2018 18:13:00 Document Registration [id number] 03/12/2018 18:13:00 03/12/2018 21:40:00 DIS Outpatient Reji [facility] [id number] 01/25/2017 20:07:00 01/25/2017 22:10:00 DIS Outpatient KENNEDI MIRANDA [id number] 01/25/2017 20:57:33 Document Registration [id number] 06/16/2018 10:46:00 06/16/2018 13:05:00 DIS Outpatient AMELIA FELIX DO [facility] PREOP LAPAROSCOPIC PARK APPY [id number] 06/09/2018 00:02:00 06/09/2018 14:20:00 DIS Inpatient JOSTINSEAN KOMAL GARCIA [facility] 4TH ABDOMINAL PAIN; DEHYDRATION; N/V/D [id number] 04/22/2018 01:00:00 04/23/2018 14:05:00 DIS Inpatient MANDIE BANEGAS, LINWOOD Juarez [facility] 4TH PNA,UTI,SEPSIS [id number] 04/20/2018 09:23:00 04/20/2018 12:10:00 DIS Outpatient AMELIA FELIX DO [facility] ENDO DIARRHEA/BLOOD IN STOOL/ EPIGASTRIC ABD PAIN [id number] 04/14/2018 05:40:00 04/14/2018 15:00:00 DIS Outpatient AMELIA FELIX DO [facility] PREOP COLONOSCOPY/EGD [id number] 04/01/2018 10:18:00 04/01/2018 23:59:59 CLS Outpatient SHAHBAZ CROWDER [facility] CARD BLOOD IN STOOL, HEMATEMESIS W/ NAUSEA [id number] 06/17/2018 08:54:00 ACT Outpatient AMELIA FELIX DO [facility] SDC DILATED APPENDIX, RT. UPPER QUAD. PAIN
[2018-06-17 14:00] VITALS: BP 123/70
--- NOTE | 2018-06-17 15:45 | OPERATIVE REPORT ---
DATE OF SERVICE: 06/17/2018 PREOPERATIVE DIAGNOSES: Right upper quadrant abdominal pain, dilated appendix. POSTOPERATIVE DIAGNOSES: Right upper quadrant abdominal pain, dilated appendix. PROCEDURES: Laparoscopic cholecystectomy with intraoperative cholangiogram, appendectomy. SURGEON: Amelia Tariq DO CANVASS MANAGER: Dr. Lovelace, assisted in retraction, dissection and closure. ANESTHESIA: General. ESTIMATED BLOOD LOSS: Minimal. COMPLICATIONS: None. SPECIMENS: Gallbladder and appendix. INDICATION: The patient is a 33-year-old male, who has been having right upper quadrant abdominal pain. His symptoms are suggestive of gallbladder disease. He had a normal gallbladder ultrasound and had a HIDA scan with ejection fraction of 41%. He has had no improvement on PPIs. He also had a recent CT scan, which demonstrated a slightly dilated appendix as in the right upper quadrant. The patient was explained the risks and benefits of procedures and wished to proceed with procedures. Consent was signed on the chart. PROCEDURE IN DETAIL: The patient was taken to the operating suite. He was prepped and draped in sterile fashion. Surgical pause was performed. Morteza technique was used to enter the abdomen just above the umbilicus. A 0 Vicryl was placed on the fascia in a rwdkaq-rp-[id number] fashion for closure at the end of the case. A balloon trocar was inserted in the abdomen. Pneumoperitoneum was achieved. Under direct visualization of the laparoscope, a 5 mm trocar was then placed in the subxiphoid region and two 5 mm trocars were placed in the right upper quadrant. The colon was located and ran to the cecum, which was in the right upper quadrant. The appendix did appear dilated and was grasped, elevated and dissected around the base of the appendix. An Endo-SARAHY 2.5 stapler was then fired across the base of the appendix and an Endo-SARAHY 2.0 reload was fired across the mesoappendix. This was then placed in the abdomen for removal at the end of the case. The gallbladder was then grasped and elevated. The cystic artery was then dissected out. Clips were placed on the proximal and distal portion of the cystic artery, which had bifurcated, so this was also clipped in a proximal and distal portion of both branches. The cystic duct had a clip placed on the distal portion of the cystic duct. The cystic duct was then partially transected. Arrow catheter was inserted into the duct, in which, balloon will not hold in place; therefore a clip was placed on the cystic duct. Cholangiogram was then performed. There were no filling defects. Contrast made its way into the duodenum without difficulty. The clip was then removed following the catheter was removed. Clips were placed on the proximal portion of the cystic duct and the cystic duct and artery branches were transected completely. Hook cautery was used to dissect gallbladder from the gallbladder fossa achieving hemostasis. A small hole was made in the gallbladder, but then, I saw a small amount of bile did drain. Gallbladder was completely removed achieving hemostasis. The gallbladder and appendix were placed in an Endobag and removed through 12 mm trocar site. Copious amounts of irrigation was used to irrigate the abdomen and suction. The abdomen was then desufflated. The trocars were removed. The 0 Vicryl was placed in a [id number]-jj-klqjj fashion earlier was then used to close the 12 mm fascial defect. The skin was then closed using 4-0 Monocryl in a subcuticular fashion. The abdomen was then washed and dried and Skin Affix was placed over the incisions. The patient tolerated the procedure well without any complications and taken to the recovery room in stable condition. Job ID: [id number] DocumentID: [id number] Dictated Date: 06/17/2018 11:29:29 Cafeteria Food Server Date: 06/17/2018 15:44:21 Dictated By: AMELIA TRAIQ DO
== END 2018-06-17 14:20 | disposition home or self-care (01) ==
LOC: SDC 08:54
PROVIDERS: ATTEND Surgery
DX: K81.1 Chronic cholecystitis (principal); K38.0 Hyperplasia of appendix; Z87.891 Personal history of nicotine dependence; K21.9 Gastro-esophageal reflux disease without esophagitis; F32.9 Major depressive disorder, single episode, unspecified; F41.9 Anxiety disorder, unspecified; F31.9 Bipolar disorder, unspecified; G47.00 Insomnia, unspecified
CPT/HCPCS: 87081; 88304; 94664

== ENCOUNTER 2018-11-03 11:55 | Emergency (ER) | payer BC, MEDICAID ==
[~2018-11-03] VITALS: Ht 170.2 cm; Wt 81.6 kg
[~2018-11-03 11:55] MED LIST changes: +ACHD5005 PO; +DOCU-143 PO
[2018-11-03] MEDS ORDERED: TETANUS,DIPTH,PERTUSS P/F (BOOSTRIX) 0.5 ML VIAL IM ONE (12:10)
--- NOTE | 2018-11-03 12:17 | ED Upper Extremity ---
General Chief Complaint: Laceration Stated Complaint: HAND LACERATION Nursing Triage Note: PT AMBULATED TO ROOM 3 PT HAS SUPERFICIAL LAC TO OUT SIDE OF L PALM FROM TRUCK. NO BLEEDING NOTED Nursing Sepsis Screen: No Definite Risk Source: patient Exam Limitations: no limitations History of Present Illness Date Seen by Provider: Nov 03, 2018 Time Seen by Provider: 12:15 Initial Comments To ER with a laceration to the ulnar side of the hypothenar eminence left hand from unloading a microwave out of his truck. Tetanus is not up-to-date. This occurred just prior to arrival. Onset: just prior to arrival Severity: mild Pain/Injury Location: left hand Modifying Factors: Worse With Movement Allergies and Home Medications Allergies Coded Allergies: Penicillins (Verified Allergy, Unknown, ANAPHYLAXIS, 04/15/18) diphenhydramine (Verified Allergy, Unknown, RASH, 04/15/18) ibuprofen (Verified Allergy, Unknown, RASH, 04/15/18) Home Medications Buspirone HCl 10 Mg Tablet, 10 MG PO BID, (Reported) LAST FILLED #60 04-27-18 Docusate Sodium 100 Mg Capsule, 100 MG PO DAILY Prescribed by: AMELIA FELIX on 06/17/18 1110 Fluoxetine HCl 10 Mg Capsule, 30 MG PO DAILY, (Reported) LAST FILLED #90 18 TAKES 3 (10MG) CAPSULES Hydrocodone Bit/Acetaminophen 1 Tab Tab, 1-2 TAB PO Q6H PRN for PAIN-MODERATE Prescribed by: AMELIA FELIX on 06/17/18 1110 Pantoprazole Sodium 40 Mg Tablet.dr, 40 MG PO DAILY, (Reported) LAST FILLED #30 04-20-18 Quetiapine Fumarate 100 Mg Tablet, 100 MG PO HS, (Reported) LAST FILLED #30 18 Sucralfate 1 Gm Tablet, 1 GM PO ACHS PRN for STOMACH UPSET, (Reported) LAST FILLED #120 03-13-18 Triamcinolone Acet 15 Gm Cr, TOP BID, (Reported) Patient Home Medication List Home Medication List Reviewed: Yes Review of Systems Constitutional: see HPI EENTM: see HPI Respiratory: no symptoms reported Cardiovascular: no symptoms reported Genitourinary: no symptoms reported Musculoskeletal: no symptoms reported Skin: see HPI Psychiatric/Neurological: No Symptoms Reported Past Admooag-Wbcbeu-Rgvvnk Hx Patient Social History Alcohol Use: Denies Use Recreational Drug Use: No Smoking Status: Former Smoker Former Smoker, Quit: Apr 14, 2016 Recent Foreign Travel: No Contact w/Someone Who Travel: No Recent Infectious Disease Expo: No Recent Hopitalizations: No (approx. 1 month ago for pne/sepsis) Physical Abuse: No Sexual Abuse: No Immunizations Up To Date Tetanus Booster (TDap): Unknown Seasonal Allergies Seasonal Allergies: No Past Medical History Surgeries: Yes (lump removed from tongue, egd, colonoscopy) Appendectomy, Gallbladder Respiratory: Yes (PNEUMONIA 04/2018) Pneumonia Cardiac: No Neurological: No Reproductive Disorders: No Sexually Transmitted Disease: No HIV/AIDS: No Genitourinary: Yes Kidney Stones Gastrointestinal: Yes (ONGOING NAUSEA/VOMITING/DIARRHEA) Gastroesophageal Reflux, Esophagitis, Hiatal Hernia Musculoskeletal: No Endocrine: No HEENT: No Cancer: No Psychosocial: Yes (ANGER ISSUES) Sleep Difficulties, Anxiety, Bipolar, Depression Integumentary: No Blood Disorders: No Adverse Reaction/Blood Tranf: No Family Medical History Diabetes mellitus 19 FATHER Diabetes Physical Exam Vital Signs Vital Signs - First Documented 11/03/18 12:06 Temp 97.9 Pulse 75 Resp 18 B/P (MAP) 134/80 (98) Pulse Ox 99 Capillary Refill : Less Than 3 Seconds Height, Weight, BMI Height: 5'7.00" Weight: 180lbs. 0.0oz. 81.726476kn; 25.0 BMI Method:Stated General Appearance: WD/WN, no apparent distress HEENT: PERRL/EOMI, normal ENT inspection Respiratory: no respiratory distress, no accessory muscle use Shoulder: normal inspection, non-tender Elbow/Forearm: normal inspection, non-tender Wrist: Yes normal inspection, Yes non-tender Hand: Left, laceration (1 cm superficial laceration through the dermis but not into the subcutaneous tissue ulnar side left hand) Neurologic/Psychiatric: alert, normal mood/affect, oriented x 3 Skin: normal color, warm/dry Procedure note: this was scrubbed with chlorhexidine/saline solution then closed with skin affix tissue adhesive Progress/Results/Core Measures Results/Orders Vital Signs/I&O 11/03/18 12:06 Temp 97.9 Pulse 75 Resp 18 B/P (MAP) 134/80 (98) Pulse Ox 99 Blood Pressure Mean: 98 Departure Impression Primary Impression: Skin laceration Disposition: 01 HOME, SELF-CARE Condition: Stable Departure-Patient Inst. Decision time for Depature: 12:16 Referrals: NO,LOCAL PHYSICIAN (PCP) Primary Care Physician SHAHBAZ CROWDER (Family) Primary Care Physician Patient Instructions: Laceration Repair With Glue (DC) Add. Discharge Instructions: 1. Allow the glue to follow up on its own in 3-5 days. Do not soak this in water such as a dish sink bathtub or swimming pool for 3-5 days. However you may shower leading water briefly run over this starting tonight. All discharge instructions reviewed with patient and/or family. Voiced understanding. SHANICE PARRISH APRN Nov 03, 2018 12:17
[2018-11-03 12:24] VITALS: BP 134/80
--- OUTSIDE RECORDS SUMMARY | 2018-11-03 13:52 | XMS REPORT | Continuity of Care Document ---
Author Organization Unknown Address Unknown Allergies Active Description Code Type Severity Reaction Onset Reported/Identified Relationship to Patient Clinical Status Yes BENADRYL UNKNOWN UNKNOWN Yes IBUPROFEN UNKNOWN UNKNOWN Yes PENICILLINS MODERATE OTHER Yes Benadryl Drug Allergy N/A N/A 08/11/2013 Yes ibuprofen Drug Allergy N/A N/A 08/11/2013 Yes Penicillins Drug Allergy N/A N/A 08/11/2013 Yes No Allergy Information Available [id number] Drug Allergy Unknown N/A 2017 Yes diphenhydramine [id number] Drug Allergy Unknown RASH 04/15/2018 Yes ibuprofen [id number] Drug Allergy Unknown RASH 04/15/2018 Yes Penicillins [id number] Drug Allergy Unknown ANAPHYLAXIS 04/15/2018 Medications Medication [...] 40 MG (PROTONIX IV) MG 03/12/2018 03/12/2018 ONCE&0 ONDANSETRON VIAL INJ 4 MG/2CC (ZOFRAN 2CC VIAL) MG 03/12/2018 03/12/2018 PRN ONCE GI COCKTAIL SINGLE DOSE LIQ (GRASSHOPPER) ML 03/12/2018 03/12/2018 ONCE&2041 AZITHROMYCIN TAB 500 MG (ZITHROMAX) MG 03/12/2018 [...] 487.1 INFLUENZA WITH OTHER RESPIRATORY MANIFESTATIONS 08/11/2013 TOÑAJESUS HASTINGS APRN 487.1 INFLUENZA WITH OTHER RESPIRATORY MANIFESTATIONS [...] KHADIJAH COYLE DO 462 ACUTE PHARYNGITIS 08/07/2014 TOÑAJESUS HASTINGS APRN 462 ACUTE PHARYNGITIS 08/16/2014 KHADIJAH COYLE DO 300.4 DYSTHYMIC DISORDER 08/16/2014 KHADIJAH COYLE DO 312.34 INTERMITTENT EXPLOSIVE DISORDER [facility]/16/[facility].4 DYSTHYMIC DISORDER 08/16/2014 [facility] 312.34 INTERMITTENT EXPLOSIVE DISORDER 01/25/2017 KENNEDI [...] FOR OTHER PREPROCEDURAL EXAMIN 04/15/2018 AMELIA FELIX DO Ot Z01.818 ENCOUNTER [...] SHAHBAZ CROWDER Ot R19.7 DIARRHEA, UNSPECIFIED 04/23/2018 MANDIE BANEGAS, LINWOOD Juarez Ot A41.9 SEPSIS, UNSPECIFIED ORGANISM 04/23/2018 MANDIE BANEGAS, LINWOOD Juarez Ot F31.9 BIPOLAR DISORDER, UNSPECIFIED 04/23/2018 MANDIE BANEGAS, LINWOOD Juarez Ot F41.9 ANXIETY DISORDER, UNSPECIFIED 04/23/2018 MANDIE BANEGAS, LINWOOD Juarez Ot J18.9 PNEUMONIA, UNSPECIFIED ORGANISM 04/23/2018 MANDIE BANEGAS, LINWOOD Juarez Ot K21.9 GASTRO-ESOPHAGEAL REFLUX DISEASE WITHOUT 04/23/2018 [...] FELIX DO Ot R19.7 DIARRHEA, UNSPECIFIED 06/09/2018 DYANA GARCIA KOMAL B Ot E86.0 DEHYDRATION 06/09/2018 GROVER TURPIN DOIC B Ot K21.9 GASTRO-ESOPHAGEAL REFLUX DISEASE WITHOUT 06/09/2018 GROVER TURPIN DOIC B Ot K44.9 DIAPHRAGMATIC HERNIA WITHOUT OBSTRUCTION 06/09/2018 GROVER TURPIN DOIC B Ot K52.9 NONINFECTIVE GASTROENTERITIS AND COLITIS 06/09/2018 DYANA GARCIA KOMAL B Ot Z79.899 OTHER ASSISTED (CURRENT) DRUG THERAPY 06/09/2018 DELSEAN DO, KOMAL B Ot E86.0 DEHYDRATION 06/09/2018 DYANA GARCIA, KOMAL B Ot K21.9 GASTRO-ESOPHAGEAL REFLUX DISEASE WITHOUT 06/09/2018 DYANA DO, KOMAL B Ot K44.9 DIAPHRAGMATIC HERNIA WITHOUT OBSTRUCTION 06/09/2018 DYANA GARCIA, KOMAL B Ot K52.9 NONINFECTIVE GASTROENTERITIS AND COLITIS 06/09/2018 DYANA GARCIA KOMAL B Ot 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.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 06/16/2018 AMELIA FELIX DO Ot Z01.818 ENCOUNTER FOR OTHER PREPROCEDURAL EXAMIN 06/17/2018 SHAHBAZ CROWDER DIRECTOR OF SCIENCE Ot K92.0 HEMATEMESIS 06/17/2018 SHAHBAZ CROWDER DIRECTOR OF SCIENCE Ot K92.1 MELENA 06/17/2018 SHAHBAZ CROWDER DIRECTOR OF SCIENCE Ot R19.7 DIARRHEA, UNSPECIFIED 06/17/2018 SHAHBAZ CROWDER DIRECTOR OF SCIENCE Ot K92.0 HEMATEMESIS 06/17/2018 SHAHBAZ CROWDER DIRECTOR OF SCIENCE Ot K92.1 MELENA 06/17/2018 SHAHBAZ CROWDER DIRECTOR OF SCIENCE Ot R19.7 DIARRHEA, UNSPECIFIED 06/17/2018 FELIX DO AMELIA D Ot F31.9 BIPOLAR DISORDER, UNSPECIFIED 06/17/2018 FELIX DO, AMELIA D Ot F32.9 MAJOR DEPRESSIVE DISORDER, SINGLE EPISOD 06/17/2018 FELIX DO, AMELIA D Ot F41.9 ANXIETY DISORDER, UNSPECIFIED 06/17/2018 FELIX DO, AMELIA D Ot G47.00 INSOMNIA, UNSPECIFIED 06/17/2018 FELIX DO AMELIA D Ot K21.9 GASTRO-ESOPHAGEAL REFLUX DISEASE WITHOUT 06/17/2018 FELIX DO, AMELIA D Ot K38.0 HYPERPLASIA OF APPENDIX 06/17/2018 ISIDRO GARCIA AMELIA D Ot K81.1 CHRONIC CHOLECYSTITIS 06/17/2018 OLIVIA FELIX DOTT D Ot Z87.891 PERSONAL HISTORY OF NICOTINE DEPENDENCE 06/21/2018 ISIDRO GARCIA AMELIA D Ot F31.9 BIPOLAR DISORDER, UNSPECIFIED 06/21/2018 ISIDRO GARCIA AMELIA D Ot F32.9 MAJOR DEPRESSIVE DISORDER, SINGLE EPISOD 06/21/2018 FELIX DO AMELIA D Ot F41.9 ANXIETY DISORDER, UNSPECIFIED 06/21/2018 FELIX DO AMELIA D Ot G47.00 INSOMNIA, UNSPECIFIED 06/21/2018 FELIX DO, AMELIA D Ot K21.9 GASTRO-ESOPHAGEAL REFLUX DISEASE WITHOUT 06/21/2018 FELIX DO, AMELIA D Ot K38.0 HYPERPLASIA OF APPENDIX 06/21/2018 FELIX DO AMELIA D Ot K81.1 CHRONIC CHOLECYSTITIS 06/21/2018 FELIX DO AMELIA D Ot Z87.891 PERSONAL HISTORY OF NICOTINE DEPENDENCE Procedures Code [place] [address] INFLUENZA A & B (IN-HOUSE) 08/11/2013 42161 ROUTINE VENIPUNCTURE 08/16/2014 81858 URINE DRUG SCREEN (IN-HOUSE ) 08/16/2014 73170 TSH 08/16/2014 90784 A1C (IN-HOUSE) 08/16/2014 Results Test Result Range Amylase - 01/25/17 20:56 Amylase 56 U/L 20-100 CMP - 07/17/17 09:49 GLUCOSE 64 mg/dL 65-99 UREA NITROGEN (BUN) 18 mg/dL 7-25 CREATININE 1.06 mg/dL 0.60-1.35 eGFR NON-AFR. SAUDI ARABIAN 91 mL/min/1.73m2 > OR=60 eGFR 106 mL/min/1.73m2 [...] 5-8.5 Urine-Protein Negative Negative Urine-RBC 0-2/HPF Urine-Specific [place] >=1.030 1.000-1.030 Urine-WBC 2-5/HPF Urobilinogen 0.2 0.2-1.0 [...] culture - 04/21/18 22:50 Bacterial urine culture [id number] NRG COLONY COUNT . NRG FTX;REPORTABLE 10,000 [...] INFLUENZA A AND B ANTIGENS BY IA [facility] Comprehensive metabolic panel - 04/21/18 [...] or plasma urea nitrogen/creatinine mass ratio 15 [facility] Serum or plasma creatinine measurement with calculation of estimated glomerular filtration rate > [facility] Serum or plasma glucose measurement [...] culture - 04/21/18 23:00 Bacterial blood culture [facility] Bacterial blood culture - 04/21/18 23:15 Bacterial blood culture [facility] Complete blood count (CBC) with automated white [...] - 06/08/18 21:17 Bacterial blood culture NG NR Capillary blood glucose measurement by glucometer (mass/volume) [...] g/dL 3.2-4.5 CALCIUM CORRECTED 8.9 mg/dL 8.5-10.1 Methicillin resistant Staphylococcus aureus (MRSA) screening culture - 09:24 Methicillin resistant Staphylococcus aureus (MRSA) screening culture NEG NRG Encounters ACCT No. Visit Date/Time Discharge Status Pt. Type Provider Facility Loc./Unit Complaint [id number] 10/02/2014 14:57:00 10/02/2014 23:59:59 CLS Outpatient JESUS DA SILVA APRN [id number] 08/16/2014 09:49:00 08/16/2014 23:59:59 CLS Outpatient KHADIJAH COYLE DO [id number] 04/12/2014 14:51:00 04/12/2014 23:59:59 CLS Outpatient JESUS DA SILVA APRN [id number] 10/26/2013 07:49:00 10/26/2013 23:59:59 CLS Outpatient DIANA SESAY DDS [id number] 08/29/2013 15:38:00 08/29/2013 23:59:59 CLS Outpatient KHADIJAH COYLE DO [id number] 08/11/2013 14:18:00 08/11/2013 23:59:59 [place] [id number] 01/15/2018 16:40:00 01/15/2018 23:59:59 CLS Outpatient SUSHMA KAUFFMAN [facility]N [facility] [id number] 07/17/2017 09:20:00 Document Registration [id number] 03/12/2018 18:13:00 Document Registration [id number] 03/12/2018 18:13:00 03/12/2018 21:40:00 DIS Outpatient [facility] [id number] 01/25/2017 20:07:00 01/25/2017 22:10:00 DIS Outpatient KENNEDI MIRANDA [id number] 01/25/2017 20:57:33 Document Registration [id number] 06/17/2018 08:54:00 06/17/2018 14:20:00 DIS Outpatient AMELIA FELIX DO [facility] SDC DILATED APPENDIX, RT. UPPER QUAD. PAIN [id number] 06/16/2018 10:46:00 06/16/2018 13:05:00 DIS Outpatient AMELIA FELIX DO [facility] PREOP [place] APPY [id number] 06/08/2018 20:42:00 06/09/2018 12:07:00 DIS Inpatient KOMAL TURPIN DO [facility] 4TH ABDOMINAL PAIN; DEHYDRATION; N/V/D [id number] 04/22/2018 01:00:00 04/23/2018 14:05:00 DIS Inpatient MANDIE BANEGAS, LINWOOD Juarez [facility] 4TH PNA,UTI,SEPSIS [id number] 04/20/2018 09:23:00 04/20/2018 12:10:00 DIS Outpatient AMELIA FELIX DO [facility] ENDO DIARRHEA/BLOOD IN STOOL/ EPIGASTRIC ABD PAIN [id number] 04/14/2018 05:40:00 04/14/2018 15:00:00 DIS Outpatient AMELIA FELIX DO [facility] PREOP COLONOSCOPY/EGD [id number] 04/01/2018 10:18:00 04/01/2018 23:59:59 CLS Outpatient SHAHBAZ CROWDER [facility] CARD BLOOD IN STOOL, HEMATEMESIS W/ NAUSEA
== END 2018-11-03 12:24 | disposition home or self-care (01) ==
LOC: EDUNIT# 11:55 → ER 11:56
DX: S61.412A Laceration without foreign body of left hand, initial encounter (principal); K21.0 Gastro-esophageal reflux disease with esophagitis; F41.9 Anxiety disorder, unspecified; F31.9 Bipolar disorder, unspecified; Z87.19 Personal history of other diseases of the digestive system; Z88.0 Allergy status to penicillin; Z88.6 Allergy status to analgesic agent; Z88.8 Allergy status to other drugs, medicaments and biological substances; Z87.891 Personal history of nicotine dependence; Z90.49 Acquired absence of other specified parts of digestive tract; Z98.890 Other specified postprocedural states; Z87.01 Personal history of pneumonia (recurrent); Z87.442 Personal history of urinary calculi; W26.8XXA Contact with other sharp object(s), not elsewhere classified, initial encounter
CPT/HCPCS: 90715; 99284

== ENCOUNTER 2019-04-17 02:17 | Emergency (ER) | payer SELFPAY ==
[~2019-04-17] VITALS: Ht 170 cm; Wt 72.7 kg
[2019-04-17] MEDS ORDERED: RX-NAPROXEN (NAPROSYN) 250 MG TAB PPK#4 PO STA (03:23)
[2019-04-17] MEDS ORDERED: NAPR-915 PO (03:26)
[2019-04-17] MEDS ORDERED: LIDO15SO2 MM (03:26)
[2019-04-17] MEDS ORDERED: CLIN300C11 PO (03:26)
--- NOTE | 2019-04-17 03:26 | ED EENT ---
History of Present Illness General Chief Complaint: Dental Problems/Pain Stated Complaint: MOUTH PAIN Nursing Triage Note: Pt amb to room #6 with c/o dental pain. Pt reports for past "couple days" he has been experiencing upper lt dental pain. Reports pain became severer and woke him up from sleep this morning. Upper lt canine tooth noted to be darkened and broken. Source: patient History of Present Illness Date Seen by Provider: Apr 17, 2019 Time Seen by Provider: 02:59 Initial Comments PT ARRIVES VIA POV FROM HOME C/O DENTAL PAIN STATES THAT HIS "TOOTH BROKE OFF A COUPLE OF WEEKS AGO" HAS HAD INCREASED PAIN OVER THE LAST COUPLE OF DAYS. 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 HAS BEEN TO [facility] IN PAST, BUT NOT FOR A LONG TIME Allergies and Home Medications Allergies Coded Allergies: Penicillins (Verified Allergy, Unknown, ANAPHYLAXIS, 04/15/18) diphenhydramine (Verified Allergy, Unknown, RASH, 04/15/18) ibuprofen (Verified Allergy, Unknown, RASH, 04/15/18) Home Medications Buspirone HCl 10 Mg Tablet, 10 MG PO BID, (Reported) LAST FILLED #60 04-27-18 Clindamycin HCl 300 Mg Capsule, 300 MG PO QID Prescribed by: ODALIS KAPADIA on 04/17/19 032 Docusate Sodium 100 Mg Capsule, 100 MG PO DAILY Prescribed by: AMELIA FELIX on 06/17/18 1110 Fluoxetine HCl 10 Mg Capsule, 30 MG PO DAILY, (Reported) LAST FILLED #90 04-27-18 TAKES 3 (10MG) CAPSULES Hydrocodone Bit/Acetaminophen 1 Tab Tab, 1-2 TAB PO Q6H PRN for PAIN-MODERATE Prescribed by: AMELIA FELIX on 06/17/18 1110 Lidocaine HCl 15 Ml Solution, 15 ML MM Q 1-2 HOURS Prescribed by: ODALIS KAPADIA on 04/17/19 032 Naproxen 500 Mg Tablet, 500 MG PO BID Prescribed by: ODALIS KAPADIA on 04/17/19 032 Pantoprazole Sodium 40 Mg Tablet.dr, 40 MG PO DAILY, (Reported) LAST FILLED #30 04-20-18 Quetiapine Fumarate 100 Mg Tablet, 100 MG PO HS, (Reported) LAST FILLED #30 18 Sucralfate 1 Gm Tablet, 1 GM PO ACHS PRN for STOMACH UPSET, (Reported) LAST FILLED #120 03-13-18 Triamcinolone Acet 15 Gm Cr, TOP BID, (Reported) Patient Home Medication List Home Medication List Reviewed: Yes Review of Systems Review of Systems Constitutional: no symptoms reported Mouth: see HPI Throat: no symptoms reported Respiratory: no symptoms reported Cardiovascular: no symptoms reported Musculoskeletal: no symptoms reported Neurological: No Symptoms Reported Past Oyjluew-Ibcsfs-Nkavfg Hx Past Med/Social Hx: Reviewed and Corrections made Patient Social History Alcohol Use: Past History (HISTORY OF ABUSE, CLAIMS NO USE "FOR YEARS" ) Recreational Drug Use: No (DENIES) Smoking Status: Former Smoker (1 PPD, QUIT A FEW YEARS AGO. ) Type Used: Cigarettes 2nd Hand Smoke Exposure: No Recent Foreign Travel: No Contact w/Someone Who Travel: No Recent Infectious Disease Expo: No Recent Hopitalizations: No (approx. 1 month ago for pne/sepsis) Immunizations Up To Date Tetanus Booster (TDap): Unknown Seasonal Allergies Seasonal Allergies: No Past Medical History Surgeries: Yes (lump removed from tongue, egd, colonoscopy) Appendectomy, Gallbladder Respiratory: Yes (PNEUMONIA 04/2018) Pneumonia Cardiac: No Neurological: No Reproductive Disorders: No Sexually Transmitted Disease: No HIV/AIDS: No Genitourinary: Yes Kidney Stones Gastrointestinal: Yes (ONGOING NAUSEA/VOMITING/DIARRHEA) Gastroesophageal Reflux, Esophagitis, Hiatal Hernia Musculoskeletal: No Endocrine: No HEENT: Yes (DENTAL CARIES) Cancer: No Psychosocial: Yes (ANGER ISSUES--SUPPOSED TO BE ON SEROQUEL AND PROZAC, BUT SELF DC'D > 1 YEAR AGO, PER PT ON 04/17/19) Sleep Difficulties, Anxiety, Bipolar, Depression Integumentary: No Blood Disorders: No Adverse Reaction/Blood Tranf: No Family Medical History Diabetes mellitus 19 FATHER Diabetes Physical Exam Vital Signs Vital Signs - First Documented 04/17/19 02:32 Temp 36.9 Pulse 96 Resp 17 B/P (MAP) 153/110 (124) Pulse Ox 96 O2 Delivery Room Air Height, Weight, BMI Height: 5'7.00" Weight: 180lbs. 0.0oz. 81.785772ta; 25.00 BMI Method:Stated General Appearance: WD/WN, other (ANXIOUS) Eyes: bilateral eye normal inspection, bilateral eye PERRL, bilateral eye EOMI Nose: normal inspection Mouth/Throat: other (LEFT UPPER PREMOLAR--EXTENSIVE CARIES TO GUM LINE, WITH HALF OF TOOTH BROKEN OFF/MISSING. SLIGHT SWELLING AND ERYTHEMA TO SURROUNDING GUM TISSUE. NO FLUCTUANCE, NO DRAINAGE. ) Neck: normal inspection Cardiovascular: regular rate, rhythm Respiratory: normal breath sounds Neurologic/Psychiatric: lab asst II-XII nml as tested, no motor/sensory deficits, alert, oriented x 3 Skin: normal color, warm/dry Progress/Results/Core Measures Results/Orders My Orders Orders - ODALIS KAPADIA DO Lidocaine 2% Viscous 15 Ml (Xylocaine Vi (04/17/19 03:30) Rx-Naproxen (Rx-Naprosyn) (04/17/19 03:23) Clindamycin Capsule (Cleocin Capsule) (04/17/19 03:30) Medications Given in ED Current Medications Medications Dose Ordered Sig/Mitzy Route Start Time Stop Time Status Last Admin Dose Admin Clindamycin HCl 300 mg ONCE ONCE PO 04/17/19 03:30 04/17/19 03:31 DC 04/17/19 03:45 300 MG Lidocaine HCl 5 ml ONCE ONCE MM 04/17/19 03:30 04/17/19 03:31 DC 04/17/19 03:46 5 ML Vital Signs/I&O 04/17/19 04/17/19 02:32 04:01 Temp 36.9 36.9 Pulse 96 85 Resp 17 17 B/P (MAP) 153/110 (124) 143/98 (124) Pulse Ox 96 97 O2 Delivery Room Air Room Air Blood Pressure Mean: 124 Departure Impression Primary Impression: Dental caries Disposition: HOME, SELF-CARE Condition: Stable Departure-Patient Inst. Referrals: NO,LOCAL PHYSICIAN (PCP) Primary Care Physician SHAHBAZ CROWDER (Family) Primary Care Physician Patient Instructions: Tooth Decay, Adult (DC), Dental Pain (DC) Add. Discharge Instructions: FREQUENT SALT WATER SWISHES TYLENOL NEEDED FOR PAIN FOLLOW UP WITH [facility] ON THURSDAY FOR FURTHER CARE All discharge instructions reviewed with patient and/or family. Voiced und erstanding. Scripts Naproxen (Naproxen) 500 Mg Tablet 500 MG PO BID, #20 TAB Prov: ODALIS KAPADIA DO 04/17/19 Lidocaine HCl (Lidocaine HCl Viscous) 15 Ml Solution 15 ML MM Q 1-2 HOURS, #120 ML Prov: ODALIS KAPADIA DO 04/17/19 Clindamycin HCl (Clindamycin HCl) 300 Mg Capsule 300 MG PO QID for FOR INFECTION, #40 CAP Prov: ODALIS KAPADIA DO 04/17/19 ODALIS KAPADIA DO Apr 17, 2019 03:26
[2019-04-17] MEDS ORDERED: LIDOCAINE 2% VISCOUS 15 ML UDC MM ONE (03:30)
[2019-04-17] MEDS ORDERED: CLINDAMYCIN 150 MG (CLEOCIN) CAP PO ONE (03:30)
[2019-04-17 04:01] VITALS: BP 143/98
== END 2019-04-17 04:01 | disposition home or self-care (01) ==
LOC: EDUNIT# 02:17 → ER 02:19
DX: K02.9 Dental caries, unspecified (principal); K21.0 Gastro-esophageal reflux disease with esophagitis; F41.9 Anxiety disorder, unspecified; F31.9 Bipolar disorder, unspecified; Z88.0 Allergy status to penicillin; Z88.8 Allergy status to other drugs, medicaments and biological substances; Z88.6 Allergy status to analgesic agent; Z87.891 Personal history of nicotine dependence; Z90.49 Acquired absence of other specified parts of digestive tract; Z87.442 Personal history of urinary calculi
CPT/HCPCS: 99283